=== PATIENT | female | born 1980 | race Caucasian/White ===

== ENCOUNTER 2021-05-12 10:31 | Outpatient (REF) | payer OTHER, SELFPAY ==
[2021-05-12 12:30] LABS: MANUAL DIFF FLAG NO
[2021-05-12 12:36] LABS: Appearance Urine CLOUDY; Color Urine YELLOW; Glucose Urine UA NEG (NEG); Leukocyte Esterase Urine NEG (NEG); Nitrite Urine NEG (NEG); PH 5.5 (5.0-8.0); Specific Gravity - Urine >= 1.030 (1.005-1.025); Urine Blood NEG (NEG); Urine Ketones NEG (NEG); Urine Protein NEG (NEG-TRACE)
[2021-05-12 12:38] LABS: Basophils Absolute Auto 0.1 X10*3/uL (0.0-0.2); Basophils Percent Auto 0.8 % (0-2); Eosinophils Absolute Auto 0.3 X10*3/uL (0.0-0.4); Eosinophils Percent Auto 4.1 % (0-4); Hemoglobin 12.5 g/dl (12.0-16.0); Imm Gran Abs Auto 0.02 X10*3/uL (0.00-0.03); Imm Gran Pct Auto 0.3 % (0.0-0.4); Lymphocytes Absolute Auto 1.5 X10*3/uL (1.2-4.9); Lymphocytes Percent Auto 22.8 % (20-40); Mean Corpuscular HGB Conc 32.9 g/dl (31.0-35.0); Mean Corpuscular Hemoglobin 29.5 pg (27.0-33.0); Mean Corpuscular Volume 89.6 fL (80.0-98.0); Mean Platelet Volume 11.7 fL (9.4-12.3); Monocytes Absolute Auto 0.4 X10*3/uL (0.1-1.2); Monocytes Percent Auto 6.4 % (2-11); Neutrophils Absolute Auto 4.3 x10*3/uL (2.0-8.3); Neutrophils Percent Auto 65.6 % (45-73); Platelet Count 262 X10*3/uL (160-400); Red Blood Count 4.24 X10*6/uL (4.20-5.50); Red Cell Distribution Width 11.9 % (11.0-16.0); White Blood Count 6.5 X10*3/uL (4.8-10.8)
[2021-05-12 13:07] LABS: Alanine Aminotransferase 13 U/L (0-31); Alkaline Phosphatase 92 U/L (39-117); Anion Gap 13 (12-20); Aspartate Amino Transferase 14 U/L (5-31); Bilirubin Total 0.3 mg/dL (0.0-1.0); Blood Urea Nitrogen 11 mg/dL (9-16); Calcium 9.3 mg/dL (8.4-10.2); Carbon Dioxide 24 mmol/L (22-29); Chloride 106 mmol/L (96-108); Cholesterol 207 mg/dL; Estimated Glomerular Filt Rate > 60; Glucose Fasting 90 mg/dL (60-99); HDL Cholesterol 68 mg/dL; LDL Cholesterol Calculated 124 mg/dl; Sodium 139 mmol/L (135-145); Total Protein 6.8 g/dL (6.5-8.0); Triglycerides 79 mg/dL
[2021-05-12 13:28] LABS: TSH reflex Free T4 1.71 uIU/mL (0.32-4.0)
== END 2021-05-12 10:32 | disposition home or self-care (01) ==
LOC: HO.HMGCLDS 10:31
PROVIDERS: PCP Nurse Practitioner Family; Visit Provider Nurse Practitioner Family
DX: Z00.00 Encounter for general adult medical examination without abnormal findings (principal)
CPT/HCPCS: 36415; 80053; 80061; 81003; 84443; 85025

== ENCOUNTER 2021-09-11 09:43 | Outpatient (REF) | payer OTHER, SELFPAY ==
--- NOTE | ~2021-09-11 | XR_ITS ---
EXAMINATION: XR CHEST CLINICAL INFORMATION: R07.9 - Chest pain, unspecified COMPARISON: None TECHNIQUE: 2 views of the chest were obtained. FINDINGS: The lungs are clear. There is no pneumothorax or pleural reaction, airspace opacity, or effusion. The heart is normal in size. The hilar and mediastinal contours are normal. There is gentle dextrocurvature thoracic spine. Bony structures are otherwise unremarkable. XR/XR chest 2V IMPRESSION: Unremarkable examination.
[2021-09-11 11:38] LABS: MANUAL DIFF FLAG NO
[2021-09-11 11:58] LABS: Basophils Percent Auto 0.5 % (0-2); Eosinophils Absolute Auto 0.2 X10*3/uL (0.0-0.4); Eosinophils Percent Auto 3.1 % (0-4); Hematocrit 36.7 % (37.0-47.0); Hemoglobin 12.1 g/dl (12.0-16.0); Imm Gran Abs Auto 0.01 X10*3/uL (0.00-0.03); Imm Gran Pct Auto 0.2 % (0.0-0.4); Lymphocytes Absolute Auto 1.3 X10*3/uL (1.2-4.9); Lymphocytes Percent Auto 19.4 % (20-40); Mean Corpuscular Hemoglobin 28.7 pg (27.0-33.0); Mean Corpuscular Volume 87.2 fL (80.0-98.0); Mean Platelet Volume 11.3 fL (9.4-12.3); Monocytes Absolute Auto 0.4 X10*3/uL (0.1-1.2); Monocytes Percent Auto 6.1 % (2-11); Neutrophils Absolute Auto 4.6 x10*3/uL (2.0-8.3); Neutrophils Percent Auto 70.7 % (45-73); Platelet Count 281 X10*3/uL (160-400); Red Blood Count 4.21 X10*6/uL (4.20-5.50); Red Cell Distribution Width 12.2 % (11.0-16.0); White Blood Count 6.5 X10*3/uL (4.8-10.8)
[2021-09-11 12:03] LABS: Anion Gap 11 (12-20); Blood Urea Nitrogen 14 mg/dL (9-16); Calcium 9.4 mg/dL (8.4-10.2); Carbon Dioxide 25 mmol/L (22-29); Chloride 105 mmol/L (96-108); Estimated Glomerular Filt Rate > 60; Glucose Random 96 mg/dL (60-115); Potassium 4.3 mmol/L (3.3-5.1); Sodium 137 mmol/L (135-145)
[2021-09-11 12:29] LABS: TSH reflex Free T4 0.46 uIU/mL (0.32-4.0)
[2021-09-11 12:38] LABS: Folate > 20.0 ng/mL (> or = 4.0); Vitamin B12 500 pg/mL (200-900)
[2021-09-15 12:47] LABS: Vitamin D 25-OH, D2 <4 ng/mL; Vitamin D 25-OH, D3 25 ng/mL; Vitamin D 25-OH, Total 25 ng/mL (30-100)
== END 2021-09-11 09:44 | disposition home or self-care (01) ==
LOC: HO.HMGCX 09:43
PROVIDERS: PCP Nurse Practitioner Family; Visit Provider Physician Assistant
DX: R07.9 Chest pain, unspecified (principal); R55 Syncope and collapse; R20.2 Paresthesia of skin
CPT/HCPCS: 36415; 71046; 80048; 82306; 82607; 82746; 84443; 85025

== ENCOUNTER 2021-11-11 09:52 | Outpatient (REF) | payer OTHER, SELFPAY ==
[2021-11-11 11:29] LABS: MANUAL DIFF FLAG NO
[2021-11-11 11:31] LABS: Basophils Percent Auto 0.4 % (0-2); Eosinophils Absolute Auto 0.3 X10*3/uL (0.0-0.4); Eosinophils Percent Auto 3.3 % (0-4); Hemoglobin 12.1 g/dl (12.0-16.0); Imm Gran Abs Auto 0.04 X10*3/uL (0.00-0.03); Imm Gran Pct Auto 0.4 % (0.0-0.4); Lymphocytes Absolute Auto 1.1 X10*3/uL (1.2-4.9); Lymphocytes Percent Auto 11.9 % (20-40); Mean Corpuscular HGB Conc 32.7 g/dl (31.0-35.0); Mean Corpuscular Hemoglobin 28.9 pg (27.0-33.0); Mean Corpuscular Volume 88.5 fL (80.0-98.0); Mean Platelet Volume 11.2 fL (9.4-12.3); Monocytes Absolute Auto 0.6 X10*3/uL (0.1-1.2); Monocytes Percent Auto 5.9 % (2-11); Neutrophils Absolute Auto 7.4 x10*3/uL (2.0-8.3); Neutrophils Percent Auto 78.1 % (45-73); Platelet Count 237 X10*3/uL (160-400); Red Blood Count 4.18 X10*6/uL (4.20-5.50); Red Cell Distribution Width 12.6 % (11.0-16.0); White Blood Count 9.5 X10*3/uL (4.8-10.8)
[2021-11-11 11:36] LABS: Appearance Urine CLEAR; Color Urine YELLOW; Glucose Urine UA NEG (NEG); Leukocyte Esterase Urine TRACE (NEG); Nitrite Urine NEG (NEG); Specific Gravity - Urine 1.015 (1.005-1.025); Urine Blood NEG (NEG); Urine Ketones NEG (NEG); Urine Protein NEG (NEG-TRACE)
[2021-11-11 11:51] LABS: Alanine Aminotransferase 10 U/L (0-31); Albumin Level 3.9 g/dL (3.5-5.0); Alkaline Phosphatase 91 U/L (39-117); Anion Gap 13 (12-20); Aspartate Amino Transferase 13 U/L (5-31); Bilirubin Total 0.4 mg/dL (0.0-1.0); Blood Urea Nitrogen 13 mg/dL (9-16); Carbon Dioxide 23 mmol/L (22-29); Chloride 105 mmol/L (96-108); Cholesterol 216 mg/dL; Estimated Glomerular Filt Rate > 60; Glucose Fasting 93 mg/dL (60-99); HDL Cholesterol 74 mg/dL; LDL Cholesterol Calculated 120 mg/dl; Sodium 137 mmol/L (135-145); Total Protein 6.9 g/dL (6.5-8.0); Triglycerides 110 mg/dL
[2021-11-11 11:54] LABS: RBC Urine 0 /HPF (0); Squamous Epithelial Cell Urine 2+ /LPF
[2021-11-11 11:55] LABS: Bacteria Urine TRACE /LPF; Mucus Urine TRACE /LPF
[2021-11-11 12:14] LABS: TSH reflex Free T4 1.85 uIU/mL (0.32-4.0)
== END 2021-11-11 09:53 | disposition home or self-care (01) ==
LOC: HO.HMGCLDS 09:52
PROVIDERS: PCP Nurse Practitioner Family; Visit Provider Nurse Practitioner Family
DX: R07.9 Chest pain, unspecified (principal)
CPT/HCPCS: 36415; 80053; 80061; 81001; 84443; 85025

== ENCOUNTER 2021-11-14 11:25 | Emergency (ER) | payer OTHER, SELFPAY ==
--- NOTE | ~2021-11-14 | CT_ITS ---
EXAMINATION: CT SOFT TISSUE NECK WITH CONTRAST CLINICAL INFORMATION: Right-sided tonsillar swelling. COMPARISON: No relevant prior imaging. TECHNIQUE: Following the intravenous administration of 100 mL of Omnipaque 350 intravenous contrast, helical imaging was performed in the axial plane with generation of coronal and sagittal reformatted images. This CT examination was performed using dose optimization techniques as appropriate, variously including the following: *Automated exposure control *Adjustment of mA and/or kV according to patient size (this includes techniques or standardized protocols for targeted exams where dose is matched to indication/reason for exam; i.e. extremities or head) *Use of iterative reconstruction technique DLP: 612 mGy-cm FINDINGS: There is a peripherally enhancing collection within the right peritonsillar region best depicted on axial image 27 of 89 series 6 measuring 2.2 cm in maximal transaxial dimension. Possible subtle stranding within the parapharyngeal fat. There are a few nearby a right level II cervical lymph nodes that demonstrate subtle enhancement however the size of these lymph nodes remains within limits of normal variation and there are no worrisome enhancement characteristics associated with these lymph nodes to suggest capsular invasion or central necrosis. There is no mediastinal or axillary adenopathy is visualized within the [id number] of this examination. Manager Benefit spaces are symmetric. The parotid and submandibular glands are normal. The tongue base and epiglottis are normal. Preepiglottic fat is preserved. Glottic and subglottic airways are patent. The thyroid gland is normal and the remainder of the visualized visceral soft tissues are normal. Lung apices are clear. The aortic arch apex is normal. Cervical carotid and vertebral arteries are grossly patent. Internal jugular veins fill symmetrically. There is no acute osseous finding. No worrisome lytic or blastic osseous lesion. CT/CT soft tissue neck w con IMPRESSION: There is a nonspecific cystic right peritonsillar lesion that measures up to 2.2 cm in maximal transaxial dimension. Possible diagnostic considerations include a peritonsillar abscess or a centrally necrotic right tonsillar neoplasm. Correlation with clinical examination is therefore recommended with regard to these possibilities. There are a few asymmetrically prominent albeit otherwise nonspecific right sided level II cervical lymph nodes, none of which demonstrate worrisome enhancement characteristics to suggest capsular invasion or central necrosis.
[2021-11-14 13:06] VITALS: BP 156/99; PULSE 76; RESP 19; TEMP 36.6; O2SAT 98; BMI 32.0
--- NOTE | 2021-11-14 13:47 | ED_ITS ---
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 MD elicited complaint: sore throat Pertinent past history: asthma Onset (ago): day(s) (5) Consistency: progressively worsening Severity: moderate Description of mucous: clear Able to tolerate fluids by mouth: Yes Exacerbating factors: swallowing Relieving factors: nothing Associated symptoms: voice changes Treatments prior to arrival: ibuprofen (7am, prednisone today as well) Related Data Home Medications Medication Instructions Recorded Confirmed metformin 500 mg tablet 500 mg PO BID 05/09/21 11/07/21 Previous Rx's Medication Instructions Recorded albuterol sulfate 90 mcg/actuation 2 puff PO Q4H PRN wheezing #6.7 05/09/21 aerosol inhaler (ProAir HFA) grams albuterol sulfate 90 mcg/actuation 2 inh inhalation Q6H PRN shortness 05/29/21 breath activated powder inhaler of breath or wheezing #1 ea (ProAir RespiClick) cetirizine 10 mg tablet (All Day 10 mg PO DAILY PRN allergy 10/02/21 Allergy (cetirizine)) symptoms 90 days #90 tabs levothyroxine 100 mcg tablet 100 mcg PO DAILY #90 tabs 10/06/21 ibuprofen 800 mg tablet 800 mg PO Q8H PRN pain #30 tabs 11/11/21 prednisone 20 mg tablet 40 mg PO DAILY 5 days #10 tabs 11/11/21 amoxicillin 500 mg tablet 500 mg PO BID 10 days #20 tabs 11/14/21 amoxicillin 875 mg-potassium 1 tab PO BID 10 days #20 tabs 11/14/21 clavulanate 125 mg tablet hydrocodone 5 mg-acetaminophen 325 1 tab PO Q6H PRN pain #10 tabs 11/14/21 mg tablet ondansetron 4 mg disintegrating 4 mg PO Q8H PRN nausea and 11/14/21 tablet vomiting #20 tabs Allergies Allergy/AdvReac Type Severity Reaction Status Date / Time aspirin Allergy Mild mild Verified 11/14/21 08:58 Review of Systems Review of Systems: Constitutional : No Fever, pos Chills, No Fatigue, No Malaise ENT/Mouth : pos sore throat, No Rhinorrhea Eyes: No Eye Pain, No Swelling, No Redness Cardiovascular : No Chest Pain, No SOB Respiratory : No Cough, No Sputum, No Wheezing Gastrointestinal : No Nausea, No Vomiting, No Diarrhea Genitourinary : No Dysuria, No Urinary Frequency, No Hematuria, Musculoskeletal : No joint pain, No Myalgias, No Joint Swelling Skin : No Skin Lesions, No rash Neuro : No Weakness, No Numbness, No Dizziness, No Headache Psych : No Anxiety/Panic, No Depression Heme/Lymph: No Bruising, No Bleeding, pos Lymphadenopathy All other systems reviewed and are negative [facility] Past Medical History Attestation statement: The following information was validated with the patient. Medical History Asthma PCOS (polycystic ovarian syndrome) Social History Social History Housing: Apartment Patient Tobacco Use Status: Never used Tobacco e-Cigarette/Vaping Use: Never Used Second Hand Smoke Exposure: No Advance Directives: No Advance Directives Information Provided: Yes service: No Current occupational status: employed Current occupation: [employer] Current occupational exposures/hazards: No Cognitive needs: No Hearing needs: No Vision needs: No Physical Exam Vital Signs: Vital Signs: Last Vital Signs Temp 98 F 11/14/21 13:06 Pulse 76 11/14/21 13:06 Resp 19 11/14/21 13:06 BP 156/99 H 11/14/21 13:06 Pulse Ox 98 11/14/21 13:06 O2 Del Method 11/14/21 13:06 BMI result Body Mass Index 32.0 Appearance: Alert. Oriented X3. No acute distress. Eyes: Pupils equal, round and reactive to light. ENT: Pharynx moderate swelling of R tonsil uvula is midline no exudates noted Neck: Normal inspection. Neck supple. mild anterior cervical lymphadenophathy noted CVS: Normal heart rate and rhythm. Pulses normal. Respiratory: No respiratory distress. Breath sounds normal. Abdomen: Soft and nontender. Skin: Skin warm and dry. Normal skin color. Normal skin turgor. Extremities: No lower extremity edema. No calf ttp Neuro: Oriented X 3. No motor deficit. No sensory deficit. 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 Dispo per r esults and findings. Lab Data Result diagrams: 11/14/21 14:39 11/14/21 14:39 Labs: Lab Results 11/14/21 11/14/21 Range/Units 14:39 14:39 WBC 12.6 H (4.8-10.8) X10*3/uL RBC 4.24 (4.20-5.50) X10*6/uL Hgb 12.5 (12.0-16.0) g/dl Hct 37.3 (37.0-47.0) % MCV 88.0 (80.0-98.0) fL MCH 29.5 (27.0-33.0) pg MCHC 33.5 (31.0-35.0) g/dl RDW 12.7 (11.0-16.0) % Plt Count 263 (160-400) X10*3/uL MPV 11.3 (9.4-12.3) fL Immature Gran % (Auto) 0.4 (0.0-0.4) % Neut % (Auto) 83.2 H (45-73) % Lymph % (Auto) 11.6 L (20-40) % [place] % (Auto) 4.5 (2-11) % Eos % (Auto) 0.1 (0-4) % Baso % (Auto) 0.2 (0-2) % Lymph # (Auto) 1.5 (1.2-4.9) X10*3/uL [place] # (Auto) 0.6 (0.1-1.2) X10*3/uL Eos # (Auto) 0.0 (0.0-0.4) X10*3/uL Baso # (Auto) 0.0 (0.0-0.2) X10*3/uL Abs Immat Gran (auto) 0.05 H (0.00-0.03) X10*3/uL Absolute Neuts (auto) 10.5 H (2.0-8.3) x10*3/uL Absolute Nucleated RBC 0.000 (0.0-0.012) X10*3/uL Nucleated RBC % (auto) 0.0 (0.0-0.2) /100WBC Sodium 137 (135-145) mmol/L Potassium 4.5 (3.3-5.1) mmol/L Chloride 103 (96-108) mmol/L Carbon Dioxide 23 (22-29) mmol/L Anion Gap 16 (12-20) BUN 11 (9-16) mg/dL Creatinine 0.67 (0.5-1.4) mg/dL Estim Creat Clear Calc 107.8 Estimated GFR > 60 Random Glucose 129 H (60-115) mg/dL Calcium 9.2 (8.4-10.2) mg/dL Beta HCG, Quant < 2 mIU/mL Procedures Abscess I/D Site: oral (R CREDIT UNION TELLER) Side (if applicable): right Local Anesthetic: lidocaine 1% Amount of anesthesia used (mL): 1 Technique: needle aspiration Amount of fluid expressed (mL): 0 Sent for culture/gram staining?: No Irrigation: No Packing used?: none Complications: other (unable to aspirate after 3 attempts - last attempt done by Dr. Bailey) Discharge Plan Discharge Clinical Impression: Abscess, peritonsillar Pharyngitis Qualifiers: Pharyngitis/tonsillitis etiology: unspecified etiology Qualified Code(s): J02.9 - Acute pharyngitis, unspecified Patient Disposition: Home, Self-Care Instructions: Pharyngitis (ED), Peritonsillar Abscess (ED) Additional Instructions: return to ED for any worsening symptoms or concerns soft foods for next 3 days very minimal scant streaked blood is okay do not take aspirin large amounts of blood or clots is not normal seek care if this happens you can also try [facility] [address] [id number] [phone] [facility] [address] [facility] [phone] Prescriptions: New amoxicillin-pot clavulanate 875-125 mg tablet 1 tab PO BID 10 Days Qty: 20 0RF hydrocodone-acetaminophen 5-325 mg tablet 1 tab PO Q6H PRN (Reason: pain) Qty: 10 0RF Rx Instructions: partial fill okay; Partial Fill upon patient request. ondansetron 4 mg tablet,disintegrating 4 mg PO Q8H PRN (Reason: nausea and vomiting) Qty: 20 0RF No Action ProAir RespiClick 90 mcg/actuation aerosol powdr breath activated 2 inh inhalation Q6H PRN (Reason: shortness of breath or wheezing) Qty: 1 0RF cetirizine [All Day Allergy (cetirizine)] 10 mg tablet 10 mg PO DAILY PRN (Reason: allergy symptoms) 90 Days Qty: 90 1RF levothyroxine 100 mcg tablet 100 mcg PO DAILY Qty: 90 0RF metformin 500 mg tablet 500 mg PO BID albuterol sulfate [ProAir HFA] 90 mcg/actuation HFA aerosol inhaler 2 puff PO Q4H PRN (Reason: wheezing) Qty: 6.7 4RF prednisone 20 mg tablet 40 mg PO DAILY 5 Days Qty: 10 0RF ibuprofen 800 mg tablet 800 mg PO Q8H PRN (Reason: pain) Qty: 30 0RF amoxicillin 500 mg tablet 500 mg PO BID 10 Days Qty: 20 0RF Referrals: Rafael Han [Physician] - 1 day Stand Alone Forms: Work/School Release
[2021-11-14 14:43] LABS: MANUAL DIFF FLAG NO
[2021-11-14 14:47] LABS: Basophils Percent Auto 0.2 % (0-2); Eosinophils Percent Auto 0.1 % (0-4); Hematocrit 37.3 % (37.0-47.0); Hemoglobin 12.5 g/dl (12.0-16.0); Imm Gran Abs Auto 0.05 X10*3/uL (0.00-0.03); Imm Gran Pct Auto 0.4 % (0.0-0.4); Lymphocytes Absolute Auto 1.5 X10*3/uL (1.2-4.9); Lymphocytes Percent Auto 11.6 % (20-40); Mean Corpuscular HGB Conc 33.5 g/dl (31.0-35.0); Mean Corpuscular Hemoglobin 29.5 pg (27.0-33.0); Mean Platelet Volume 11.3 fL (9.4-12.3); Monocytes Absolute Auto 0.6 X10*3/uL (0.1-1.2); Monocytes Percent Auto 4.5 % (2-11); Neutrophils Absolute Auto 10.5 x10*3/uL (2.0-8.3); Neutrophils Percent Auto 83.2 % (45-73); Platelet Count 263 X10*3/uL (160-400); Red Blood Count 4.24 X10*6/uL (4.20-5.50); Red Cell Distribution Width 12.7 % (11.0-16.0); White Blood Count 12.6 X10*3/uL (4.8-10.8)
[2021-11-14] MEDS: Famotidine/PF 20 MG/2 ML VIAL IVPUSH (14:54)
[2021-11-14] MEDS: Ketorolac Tromethamine 15 MG/ML VIAL 30 MG IVPUSH (14:56)
[2021-11-14] MEDS: 0.9 % Sodium Chloride 1,000 ML 999 ML IV (14:59)
[2021-11-14 15:00] LABS: Anion Gap 16 (12-20); Blood Urea Nitrogen 11 mg/dL (9-16); Calcium 9.2 mg/dL (8.4-10.2); Carbon Dioxide 23 mmol/L (22-29); Chloride 103 mmol/L (96-108); Creatinine Clr Calc Pharmacy 107.8; Estimated Glomerular Filt Rate > 60; Glucose Random 129 mg/dL (60-115); Potassium 4.5 mmol/L (3.3-5.1); Sodium 137 mmol/L (135-145)
[2021-11-14] MEDS: Piperacillin Sodium/Tazobactam 3.375 GM in 0.9 % Sodium Chloride 50 ML IV (15:01)
[2021-11-14 15:09] LABS: HCG Quantitative < 2 mIU/mL
[2021-11-14] MEDS: iohexoL 350 MG/ML 100 ML INFUS..BTL IV (15:25)
== END 2021-11-14 17:31 | disposition home or self-care (01) ==
PROVIDERS: Emergency Provider Emergency Medicine; PCP Nurse Practitioner Family
DX: J36 Peritonsillar abscess (principal); J02.9 Acute pharyngitis, unspecified; J45.909 Unspecified asthma, uncomplicated
CPT/HCPCS: 10160; 36415; 70491; 80048; 84702; 85025; 96365; 96375; 99284; J1885; J2543; Q9967

== ENCOUNTER 2022-05-10 11:16 | Outpatient (REF) | payer OTHER, SELFPAY ==
[2022-05-10 14:51] LABS: TSH reflex Free T4 1.46 uIU/mL (0.32-4.0)
[2022-05-10 15:06] LABS: Influenza A PCR NEGATIVE (Negative); Influenza B PCR NEGATIVE (Negative); Resp Syncy Virus RNA Qual PCR NEGATIVE (Negative); SARS COV2 PCR INHOUSE NEGATIVE (Negative)
== END 2022-05-10 11:17 | disposition home or self-care (01) ==
LOC: HO.HMGCLDS 11:16
PROVIDERS: PCP Nurse Practitioner Family; Visit Provider Physician Assistant
DX: Z20.822 Contact with and (suspected) exposure to COVID-19 (principal); E03.9 Hypothyroidism, unspecified; B34.9 Viral infection, unspecified
CPT/HCPCS: 0241U; 36415; 84443

== ENCOUNTER 2022-09-08 09:25 | Outpatient (REF) | payer OTHER, SELFPAY ==
[2022-09-08 11:06] LABS: MANUAL DIFF FLAG NO
[2022-09-08 11:12] LABS: Appearance Urine Clear; Color Urine Yellow; Glucose Urine UA Negative (Negative); Leukocyte Esterase Urine Negative (Negative); Nitrite Urine Negative (Negative); Specific Gravity - Urine 1.025 (1.005-1.025); Urine Blood Negative (Negative); Urine Ketones Negative (Negative); Urine Protein Negative (Neg-Trace)
[2022-09-08 11:14] LABS: Basophils Percent Auto 0.4 % (0-2); Eosinophils Absolute Auto 0.2 X10*3/uL (0.0-0.4); Eosinophils Percent Auto 2.6 % (0-4); Hematocrit 34.9 % (37.0-47.0); Hemoglobin 11.8 g/dl (12.0-16.0); Imm Gran Abs Auto 0.03 X10*3/uL (0.00-0.03); Imm Gran Pct Auto 0.4 % (0.0-0.4); Lymphocytes Absolute Auto 1.3 X10*3/uL (1.2-4.9); Lymphocytes Percent Auto 17.1 % (20-40); Mean Corpuscular HGB Conc 33.8 g/dl (31.0-35.0); Mean Corpuscular Hemoglobin 29.6 pg (27.0-33.0); Mean Corpuscular Volume 87.7 fL (80.0-98.0); Mean Platelet Volume 11.9 fL (9.4-12.3); Monocytes Absolute Auto 0.4 X10*3/uL (0.1-1.2); Monocytes Percent Auto 5.3 % (2-11); Neutrophils Absolute Auto 5.8 x10*3/uL (2.0-8.3); Neutrophils Percent Auto 74.2 % (45-73); Platelet Count 198 X10*3/uL (160-400); Red Blood Count 3.98 X10*6/uL (4.20-5.50); White Blood Count 7.8 X10*3/uL (4.8-10.8)
[2022-09-08 11:33] LABS: Alanine Aminotransferase 10 U/L (0-31); Albumin Level 3.4 g/dL (3.5-5.0); Alkaline Phosphatase 72 U/L (39-117); Anion Gap 12 (12-20); Aspartate Amino Transferase 11 U/L (5-31); Bilirubin Total 0.3 mg/dL (0.0-1.0); Blood Urea Nitrogen 7 mg/dL (9-16); Calcium 8.6 mg/dL (8.4-10.2); Carbon Dioxide 23 mmol/L (22-29); Chloride 106 mmol/L (96-108); Cholesterol 257 mg/dL; Estimated Glomerular Filt Rate > 60; Glucose Fasting 77 mg/dL (60-99); HDL Cholesterol 84 mg/dL; LDL Cholesterol Calculated 151 mg/dl; Potassium 3.7 mmol/L (3.3-5.1); Sodium 137 mmol/L (135-145); Total Protein 6.1 g/dL (6.5-8.0); Triglycerides 112 mg/dL
[2022-09-08 11:51] LABS: TSH reflex Free T4 0.58 uIU/mL (0.32-4.0)
== END 2022-09-08 09:26 | disposition home or self-care (01) ==
LOC: HO.HMGCLDS 09:25
PROVIDERS: PCP Nurse Practitioner Family; Visit Provider Nurse Practitioner Family
DX: Z00.00 Encounter for general adult medical examination without abnormal findings (principal)
CPT/HCPCS: 36415; 80053; 80061; 81003; 84443; 85025

== ENCOUNTER 2022-10-29 08:22 | Outpatient (REF) | payer OTHER, SELFPAY ==
[2022-10-29 11:12] LABS: MANUAL DIFF FLAG NO
[2022-10-29 11:31] LABS: Basophils Percent Auto 0.4 % (0-2); Eosinophils Absolute Auto 0.3 X10*3/uL (0.0-0.4); Eosinophils Percent Auto 2.6 % (0-4); Hematocrit 33.8 % (37.0-47.0); Imm Gran Abs Auto 0.05 X10*3/uL (0.00-0.03); Imm Gran Pct Auto 0.5 % (0.0-0.4); Immature Retic Fraction 25.5 % (3.0-15.9); Lymphocytes Absolute Auto 1.5 X10*3/uL (1.2-4.9); Lymphocytes Percent Auto 13.7 % (20-40); Mean Corpuscular HGB Conc 32.5 g/dl (31.0-35.0); Mean Corpuscular Hemoglobin 29.8 pg (27.0-33.0); Mean Corpuscular Volume 91.6 fL (80.0-98.0); Mean Platelet Volume 12.3 fL (9.4-12.3); Monocytes Absolute Auto 0.5 X10*3/uL (0.1-1.2); Monocytes Percent Auto 4.7 % (2-11); Neutrophils Absolute Auto 8.3 x10*3/uL (2.0-8.3); Neutrophils Percent Auto 78.1 % (45-73); Platelet Count 185 X10*3/uL (160-400); Red Blood Count 3.69 X10*6/uL (4.20-5.50); Red Cell Distribution Width 12.8 % (11.0-16.0); Retic HGB Equivalent 34.8 pg (30.0-35.0); Reticulocyte Percent 2.3 % (0.5-1.8); Reticulocytes Absolute 0.083 X10*6/uL (0.026-0.095); White Blood Count 10.6 X10*3/uL (4.8-10.8)
[2022-10-29 11:51] LABS: Cholesterol 273 mg/dL; HDL Cholesterol 94 mg/dL; Iron 38 mcg/dL (30-160); LDL Cholesterol Calculated 155 mg/dl; Percent Iron Saturation 9 % (15-50); Total Iron Binding Capacity 419 mcg/dL (228-428); Triglycerides 122 mg/dL; Unsaturated Iron Binding 381 ug/dL
[2022-10-29 12:27] LABS: Ferritin 12 ng/mL (10-250); Folate 14.1 ng/mL (> or = 4.0); Vitamin B12 529 pg/mL (200-900)
== END 2022-10-29 08:23 | disposition home or self-care (01) ==
LOC: HO.HMGCLDS 08:22
PROVIDERS: PCP Nurse Practitioner Family; Visit Provider Nurse Practitioner Family
DX: D64.9 Anemia, unspecified (principal); E78.5 Hyperlipidemia, unspecified
CPT/HCPCS: 36415; 80061; 82607; 82728; 82746; 83540; 85025; 85045

== ENCOUNTER 2023-01-28 09:34 | Outpatient (AMB) | payer OTHER, SELFPAY ==
[2023-01-28 09:37] VITALS: BP 124/82; PULSE 74; O2SAT 98; BMI 36.3
--- NOTE | 2023-01-28 09:37 | A.OFFPC_ITS ---
Vital Signs 01/28/23 09:37 Height 5 ft 2 in Weight 198 lb 6 oz BMI 36.3 BP 124/82 Blood Pressure Location Rt brachial Position Sitting Pulse 74 Pulse Source Pulse Oximeter Pulse Oximetry (%) 98 Oxygen Delivery Method Room Air Intake Visit Reasons: 6 month follow up High BP Allergies aspirin Allergy (Mild, Verified 01/28/23 09:39) mild Tobacco use date assessed: 01/28/23 Dental Screening Dental Screen Date: 01/28/23 Did you have a dental visit in the last 12 months?: Yes Did you have a dental problem in the last 6 months where you did not have access to dental care?: No Was dental information given to patient?: Patient has dentist HPI 6 month follow up High BP HPI Details Hypothyroid: On levothyroxine 100mcg, 2 days a week she takes 200mcg due to . Will order labs. Denies cold intolerance, fatigue, hair loss, and constipation. Dyslipidemia: Will order labs. [facility] Medical History Asthma PCOS (polycystic ovarian syndrome) Social History (Reviewed 07/31/22 @ 14:12 by Juan Barfield [facility] Housing: Apartment Patient Tobacco Use Status: Never used Tobacco e-Cigarette/Vaping Use: Never Used Second Hand Smoke Exposure: No service: No Current occupational status: employed Current occupation: [employer] Current occupational exposures/hazards: No Cognitive needs: No Hearing needs: No Vision needs: No Questionnaire Thrive Questionnaire Date Thrive assessed: 05/09/21 MARSHALL-7 AMB Questionnaire MARSHALL-7 Date MARSHALL - 7 assessed: 05/09/21 Source: Developed by Drs. Pedro Carmona, Alla Harvey, Adonis Ansari and colleagues, with an educational abraham from [employer]. Review of Systems Const Reports as per HPI Physical exam (Primary Care) Vital Signs: Last Vital Signs Pulse 74 01/28/23 09:37 BP 124/82 01/28/23 09:37 Pulse Ox 98 01/28/23 09:37 Oxygen Delivery Method Room Air 01/28/23 09:37 BMI result Body Mass Index 36.3 Tobacco/Smoking Status: Tobacco use Status Tobacco use date assessed 01/28/23 01/28/23 09:43 Patient Tobacco Use Status Never used Tobacco 01/28/23 09:43 e-Cigarette/Vaping Use Never Used 01/28/23 09:43 Thrive Assessment: Date of Thrive Assessment Date Thrive assessed 05/09/21 01/28/23 09:43 Const General: cooperative Orientation/consciousness: patient oriented x3 Resp Effort & Inspection: normal respiratory effort Auscultation: clear to auscultation bilaterally Cardio Rate: regular rate Rhythm: regular rhythm Heart sounds: S1 normal heart sound present and S2 normal heart sound present Neuro General: patient oriented x3 Psych Appearance: grossly normal Mental Status: mental status grossly normal Speech and movement: Normal speech and movement present Affect: normal affect Attitude: cooperative Thought process: Normal thought process present Thought content: Normal thought content present Insight: Good insight present (Psych) Judgement: Good judgement present (Psych) Assessment and Plan Assessment & Plan (1) Hypothyroidism: Code(s): E03.9 - Hypothyroidism, unspecified Plan: Labs ordered (2) Dyslipidemia: Code(s): E78.5 - Hyperlipidemia, unspecified Plan: Labs ordered Plan The patient agreed to the use of a medical scientific liaison for this encounter. Scribed for [facility] by Denisa Caballero medical scientific liaison, on 01/28/2023 at 09:55 EST. Orders: Orders Complete Blood Count Auto Diff Today E03.9 - Hypothyroidism, unspecified Comprehensive Met. Panel Today E03.9 - Hypothyroidism, unspecified TSH reflex Free T4 Today E03.9 - Hypothyroidism, unspecified UA CC w/rflx Micro + Cult Today E03.9 - Hypothyroidism, unspecified Lipid Panel Today E03.9 - Hypothyroidism, unspecified, E78.5 - Hyperlipidemia, unspecified Coding Level of Care Code Est Pt Level 3 (12839) Diagnoses Hypothyroidism E03.9 Dyslipidemia E78.5
== END 2023-01-28 10:22 | disposition home or self-care (01) ==
PROVIDERS: Visit Provider Nurse Practitioner Family
DX: E03.9 Hypothyroidism, unspecified (principal); E78.5 Hyperlipidemia, unspecified
CPT/HCPCS: 99213

== ENCOUNTER 2023-03-08 12:36 | Outpatient (REF) | payer OTHER, SELFPAY ==
[2023-03-08 16:10] LABS: MANUAL DIFF FLAG NO
[2023-03-08 16:13] LABS: Appearance Urine Clear; Color Urine Yellow; Glucose Urine UA Negative (Negative); Leukocyte Esterase Urine Moderate (2+) (Negative); Nitrite Urine Negative (Negative); PH 6.5 (5.0-9.0); Specific Gravity - Urine 1.015 (1.005-1.025); UMIC TRIGGER UACC YES; Urine Blood Negative (Negative); Urine Ketones Negative (Negative); Urine Protein Negative (Neg-Trace)
[2023-03-08 16:26] LABS: Bacteria Urine None Seen (None Seen); Hyaline Casts Urine 0-2 /LPF (0-2); RBC Urine 0-2 /HPF (0-2); Squamous Epithelial Cell Urine 0-2 /HPF (0-2); WBC Urine 0-5 /HPF (0-5)
[2023-03-08 16:34] LABS: Basophils Percent Auto 0.7 % (0-2); Eosinophils Absolute Auto 0.4 X10*3/uL (0.0-0.4); Eosinophils Percent Auto 6.5 % (0-4); Hemoglobin 13.1 g/dl (12.0-16.0); Imm Gran Abs Auto 0.02 X10*3/uL (0.00-0.03); Imm Gran Pct Auto 0.3 % (0.0-0.4); Lymphocytes Absolute Auto 1.4 X10*3/uL (1.2-4.9); Lymphocytes Percent Auto 24.6 % (20-40); Mean Corpuscular HGB Conc 32.8 g/dl (31.0-35.0); Mean Corpuscular Hemoglobin 29.7 pg (27.0-33.0); Mean Corpuscular Volume 90.7 fL (80.0-98.0); Mean Platelet Volume 11.6 fL (9.4-12.3); Monocytes Absolute Auto 0.4 X10*3/uL (0.1-1.2); Neutrophils Absolute Auto 3.5 x10*3/uL (2.0-8.3); Neutrophils Percent Auto 60.9 % (45-73); Platelet Count 262 X10*3/uL (160-400); Red Blood Count 4.41 X10*6/uL (4.20-5.50); Red Cell Distribution Width 11.6 % (11.0-16.0); White Blood Count 5.7 X10*3/uL (4.8-10.8)
[2023-03-08 16:54] LABS: Alanine Aminotransferase 13 U/L (0-31); Alkaline Phosphatase 120 U/L (39-117); Anion Gap 14 (12-20); Aspartate Amino Transferase 14 U/L (5-31); Bilirubin Total 0.3 mg/dL (0.0-1.0); Blood Urea Nitrogen 12 mg/dL (9-16); Calcium 9.6 mg/dL (8.4-10.2); Carbon Dioxide 24 mmol/L (22-29); Chloride 103 mmol/L (96-108); Cholesterol 238 mg/dL (<200); Estimated Glomerular Filt Rate > 60; Glucose Random 86 mg/dL (60-115); HDL Cholesterol 82 mg/dL (>40); LDL Cholesterol Calculated 144 mg/dL (<100); Sodium 137 mmol/L (135-145); Total Protein 7.3 g/dL (6.5-8.0); Triglycerides 63 mg/dL (<150)
[2023-03-08 17:11] LABS: TSH reflex Free T4 0.15 uIU/mL (0.32-4.0)
[2023-03-08 17:51] LABS: Free T4 (Free Thyroxine) 1.21 ng/dL (0.71-1.85)
== END 2023-03-08 12:37 | disposition home or self-care (01) ==
LOC: HO.HMGCLDS 12:36
PROVIDERS: PCP Nurse Practitioner Family; Visit Provider Nurse Practitioner Family
DX: E03.9 Hypothyroidism, unspecified (principal); E78.5 Hyperlipidemia, unspecified
CPT/HCPCS: 36415; 80053; 80061; 81001; 84439; 84443; 85025

== ENCOUNTER 2023-03-26 08:04 | Outpatient (AMB) | payer OTHER, SELFPAY ==
[2023-03-26 08:24] VITALS: BP 128/78; PULSE 86; TEMP 36.6; O2SAT 97; BMI 34.4
--- NOTE | 2023-03-26 08:24 | AM.OFFWIN_ITS ---
Intake Vital Signs 03/26/23 08:24 Height 5 ft 2 in Weight 188 lb BMI 34.4 BP 128/78 Blood Pressure Location Rt brachial Position Sitting Pulse 86 Pulse Source Pulse Oximeter Temp 97.8 F Temp Source Temporal Artery Scan Pulse Oximetry (%) 97 Intake Visit Reasons: EST/yeast infection(lobby) Intake Note: pt is here for c/o constipation, pt had a c section in jan and ever since its been hard to have a bowel movement. Patient Tobacco Use Status: Never used Tobacco Allergies aspirin Allergy (Mild, Verified 03/26/23 08:47) mild Medication List - Last Reconciled 03/26/23 by Anton Finley MD albuterol sulfate 90 mcg/actuation 2 puffs inhalation Q6H PRN cetirizine (All Day Allergy (cetirizine)) 10 mg PO DAILY PRN 90 days ferrous sulfate 325 mg PO DAILY levothyroxine 88 mcg PO DAILY metformin 500 mg PO BID Do you need a note to return to daycare/school/sports/work: Yes HPI EST/yeast infection(lobby) HPI Details 42-year-old female presents to the [facility] for a sick visit. Patient had a in January. Subsequently she is reporting symptoms of constipation. During her she had bowel movements 1 to 2 times a week. Now she is having bowel movements once a week. Passing gas from behind. Occasional burping and stomach discomfort. No fevers or chills. Appetite is normal. Urination is normal. [facility] Medical History Asthma PCOS (polycystic ovarian syndrome) Social History Housing: Apartment Patient Tobacco Use Status: Never used Tobacco e-Cigarette/Vaping Use: Never Used Second Hand Smoke Exposure: No service: No Current occupational status: employed Current occupation: [employer] Current occupational exposures/hazards: No Cognitive needs: No Hearing needs: No Vision needs: No Physical Exam Vital Signs: Last Vital Signs Temp 97.8 F 03/26/23 08:24 Pulse 86 03/26/23 08:24 BP 128/78 03/26/23 08:24 Pulse Ox 97 03/26/23 08:24 BMI result Body Mass Index 34.4 Const General: cooperative and healthy appearing Nutritional Appearance: well nourished Orientation/consciousness: patient oriented x3 Limitations: no limitations HEENT Head: Yes normal to inspection Eyes General: appearance normal, both eyes and all related structures Neck Neck: Yes normal visual inspection Chest Chest palpation & inspection: normal palpation of entire chest wall Resp Effort & Inspection: normal respiratory effort Neuro General: patient oriented x3 Assessment & Plan Assessment & Plan (1) Constipation: Code(s): K59.00 - Constipation, unspecified Plan X-ray images personally reviewed by me. X-rays confirm moderate quantities of stool. Patient was advised to try [id number] milk of magnesia or Fleet enema. If symptoms do not improve to follow-up here. Orders: Orders XR abdomen 1V Today K59.00 - Constipation, unspecified Coding Level of Care Code Est Pt Level 4 (20011) Diagnoses Constipation K59.00
== END 2023-03-26 09:14 | disposition home or self-care (01) ==
PROVIDERS: PCP Nurse Practitioner Family; Visit Provider Internal Medicine
DX: K59.00 Constipation, unspecified (principal)
CPT/HCPCS: 99214

== ENCOUNTER 2023-03-26 08:50 | Outpatient (REF) | payer OTHER, SELFPAY ==
--- NOTE | ~2023-03-26 | XR_ITS ---
EXAMINATION: XR ABDOMEN KUB CLINICAL INDICATION: Constipation COMPARISON: None available. TECHNIQUE: AP view of the abdomen. FINDINGS: No dilated loops of bowel to suggest obstruction. Moderate fecal loading of the colon greatest in its ascending segment. Osseous structures are intact. Visualized portions of the lower chest are unremarkable. Soft tissues are unremarkable. XR/XR abdomen 1V IMPRESSION: 1. No dilated loops of bowel to suggest obstruction. 2. Moderate fecal loading of the colon greatest in its ascending segment.
== END 2023-03-26 08:51 | disposition home or self-care (01) ==
LOC: HO.HMGCX 08:50
PROVIDERS: PCP Nurse Practitioner Family; Visit Provider Internal Medicine
DX: K59.00 Constipation, unspecified (principal)
CPT/HCPCS: 74018

== ENCOUNTER 2023-06-15 10:21 | Outpatient (REF) | payer OTHER, SELFPAY ==
[2023-06-15 12:22] LABS: Cholesterol 249 mg/dL (<200); HDL Cholesterol 71 mg/dL (>40); LDL Cholesterol Calculated 161 mg/dL (<100); Triglycerides 88 mg/dL (<150)
[2023-06-15 12:28] LABS: TSH reflex Free T4 2.78 uIU/mL (0.32-4.0)
== END 2023-06-15 10:22 | disposition home or self-care (01) ==
LOC: HO.HMGCLDS 10:21
PROVIDERS: PCP Nurse Practitioner Family; Visit Provider Nurse Practitioner Family
DX: E78.5 Hyperlipidemia, unspecified (principal); E03.9 Hypothyroidism, unspecified
CPT/HCPCS: 36415; 80061; 84443

== ENCOUNTER 2023-07-01 08:01 | Outpatient (AMB) | payer OTHER, SELFPAY ==
[2023-07-01 08:15] VITALS: BP 122/76; PULSE 83; TEMP 36.6; O2SAT 96; BMI 34.4
--- NOTE | 2023-07-01 08:15 | AM.OFFWIN_ITS ---
Intake Vital Signs 07/01/23 08:15 Height 5 ft 2 in Weight 188 lb BMI 34.4 BP 122/76 Blood Pressure Location Lt brachial Position Sitting Pulse 83 Pulse Source Pulse Oximeter Temp 97.9 F Temp Source Oral Pulse Oximetry (%) 96 Oxygen Delivery Method Room Air Intake Visit Reasons: EP LFT hand numb Intake Note: pt is here for c.o bilateral wrist numbness, for roughly 5 months Patient Tobacco Use Status: Never used Tobacco Allergies aspirin Allergy (Mild, Verified 07/01/23 08:15) mild Do you need a note to return to daycare/school/sports/work: No HPI HPI Comments History of Present Illness Details Patient presents to the [facility] for sick visit reports intermittent bilateral hand numbness for the last 5 months denies injury to either hand starts at wrist, worse at night time denies current symptoms to the right hand at this time left hand numbness to the 4th 5th digits [facility] Medical History Asthma PCOS (polycystic ovarian syndrome) Social History Housing: Apartment Patient Tobacco Use Status: Never used Tobacco e-Cigarette/Vaping Use: Never Used Second Hand Smoke Exposure: No service: No Current occupational status: employed Current occupation: [employer] Current occupational exposures/hazards: No Cognitive needs: No Hearing needs: No Vision needs: No Review of Systems Const All systems reviewed & are unremarkable except as noted in HPI and below Physical Exam Vital Signs: BMI result Body Mass Index 34.4 General: awake, alert, oriented. Answers questions appropriately. Fully engaged in examination. Skin: warm, dry, intact HEENT: Normocephalic. Hearing intact. Cardiac: External chest normal in appearance. Respiratory: No cough, audible wheezing or stridor. Abdomen: without gross distension. MS: No obvious swelling or deformities. bilateral hands warm to touch, light and sharp touch sensation intact. cap refill brisk. DTR intact Neurological: Oriented to person, place, time and situation. Thought process intact. Psychiatric: Appropriate mood and affect. Good judgment and insight. Assessment & Plan Assessment & Plan (1) Hand paresthesia: Code(s): R20.2 - Paresthesia of skin Plan presented to the walkin with complaints of intermittent bilateral hand numbness for last 5 months Circulation intact, light touch and sharp sensations intact, cap refill brisk. referral placed to ortho, symptoms consistent with carpal tunnel. Follow up with ortho as planned, return to walk in or pcp office for any new or worsening symptoms. Orders: Referrals Orthopedics Referral G56.00 - Carpal tunnel syndrome, unspecified upper limb Coding Level of Care Code Est Pt Level 3 (50319) Diagnoses Hand paresthesia R20.2
== END 2023-07-01 09:02 | disposition home or self-care (01) ==
PROVIDERS: PCP Nurse Practitioner Family; Visit Provider Registered Nurse Emergency
DX: R20.2 Paresthesia of skin (principal)
CPT/HCPCS: 99213

== ENCOUNTER 2023-08-05 10:48 | Outpatient (AMB) | payer OTHER, SELFPAY ==
[2023-08-05 11:03] VITALS: BP 122/74; PULSE 88; O2SAT 98; BMI 36.4
--- NOTE | 2023-08-05 11:03 | MHC.PC.OV ---
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 Accompanied by: Self / Same As Patient Allergies aspirin Allergy (Mild, Verified 08/05/23 11:16) mild Medication List - Last Reconciled 08/05/23 by HAYDEN Yeboah albuterol sulfate 90 mcg/actuation 2 puffs inhalation Q6H PRN cetirizine (All Day Allergy (cetirizine)) 10 mg PO DAILY PRN 90 days levothyroxine 88 mcg PO DAILY Tobacco use date assessed: 08/05/23 Dental Screening Dental Screen Date: 08/05/23 Did you have a dental visit in the last 12 months?: Yes Did you have a dental problem in the last 6 months where you did not have access to dental care?: No Was dental information given to patient?: Patient has dentist HPI annual PE HPI Details Pt is here for a PE. Will order labs. Pt is currently unable to have a mammo as she is . Pt c/o increased fatigue. She reports that she is sleeping at night. Will check labs including iron studies. Pt is reporting increased wheezing and shortness of breath. She is using her inhaler frequently. Will send low-dose advair. Will follow up with pt, though she knows to contact me with further questions and concerns. PENDING SALE TO [facility] Medical History Asthma PCOS (polycystic ovarian syndrome) Surgical History No pertinent past surgical history Social History Housing: Apartment Patient Tobacco Use Status: Never used Tobacco e-Cigarette/Vaping Use: Never Used Second Hand Smoke Exposure: No service: No Current occupational status: employed Current occupation: [employer] Current occupational exposures/hazards: No Cognitive needs: No Hearing needs: No Vision needs: No Questionnaire PHQ-9 Over the last 2 weeks, how often have you been bothered by any of the following problems? 1. Little interest or pleasure in doing things: not at all 2. Feeling down, depressed, or hopeless: not at all 3. Trouble falling or staying asleep, or sleeping too much: not at all 4. Feeling tired or having little energy: not at all 5. Poor appetite or overeating: not at all 6. Feeling bad about yourself - or that you are a failure or have let yourself or your family down: not at all 7. Trouble concentrating on things, such as reading the newspaper or watching television: not at all 8. Moving or speaking so slowly that other people could have noticed. Or the opposite - being so fidgety or restless that you have been moving around a lot more than usual: not at all 9. Thoughts that you would be better off or of hurting yourself in some way: not at all Total score: 0 Depression Screening Interpretation: Negative Depression Screening Done: Yes 73705 - PHQ-9 Billing: Yes Source: Developed by Drs. Pedro Carmona, Alla Harvey, Adonis Ansari and colleagues, with an educational abraham from [employer]. Thrive Questionnaire Date Thrive assessed: 08/05/23 I am a: Patient What is your living situation today?: I have a steady place to live Within the past 12 months, did the food you bought not last and you didn't have the money to get more?: Never true Within the past 12 months, did you worry whether your food would run out before you got money to buy more?: Never true Do you have trouble paying for medicines?: No Do you have trouble getting transportation to medical appointments?: No Do you have trouble paying your heating and electricity bill?: No Do you have trouble taking care of your child, family member or friend?: No Do you have trouble with day-to-day activities such as bathing, preparing meals, shopping, managing finances, etc.?: No Are you currently unemployed and looking for a job?: No Are you interested in more education?: No Please select the resources that you would like help with: None Currently or been in a relationship where the following occur: no concerns reported THRIVE Score: 0 AUDIT C Alcohol Use Questionnaire (AUDIT-C) 1. How often do you have a drink containing alcohol?: Never 3. How often do you have six or more drinks on one occasion?: Never Total Score: 0 Score Reviewed/Action Taken: No MARSHALL-7 AMB Questionnaire MARSHALL-7 Date MARSHALL - 7 assessed: 08/05/23 Feeling nervous, anxious, or on edge: 0 = Not at all Not being able to stop or control worryin = Not at all Worrying too much about different things: 0 = Not at all Trouble relaxin = Not at all Being so restless that it is hard to sit still: 0 = Not at all Becoming easily annoyed or irritable: 0 = Not at all Feeling afraid as if something awful might happen: 0 = Not at all Total MARSHALL-7 score (0-4 normal; 5-9 mild; 10-14 moderate; 15-21 severe): 0 Source: Developed by Drs. Pedro Carmona, Alla Harvey, Adonis Ansari and colleagues, with an educational abraham from [employer]. MARSHALL-7 Assessment Billing MARSHALL-7 Assessment Tool: MARSHALL-7 Assessment 51803 Review of Systems Const Denies chills, Reports fatigue and Denies fever(s) Eyes Denies blurry vision ENT Denies vertigo, Denies dizziness and Denies sore throat Card Denies chest pain at rest, Denies chest pain with activity, Denies diaphoresis, Reports dyspnea and Reports dyspnea on exertion Resp Denies cough, Reports dyspnea, Reports dyspnea on exertion and Denies wheezing GI Denies abdominal pain, Denies melena, Denies hematochezia, Denies constipation, Denies diarrhea and Denies loose stools Denies hematuria Musc Denies numbness and Denies tingling Skin/Breast Denies lesions Neuro Denies vertigo, Denies dizziness, Denies numbness and Denies tingling Psych Denies anxiety, Denies depression, Denies homicidal ideation, Denies suicidal ideation and Denies other (substance abuse) Endo Reports fatigue Aller/Immun Denies wheezing Physical exam (Primary Care) Vital Signs: Last Vital Signs Pulse 88 08/05/23 11:03 BP 122/74 08/05/23 11:03 Pulse Ox 98 08/05/23 11:03 Oxygen Delivery Method Room Air 08/05/23 11:03 BMI result Body Mass Index 36.4 Tobacco/Smoking Status: Tobacco use Status Tobacco use date assessed 08/05/23 08/05/23 11:04 Patient Tobacco Use Status Never used Tobacco 08/05/23 11:04 e-Cigarette/Vaping Use Never Used 08/05/23 11:04 PHQ-9: PHQ-9 Score PHQ-9: Total score 0 08/05/23 11:13 Depression Screening Interpretation: Negative Thrive Assessment: Date of Thrive Assessment Date Thrive assessed 08/05/23 08/05/23 11:13 Currently or been in a relationship where the following occur: no concerns reported Const General: cooperative Nutritional Appearance: obese Orientation/consciousness: patient oriented x3 HENMT Head: Yes normal to inspection, Yes normocephalic and Yes atraumatic Ears: TM's normal bilaterally Eyes General: appearance normal, both eyes and all related structures Alignment and Position: alignment normal and position normal Neck Neck: Yes normal visual inspection and Yes no lymphadenopathy Thyroid: Thyroid normal Resp Effort & Inspection: normal respiratory effort Auscultation: clear to auscultation bilaterally Cardio Rate: regular rate Rhythm: regular rhythm Heart sounds: S1 normal heart sound present, S2 normal heart sound present and no murmurs GI Palpation (GI): Soft to palpation and nontender Auscultation: normal bowel sounds Skin Rashes: no rashes Neuro General: patient oriented x3, moves all extremities, no focal motor deficits and deep tendon reflexes 2+ bilaterally Romberg Test: Negative Psych Appearance: grossly normal Mental Status: mental status grossly normal Speech and movement: Normal speech and movement present Affect: normal affect Attitude: cooperative Thought process: Normal thought process present Thought content: Normal thought content present Insight: Good insight present (Psych) Judgement: Good judgement present (Psych) Assessment and Plan Assessment & Plan (1) Physical exam: Code(s): Z00.00 - Encounter for general adult medical examination without abnormal findings Plan: Labs ordered (2) Fatigue: Code(s): R53.83 - Other fatigue Plan: Labs ordered Plan The patient agreed to the use of a director medical writing for this encounter. Scribed for HAYDEN Centeno by Denisa Caballero director medical writing, on 08/05/2023 at 11:15 EST. Orders: Orders Comprehensive [place]. Panel Fast Today Z00.00 - Encounter for general adult medical examination without abnormal findings TSH reflex Free T4 Today Z00.00 - Encounter for general adult medical examination without abnormal findings Lipid Panel Today Z00.00 - Encounter for general adult medical examination without abnormal findings Complete Blood Count Auto Diff Today Z00.00 - Encounter for general adult medical examination without abnormal findings UA CC w/rflx Micro + Cult Today Z00.00 - Encounter for general adult medical examination without abnormal findings IRON PROFILE Today R53.83 - Other fatigue Ferritin Today R53.83 - Other fatigue Hemoglobin Electrophoresis Today R53.83 - Other fatigue Vitamin B12 and Folate Today R53.83 - Other fatigue Reticulocyte Count Today R53.83 - Other fatigue Medications: New fluticasone propion-salmeterol 100-50 mcg/dose (Advair Diskus) 1 inh inhalation BID 60 ea 2RF Coding Level of Care Code Est Pt Prev Care 40-64y(87913) Diagnoses Physical exam Z00.00 Fatigue R53.83 Additional Codes MARSHALL-7 Assessment Billing - MARSHALL-7 Assessment Tool: MARSHALL-7 Assessment 87007 ([id number])
== END 2023-08-05 11:32 | disposition home or self-care (01) ==
PROVIDERS: PCP Nurse Practitioner Family; Visit Provider Nurse Practitioner Family
DX: Z00.00 Encounter for general adult medical examination without abnormal findings (principal); R53.83 Other fatigue
CPT/HCPCS: 99396

== ENCOUNTER 2023-08-13 10:49 | Outpatient (AMB) | payer OTHER, SELFPAY ==
[2023-08-13 10:59] VITALS: BMI 36.4
--- NOTE | 2023-08-13 10:59 | A.OFFVIS_ITS ---
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 She says that her symptoms started while she was . They seemed to improve but then have gotten worse again.. Her symptoms are worse at night time and can occur with activities.. Denies recent injury. No EMG done. 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 She has numbness in the thumb, index, and middle fingers bilaterally. She says her numbness began initially when she was , and worsened after giving . However she says a few weeks ago her sensation began to improve and is now felt intermittent, but daily. She also complains of some hand pain accompanied by numbness. 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 Current occupational exposures/hazards: No Cognitive needs: No Hearing needs: No Vision needs: No Review of Systems Const All systems reviewed & are unremarkable except as noted in HPI and below Physical Exam Vital Signs: BMI result Body Mass Index 36.4 Const General: cooperative, healthy appearing and no acute distress Orientation/consciousness: patient oriented x3 HEENT Head: Yes normocephalic and Yes atraumatic Eyes EOM: EOMs intact bilaterally Resp Effort & Inspection: normal respiratory effort and able to speak in complete sentences Cardio Jugular venous distension: no JVD Skin General skin exam: turgor normal Rashes: no rashes Neuro General: patient oriented x3 Extrem Other: Evaluation of Bilateral Upper Extremity: The patient is alert, oriented, and in no acute distress Neuro: Median, Ulnar, Radial nerves motor and sensory intact and sensation is normal to the tips of all digits No thenar or intrinsic wasting Good APB muscle belly firing and good finger cross Vascular: Cap refill brisk ROM: She can make a fist and extend all her digits No locking or catching Skin: No lacerations or abrasions. General: No Ecchymosis. No Erythema or evidence of infection. Psych Appearance: grossly normal Affect: normal affect Attitude: cooperative Assessment & Plan Assessment & Plan (1) Numbness and tingling in both hands: Code(s): R20.0 - Anesthesia of skin; R20.2 - Paresthesia of skin Plan Assessment & Plan: 1. Bilateral hand numbness In the median nerve distribution Symptoms began while she was , and are now intermittent, but daily, worse at night I ordered a NCS to assess for peripheral nerve compression She will follow up when completed for review Scribed for Marilee Lehman MD by Aroldo Galicia, medical practice assistant, on 08/13/23 at 11:15 AM, EST. Orders: Orders NE nerve conduction velocity Today R20.0 - Anesthesia of skin, R20.2 - Paresthesia of skin Coding Level of Care Code New Pt Level 3 (06908) Diagnoses Numbness and tingling in both hands R20.0; R20.2
== END 2023-08-13 11:22 | disposition home or self-care (01) ==
PROVIDERS: PCP Nurse Practitioner Family; Visit Provider Orthopaedic Surgery
DX: R20.0 Anesthesia of skin (principal); R20.2 Paresthesia of skin
CPT/HCPCS: 99203

== ENCOUNTER → 2023-08-13 10:49 | Outpatient (BNVA) | payer OTHER, SELFPAY | PROVIDERS: PCP Nurse Practitioner Family; Visit Provider Orthopaedic Surgery | DX: G56.03 Carpal tunnel syndrome, bilateral upper limbs (principal) | CPT/HCPCS: 99202 ==

== ENCOUNTER 2023-08-23 10:47 | Outpatient (REF) | payer OTHER, SELFPAY ==
--- NOTE | 2023-08-23 10:52 | EMG_ITS ---
Chief complaint: 7-8 months of hand numbness and pain, started during but has continued after, left worse than right, admits that symptoms can be positional Reason for referral: Evaluate for Carpal Tunnel Syndrome Referred by: Dr. Lehman Procedure done: Bilateral upper extremities NCS/EMG Precautions and/or limitations: None The limb temperature was monitored continuously and remained between 32-36 degrees C during the performance of the NCS. Nerve Conduction Studies Anti Sensory Summary Table ?Stim Site NR Onset (ms) Norm Onset (ms) Peak (ms) Norm Peak (ms) O-P Amp (?V) Norm O-P Amp Site1 Site2 Delta-0 (ms) Dist (cm) Harman (m/s) Norm Harman (m/s) Left Median Anti Sensory (2nd Digit) Wrist ? 2.8 3.7 <3.6 44.2 >10 Wrist 2nd Digit 2.8 14.0 50 Right Median Anti Sensory (2nd Digit) Wrist ? 2.6 3.3 <3.6 60.9 >10 Wrist 2nd Digit 2.6 14.0 54 Left Radial Anti Sensory (Thumb) Forearm ? 1.7 2.1 <3.1 14.1 Forearm Thumb 1.7 0.0 Left Ulnar Anti Sensory (5th Digit) Wrist ? 2.3 2.8 <3.7 71.5 >15.0 Wrist 5th Digit 2.3 14.0 61 Right Ulnar Anti Sensory (5th Digit) Wrist ? 2.0 2.6 <3.7 30.2 >15.0 Wrist 5th Digit 2.0 14.0 70 Motor Summary Table ?Stim Site NR Onset (ms) Norm Onset (ms) O-P Amp (mV) Norm O-P Amp iAmp (mV) Amp (1st) (%) Site1 Site2 Delta-0 (ms) Dist (cm) Harman (m/s) Norm Harman (m/s) Left Median Motor (Abd Poll Brev) Wrist ? 4.1 <3.9 13.7 >4.5 17.4 100.0 Elbow Wrist 3.4 20.5 60 >45 Elbow ? 7.5 11.2 13.8 81.8 Right Median Motor (Abd Poll Brev) Wrist ? 3.4 <3.9 15.0 >4.5 18.3 100.0 Elbow Wrist 3.2 19.5 61 >45 Elbow ? 6.6 14.6 17.9 97.3 Left Ulnar Motor (Abd Dig Minimi) Wrist ? 2.6 <3.0 9.8 >5 13.8 100.0 B Elbow Wrist 2.6 16.5 63 >45 B Elbow ? 5.2 9.4 13.0 95.9 A Elbow B Elbow 1.1 10.0 91 >45 A Elbow ? 6.3 7.3 9.6 74.5 Right Ulnar Motor (Abd Dig Minimi) Wrist ? 2.6 <3.0 8.7 >5 11.0 100.0 B Elbow Wrist 2.7 17.0 63 >45 B Elbow ? 5.3 8.7 11.2 100.0 A Elbow B Elbow 1.2 10.0 83 >45 A Elbow ? 6.5 8.6 11.0 98.9 Comparison Summary Table ?Stim Site NR Peak (ms) Norm Peak (ms) P-T Amp (?V) Site1 Site2 Delta-P (ms) Norm Delta (ms) Right Median/Radial Dig I Comparison (Digit 1 - 10cm) Median ? 2.6 <2.9 188.3 Median Radial 0.3 Radial ? 2.3 <2.8 22.6 EMG ?Side Muscle Nerve Root Ins Act Fibs Psw Amp Dur Poly Recrt Int Pat Comment Right 1stDorInt Ulnar C8-T1 Nml Nml Nml Nml Nml 0 Nml Complete Right FlexCarRad Median C6-7 Nml Nml Nml Nml Nml 0 Nml Complete Right Biceps Musculocut C5-6 Nml Nml Nml Nml Nml 0 Nml Complete Right Triceps Radial C6-7-8 Nml Nml Nml Nml Nml 0 Nml Complete Right Deltoid Axillary C5-6 Nml Nml Nml Nml Nml 0 Nml Complete Left 1stDorInt Ulnar C8-T1 Nml Nml Nml Nml Nml 0 Nml Complete Left FlexCarRad Median C6-7 Nml Nml Nml Nml Nml 0 Nml Complete Left Biceps Musculocut C5-6 Nml Nml Nml Nml Nml 0 Nml Complete Left Triceps Radial C6-7-8 Nml Nml Nml Nml Nml 0 Nml Complete Left Deltoid Axillary C5-6 Nml Nml Nml Nml Nml 0 Nml Complete FINDINGS: Left median motor nerve showed prolonged distal latency, normal amplitude and normal conduction velocity. Left median sensory nerve showed prolonged peak latency. All other nerves tested were within normal. Concentric needle EMG was performed in selected muscles of the bilateral upper extremities. Study did not reveal signs of electric abnormalities as shown in the table below. IMPRESSION: 1. This is an abnormal study. 2. There is electrodiagnostic evidence for left moderate-severe median neuropathy at the wrist, consistent with carpal tunnel syndrome. 3. There is no electrodiagnostic evidence for ulnar neuropathy, brachial plexopathy, or cervical radiculopathy. 4. There is no sign of median neuropathy on right. Thank you for your kind referral. Neha Gonzalez MD, JUANCARLOS Board Certified, [place] Board [employer] and Rehabilitation (ABPMR) Board Certified, [place] Board of Electrodiagnostic Medicine (ABEM) CODIN 81219 x 2 MTDD
== END 2023-08-23 10:48 | disposition home or self-care (01) ==
LOC: HO.NEURO 10:47
PROVIDERS: PCP Nurse Practitioner Family; Visit Provider Orthopaedic Surgery
DX: R20.0 Anesthesia of skin (principal); R20.2 Paresthesia of skin
CPT/HCPCS: 95886; 95911

== ENCOUNTER → 2023-08-23 10:52 | Outpatient (BNV) | payer OTHER, SELFPAY | PROVIDERS: PCP Nurse Practitioner Family; Visit Provider Physical Medicine & Rehabilitation | DX: G56.03 Carpal tunnel syndrome, bilateral upper limbs (principal); G56.13 Other lesions of median nerve, bilateral upper limbs | CPT/HCPCS: 95886; 95911 ==

== ENCOUNTER 2023-10-21 14:21 | Outpatient (AMB) | payer OTHER, SELFPAY ==
--- NOTE | 2023-10-21 14:25 | MHC.PC.OV ---
Vital Signs 10/21/23 14:29 Height 5 ft 2 in Weight 187 lb BMI 34.2 BP 120/84 Blood Pressure Location Lt brachial Position Sitting Pulse 87 Pulse Source Pulse Oximeter Pulse Oximetry (%) 98 Oxygen Delivery Method Room Air Intake Visit Reasons: Podiatry referral Intake Note: Patient here for podiatry referral . Allergies aspirin Allergy (Mild, Verified 10/21/23 14:29) mild Medication List - Last Reconciled 10/21/23 by HAYDEN Yeboah Advair Diskus 100-50 mcg/dose (fluticasone propion-salmeterol) 1 inh inhalation BID NS cetirizine (All Day Allergy (cetirizine)) 10 mg PO DAILY PRN 90 days levothyroxine 88 mcg PO DAILY Ventolin HFA 90 mcg/actuation (albuterol sulfate) 2 puffs inhalation Q6H PRN NS Tobacco use date assessed: 08/05/23 Dental Screening Dental Screen Date: 08/05/23 HPI Podiatry referral HPI Details Pt c/o right foot pain (mostly to her heel). She reports that this is worse in the morning or after resting. ? plantar fasciitis. Will refer to PT and podiatry. Denies fever, chills, and dizziness. 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 82777 - PHQ-9 Billing: Patient declined-do not bill Source: Developed by Drs. Pedro Carmona, Alla Harvey, Adonis Ansari and colleagues, with an educational abraham from [employer]. Thrive Questionnaire Date Thrive assessed: 08/05/23 MARSHALL-7 AMB Questionnaire MARSHALL-7 Date MARSHALL - 7 assessed: 08/05/23 Source: Developed by Drs. Pedro Carmona, Alla Harvey, Adonis Ansari and colleagues, with an educational abraham from [employer]. MARSHALL-7 Assessment Billing MARSHALL-7 Assessment Tool: pt declined-do not bill Review of Systems Const Reports as per HPI Physical exam (Primary Care) Vital Signs: Last Vital Signs Pulse 87 10/21/23 14:29 BP 120/84 10/21/23 14:29 Pulse Ox 98 10/21/23 14:29 Oxygen Delivery Method Room Air 10/21/23 14:29 BMI result Body Mass Index 34.2 Tobacco/Smoking Status: Tobacco use Status Tobacco use date assessed 08/05/23 10/21/23 14:28 Patient Tobacco Use Status Never used Tobacco 10/21/23 14:28 e-Cigarette/Vaping Use Never Used 10/21/23 14:28 Thrive Assessment: Date of Thrive Assessment Date Thrive assessed 08/05/23 10/21/23 14:28 Const General: cooperative Nutritional Appearance: obese Orientation/consciousness: patient oriented x3 Resp Effort & Inspection: normal respiratory effort Auscultation: clear to auscultation bilaterally Cardio Rate: regular rate Rhythm: regular rhythm Heart sounds: S1 normal heart sound present and S2 normal heart sound present Neuro General: patient oriented x3 Extrem Other: some tenderness noted with dorsi flexion of toes and palpation of heel, + dorsalis pedis pulse Psych Appearance: grossly normal Mental Status: mental status grossly normal Speech and movement: Normal speech and movement present Affect: normal affect Attitude: cooperative Thought process: Normal thought process present Thought content: Normal thought content present Insight: Good insight present (Psych) Judgement: Good judgement present (Psych) Assessment and Plan Assessment & Plan (1) Plantar fasciitis: Code(s): M72.2 - Plantar fascial fibromatosis Plan: referred to PT and podiatry Plan The patient agreed to the use of a registered medical transcriptionist for this encounter. Scribed for HAYDEN Centeno by Denisa Caballero registered medical transcriptionist, on 10/21/2023 at 14:40 EST. Orders: Orders PT Evaluation and Treatment Today M72.2 - Plantar fascial fibromatosis Referrals Podiatry Referral M72.2 - Plantar fascial fibromatosis Coding Level of Care Code Est Pt Level 3 (09766) Diagnoses Plantar fasciitis M72.2
[2023-10-21 14:29] VITALS: BP 120/84; PULSE 87; O2SAT 98; BMI 34.2
== END 2023-10-21 16:05 | disposition home or self-care (01) ==
PROVIDERS: PCP Nurse Practitioner Family; Visit Provider Nurse Practitioner Family
DX: M72.2 Plantar fascial fibromatosis (principal)
CPT/HCPCS: 99213

== ENCOUNTER 2023-11-13 12:45 | Outpatient (AMB) | payer OTHER, SELFPAY ==
--- NOTE | 2023-11-13 12:49 | MHC.OFFVIS ---
Vital Signs 11/13/23 12:54 Height 5 ft 2 in Weight 187 lb BMI 34.2 Intake Visit Reasons: OV - B/L CTS - Discuss sx - EMG Done Intake Note: Christal is a 43 year old right hand dominant female who presents today for a follow up visit for her bilateral carpal tunnel syndrome. Patient reports her left hand is worse than her right. States a little improvement in her pain however she continues to have numbness on her left hand. Concerned of pain located in bilateral elbows. EMG done on 08/23/23. Allergies aspirin Allergy (Mild, Verified 11/13/23 13:09) mild HPI HPI OV - B/L CTS - Discuss sx - EMG Done: Details: Christal is a 43 year old right hand dominant woman who returns for a NCS review of her bilateral hand numbness. She has numbness in the thumb, index, and middle fingers bilaterally. L>R. She says her numbness began initially when she was , and worsened after giving . Her symptoms are now intermittent, but daily, worse at night. She denies any small finger numbness. Only occasionally on the right side. She also complains of bilateral forearm pain which she says has been present for a few months. She has a 9 month old daughter and is currently not working. 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 Current occupational exposures/hazards: No Cognitive needs: No Hearing needs: No Vision needs: No Review of Systems Const All systems reviewed & are unremarkable except as noted in HPI and below Physical Exam Vital Signs: BMI result Body Mass Index 34.2 Const General: no acute distress and alert Orientation/consciousness: patient oriented x3 Neuro General: patient oriented x3 Extrem Other: Evaluation of Bilateral Upper Extremity: The patient is alert, oriented, and in no acute distress Neuro: Median, Ulnar, Radial nerves motor and sensory intact and sensation is normal to the tips of all digits No thenar or intrinsic wasting Good APB muscle belly firing and good finger cross Vascular: Cap refill brisk ROM: She can make a fist and extend all her digits No locking or catching Mild tenderness over the extensor origin just distal to the lateral epicondyle bilaterally Nerve Conduction Study: IMPRESSION: 1. This is an abnormal study. 2. There is electrodiagnostic evidence for left moderate-severe median neuropathy at the wrist, consistent with carpal tunnel syndrome. 3. There is no electrodiagnostic evidence for ulnar neuropathy, brachial plexopathy, or cervical radiculopathy. 4. There is no sign of median neuropathy on right. Neha Gonzalez MD, JUANCARLOS 08/23/23 Psych Appearance: grossly normal Affect: normal affect Attitude: cooperative Assessment & Plan Assessment & Plan (1) Lateral epicondylitis of both elbows: Code(s): M77.11 - Lateral epicondylitis, right elbow; M77.12 - Lateral epicondylitis, left elbow Category: Medical (2) Carpal tunnel syndrome of left wrist: Code(s): G56.02 - Carpal tunnel syndrome, left upper limb Category: Medical Plan Assessment & Plan: 1. Left carpal tunnel syndrome, moderate-severe Symptoms intermittent, but daily, worse at night I educated her about this condition I discussed operative and non-operative treatment options The patient would like to proceed with surgery The risks and benefits of operative treatment were discussed with the patient and the patient wishes to proceed with surgery. These risks include, but are not limited to risk of damage to blood vessels, nerves, tendons, infection, recurrence, incomplete relief of preoperative symptoms, persistent pain, possible need for further surgery and the risks associated with regional blocks and anesthesia. The plan is to take the patient to the operating room sometime in the next few weeks for the following procedures: 1. Left carpal tunnel release, under local All of the preoperative paperwork including the consent was reviewed today. All the patient's questions were answered. The patient understands that they will be contacted by our oral surgery physician soon to schedule this procedure She denies Diabetes, blood thinners, heart, lung, kidney issues She has asthma 2. Bilateral lateral epicondylitis, mild I educated her about this condition I discussed non-operative treatment options I ordered OT hand therapy to work on stretching & normalizing function I explained that this is likely related to caring for her 9 month old daughter and we discussed trying to identify activities that may be causing this discomfort an aggravating the condition. One possibility is getting the car seats in and out of the cars, etc. Scribed for Marilee Lehman MD by Aroldo Galicia, medical office specialist, on 11/13/23 at 1:55 PM, EST. Orders: Orders OT Evaluation and Treatment Today G56.02 - Carpal tunnel syndrome, left upper limb, M77.11 - Lateral epicondylitis, right elbow, M77.12 - Lateral epicondylitis, left elbow Coding Level of Care Code Est Pt Level 4 (07983) Diagnoses Lateral epicondylitis of both elbows M77.11; M77.12 Carpal tunnel syndrome of left wrist G56.02
[2023-11-13 12:54] VITALS: BMI 34.2
== END 2023-11-13 14:22 | disposition home or self-care (01) ==
PROVIDERS: PCP Nurse Practitioner Family; Visit Provider Orthopaedic Surgery
DX: M77.11 Lateral epicondylitis, right elbow (principal); M77.12 Lateral epicondylitis, left elbow; G56.02 Carpal tunnel syndrome, left upper limb
CPT/HCPCS: 99214

== ENCOUNTER → 2023-11-13 12:45 | Outpatient (BNVA) | payer OTHER, SELFPAY | PROVIDERS: PCP Nurse Practitioner Family; Visit Provider Orthopaedic Surgery | DX: M77.11 Lateral epicondylitis, right elbow (principal); M77.12 Lateral epicondylitis, left elbow; G56.02 Carpal tunnel syndrome, left upper limb | CPT/HCPCS: 99212 ==

== ENCOUNTER 2023-12-10 09:12 | Outpatient (REF) | payer OTHER, SELFPAY ==
[2023-12-10 10:09] LABS: MANUAL DIFF FLAG NO
[2023-12-10 10:17] LABS: Basophils Percent Auto 0.6 % (0-2); Eosinophils Absolute Auto 0.2 X10*3/uL (0.0-0.4); Eosinophils Percent Auto 2.1 % (0-4); Hematocrit 38.4 % (37.0-47.0); Imm Gran Abs Auto 0.01 X10*3/uL (0.00-0.03); Imm Gran Pct Auto 0.1 % (0.0-0.4); Immature Retic Fraction 17.3 % (3.0-15.9); Lymphocytes Absolute Auto 1.4 X10*3/uL (1.2-4.9); Lymphocytes Percent Auto 20.1 % (20-40); Mean Corpuscular HGB Conc 33.9 g/dl (31.0-35.0); Mean Corpuscular Hemoglobin 30.2 pg (27.0-33.0); Mean Corpuscular Volume 89.1 fL (80.0-98.0); Mean Platelet Volume 10.8 fL (9.4-12.3); Monocytes Absolute Auto 0.5 X10*3/uL (0.1-1.2); Monocytes Percent Auto 6.3 % (2-11); Neutrophils Percent Auto 70.8 % (45-73); Platelet Count 286 X10*3/uL (160-400); Red Blood Count 4.31 X10*6/uL (4.20-5.50); Red Cell Distribution Width 12.2 % (11.0-16.0); Retic HGB Equivalent 34.9 pg (30.0-35.0); Reticulocyte Percent 1.9 % (0.5-1.8); Reticulocytes Absolute 0.083 X10*6/uL (0.026-0.095); White Blood Count 7.1 X10*3/uL (4.8-10.8)
[2023-12-10 10:18] LABS: Appearance Urine Clear; Color Urine Yellow; Glucose Urine UA Negative (Negative); Leukocyte Esterase Urine Trace (Negative); Nitrite Urine Negative (Negative); UMIC TRIGGER UACC YES; Urine Blood Negative (Negative); Urine Ketones Negative (Negative); Urine Protein Negative (Neg-Trace)
[2023-12-10 10:21] LABS: Bacteria Urine Trace (None Seen); Hyaline Casts Urine 0-2 /LPF (0-2); RBC Urine 0-2 /HPF (0-2); WBC Urine 0-5 /HPF (0-5)
[2023-12-10 10:58] LABS: Alanine Aminotransferase 12 U/L (0-31); Alkaline Phosphatase 113 U/L (39-117); Anion Gap 15 (12-20); Aspartate Amino Transferase 13 U/L (5-31); Bilirubin Total 0.3 mg/dL (0.0-1.0); Blood Urea Nitrogen 10 mg/dL (9-16); Calcium 9.6 mg/dL (8.4-10.2); Carbon Dioxide 23 mmol/L (22-29); Chloride 104 mmol/L (96-108); Cholesterol 220 mg/dL (<200); Estimated Glomerular Filt Rate > 60; Glucose Fasting 92 mg/dL (60-99); HDL Cholesterol 70 mg/dL (>40); Iron 64 mcg/dL (30-160); LDL Cholesterol Calculated 131 mg/dL (<100); Percent Iron Saturation 20 % (15-50); Sodium 138 mmol/L (135-145); Total Iron Binding Capacity 321 mcg/dL (228-428); Triglycerides 95 mg/dL (<150); Unsaturated Iron Binding 257 ug/dL
[2023-12-10 11:26] LABS: Ferritin 55 ng/mL (10-250); TSH reflex Free T4 2.47 uIU/mL (0.32-4.0)
[2023-12-10 11:28] LABS: Folate 14.6 ng/mL (> or = 4.0); Vitamin B12 843 pg/mL (200-900)
[2023-12-12 13:53] LABS: Hematocrit 40.2 % (35.0-45.0); Hemoglobin 13.4 g/dL (11.7-15.5); MCH 30.1 pg (27.0-33.0); MCV 90.3 fL (80.0-100.0); RBC 4.45 Million/uL (3.80-5.10); RDW 12.6 % (11.0-15.0)
== END 2023-12-10 09:13 | disposition home or self-care (01) ==
LOC: HO.HMGCLDS 09:12
PROVIDERS: PCP Nurse Practitioner Family; Visit Provider Nurse Practitioner Family
DX: Z00.00 Encounter for general adult medical examination without abnormal findings (principal); R53.83 Other fatigue
CPT/HCPCS: 36415; 80053; 80061; 81001; 82607; 82728; 82746; 83020; 83540; 84443; 85014; 85018; 85025; 85041; 85045

== ENCOUNTER 2023-12-18 08:32 | Outpatient (AMB) | payer OTHER, SELFPAY ==
--- NOTE | 2023-12-18 08:34 | A.OFFPC_ITS ---
Vital Signs 12/18/23 08:39 Weight 197 lb BP 114/72 Blood Pressure Location Rt brachial Position Sitting Pulse 82 Pulse Source Pulse Oximeter Pulse Oximetry (%) 98 Oxygen Delivery Method Room Air Intake Visit Reasons: 4 month follow up Intake Note: Patient here to follow up after podiatry visit, she states she has been trying acupuncture which has been helping Allergies aspirin Allergy (Mild, Verified 12/18/23 08:40) mild Medication List - Last Reconciled 12/18/23 by HAYDEN Yeboah Advair Diskus 100-50 mcg/dose (fluticasone propion-salmeterol) 1 inh inhalation BID NS cetirizine (All Day Allergy (cetirizine)) 10 mg PO DAILY PRN 90 days levothyroxine 88 mcg PO DAILY Ventolin HFA 90 mcg/actuation (albuterol sulfate) 2 puffs inhalation Q6H PRN NS Tobacco use date assessed: 08/05/23 Dental Screening Dental Screen Date: 08/05/23 HPI 4 month follow up HPI Details Pt has a hx of plantar fasciitis. She has had cortisone injections which did not help. Pt is going to acupuncture which she reports is helpful. Pt has a family hx of colon cancer (1 aunt, 2 uncles, and a cousin in her 20s). Denies blood in stool and change in bowel habits. Will refer to GI. Pt has a hx of hypothyroid. Last TSH wasn WNL. Will continue current dose of levothyroxine. Denies constipation, hair loss, and excessive fatigue. Dyslipidemia: Will continue to monitor. Recommended dietary changes. 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 1. Little interest or pleasure in doing things: not at all 2. Feeling down, depressed, or hopeless: not at all 3. Trouble falling or staying asleep, or sleeping too much: not at all 4. Feeling tired or having little energy: not at all 5. Poor appetite or overeating: not at all 6. Feeling bad about yourself - or that you are a failure or have let yourself or your family down: not at all 7. Trouble concentrating on things, such as reading the newspaper or watching television: not at all 8. Moving or speaking so slowly that other people could have noticed. Or the opposite - being so fidgety or restless that you have been moving around a lot more than usual: not at all 9. Thoughts that you would be better off or of hurting yourself in some way: not at all Total score: 0 Depression Screening Interpretation: Negative Depression Screening Done: Yes 40789 - PHQ-9 Billing: Yes Source: Developed by Drs. Pedro Carmona, Alla Harvey, Adonis Ansari and colleagues, with an educational abraham from [employer]. Thrive Questionnaire Date Thrive assessed: 12/11/23 I am a: Patient What is your living situation today?: I have a steady place to live Within the past 12 months, did the food you bought not last and you didn't have the money to get more?: Never true Within the past 12 months, did you worry whether your food would run out before you got money to buy more?: Never true Do you have trouble paying for medicines?: No Do you have trouble getting transportation to medical appointments?: No Do you have trouble paying your heating and electricity bill?: No Do you have trouble taking care of your child, family member or friend?: No Do you have trouble with day-to-day activities such as bathing, preparing meals, shopping, managing finances, etc.?: No Are you currently unemployed and looking for a job?: No Are you interested in more education?: No Please select the resources that you would like help with: Housing/Jail Currently or been in a relationship where the following occur: No concerns reported THRIVE Score: 0 AUDIT C Alcohol Use Questionnaire (AUDIT-C) 1. How often do you have a drink containing alcohol?: Never 2. How many drinks containing alcohol do you have on a typical day when you are drinking?: 1 or 2 3. How often do you have six or more drinks on one occasion?: Never Total Score: 0 MARSHALL-7 AMB Questionnaire MARSHALL-7 Date MARSHALL - 7 assessed: 08/05/23 Feeling nervous, anxious, or on edge: 0 = Not at all Not being able to stop or control worryin = Not at all Worrying too much about different things: 0 = Not at all Trouble relaxin = Not at all Being so restless that it is hard to sit still: 0 = Not at all Becoming easily annoyed or irritable: 0 = Not at all Feeling afraid as if something awful might happen: 0 = Not at all Total MARSHALL-7 score (0-4 normal; 5-9 mild; 10-14 moderate; 15-21 severe): 0 Source: Developed by Drs. Pedro Carmona, Alla Harvey, Adonis Ansari and colleagues, with an educational abraham from [employer]. MARSHALL-7 Assessment Billing MARSHALL-7 Assessment Tool: MARSHALL-7 Assessment 12523 Review of Systems Const Reports as per HPI Physical exam (Primary Care) Vital Signs: Last Vital Signs Pulse 82 12/18/23 08:39 BP 114/72 12/18/23 08:39 Pulse Ox 98 12/18/23 08:39 Oxygen Delivery Method Room Air 12/18/23 08:39 Tobacco/Smoking Status: Tobacco use Status Tobacco use date assessed 08/05/23 12/18/23 08:36 Patient Tobacco Use Status Never used Tobacco 12/18/23 08:36 e-Cigarette/Vaping Use Never Used 12/18/23 08:36 PHQ-9: PHQ-9 Score PHQ-9: Total score 0 12/18/23 08:52 Depression Screening Interpretation: Negative Thrive Assessment: Date of Thrive Assessment Date Thrive assessed 12/11/23 12/18/23 08:36 Currently or been in a relationship where the following occur: No concerns reported Const General: cooperative Orientation/consciousness: patient oriented x3 Neuro General: patient oriented x3 Psych Appearance: grossly normal Mental Status: mental status grossly normal Speech and movement: Normal speech and movement present Affect: normal affect Attitude: cooperative Thought process: Normal thought process present Thought content: Normal thought content present Insight: Good insight present (Psych) Judgement: Good judgement present (Psych) Assessment and Plan Assessment & Plan (1) Family hx of colon cancer: Code(s): Z80.0 - Family history of malignant neoplasm of digestive organs Plan: Referred to GI (2) Dyslipidemia: Code(s): E78.5 - Hyperlipidemia, unspecified Plan: Recommended dietary changes (3) Hypothyroidism: Code(s): E03.9 - Hypothyroidism, unspecified Plan: Will continue current dose of levothyroxine Plan The patient agreed to the use of a medical donation professional for this encounter. Scribed for HAYDEN Centeno by Denisa Caballero medical donation professional, on 12/18/2023 at 08:55 EST. Orders: Orders Complete Blood Count Auto Diff 5 Months E03.9 - Hypothyroidism, unspecified, E78.5 - Hyperlipidemia, unspecified TSH reflex Free T4 5 Months E03.9 - Hypothyroidism, unspecified, E78.5 - Hyperlipidemia, unspecified Comprehensive Hurt. Panel Fast 5 Months E03.9 - Hypothyroidism, unspecified, E78.5 - Hyperlipidemia, unspecified Lipid Panel 5 Months E03.9 - Hypothyroidism, unspecified, E78.5 - Hyperlipidemia, unspecified Referrals Gastroenterology Referral Z80.0 - Family history of malignant neoplasm of digestive organs Coding Level of Care Code Est Pt Level 3 (28475) Diagnoses Family hx of colon cancer Z80.0 Dyslipidemia E78.5 Hypothyroidism E03.9 Additional Codes MARSHALL-7 Assessment Billing - MARSHALL-7 Assessment Tool: MARSHALL-7 Assessment 54682 ([id number])
[2023-12-18 08:39] VITALS: BP 114/72; PULSE 82; O2SAT 98
== END 2023-12-18 10:08 | disposition home or self-care (01) ==
PROVIDERS: PCP Nurse Practitioner Family; Visit Provider Nurse Practitioner Family
DX: E78.5 Hyperlipidemia, unspecified (principal); Z80.0 Family history of malignant neoplasm of digestive organs; E03.9 Hypothyroidism, unspecified
CPT/HCPCS: 99213

== ENCOUNTER → 2024-01-21 11:32 | Outpatient (BNVA) | payer OTHER, SELFPAY | PROVIDERS: PCP Nurse Practitioner Family; Visit Provider Physician Assistant Surgical ==

== ENCOUNTER 2024-02-14 07:56 | Outpatient (AMB) | payer OTHER, SELFPAY ==
--- NOTE | 2024-02-14 13:14 | A.OFFVIS_ITS ---
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 Allergies aspirin Allergy (Mild, Verified 02/14/24 13:14) mild Medication List - Last Reconciled 02/14/24 by Shade Arauz MD Advair Diskus 100-50 mcg/dose (fluticasone propion-salmeterol) 1 inh inhalation BID NS [biotin PO] cetirizine (All Day Allergy (cetirizine)) 10 mg PO DAILY PRN 90 days levothyroxine 88 mcg PO DAILY [prenatals PO] Ventolin HFA 90 mcg/actuation (albuterol sulfate) 2 puffs inhalation Q6H PRN NS HPI 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: Details: Start time: 1pm, End time: 1.45pm ?I spent 40 minutes speaking with the patient on the phone plus an additional 5 minutes reviewing and updating records for a total of 45 minutes HPI Comments Details: Previous weight loss efforts: none Wakes up: 9am, Sleeps: 9pm Breakfast: 9.30am (eggs) Lunch: skips Dinner: 4pm (rice, meat) Snacks: 3-4pm (fruit) Exercise: none Fluids: Coffee: 1 cup/d (milk and sugar), tea: none, soda: rarely, juice: orange juice daily, ETOH: none PFSH Medical History (Updated 02/14/24 @ 13:30 by Shade Arauz MD) Obesity Asthma PCOS (polycystic ovarian syndrome) Surgical History (Updated 01/21/24 @ 12:29 by Mary Malagon CMA) Hx of laparoscopy Hx of section Social History Housing: Apartment Patient Tobacco Use Status: Never used Tobacco e-Cigarette/Vaping Use: Never Used Second Hand Smoke Exposure: No service: No Current occupational status: unemployed 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 Current occupational exposures/hazards: No Cognitive needs: No Hearing needs: No Vision needs: No Telehealth Telehealth Telehealth Platform: Telephone Location of provider rendering services: practice address Location of patient: address on file Patient Identification confirmed using: Name, : Yes Telehealth method: voice only Patient verbally consented to treatment: Yes Patient verbally consented to billing insurance company: Yes Patient informed of any privacy concerns related to visit: Yes Minutes spent on Phone/Video with Pt.: 45 Assessment & Plan Assessment & Plan (1) Obesity: Code(s): E66.9 - Obesity, unspecified Category: Medical Qualifiers: Obesity type: due to excess calories Obesity classification: adult class 2 (BMI 35 - 39.9) Serious obesity comorbidity presence: with serious comorbidity Body mass index: BMI 35.0-35.9 Qualified Code(s): E66.01 - Morbid (severe) obesity due to excess calories; Z68.35 - Body mass index [BMI] 35.0- 35.9, adult Plan: 1.? Plan for lap sleeve gastrectomy. If diaphragmatic or ventral hernias are present at time of surgery, these will be repaired laparoscopically as well. Risks and complications include possible conversion to an open procedure, anastomotic leak, bleeding requiring transfusion, small bowel obstruction, , DVT and pulmonary embolism, cardiac, or pulmonary complications, as termite control technician complications such as anastomotic ulcer, insufficient weight loss and vitamin deficiencies. I emphasized the importance of close follow-up, adherence to instructions and good communication. 2. You will receive a link of our software kraen to generate an individualized nutritional and exercise plan specific for you. Please send me a screenshot of the plans you will generate Meal to include lean meat (beef, fish, pork, turkey, chicken), or norwegian yogurt, or egg whites, or beans with a salad with olive oil and fruits (berries, pears, apples, kiwi). Avoid salt, breads, potatoes, rice, pasta, desserts. ?3. If you choose shakes, each shake would be drunk slowly, like coffee in a period of 2 hours. ?4. If you choose bars, cut each bar in 4 pieces and eat each piece in 30min ?to make each bar last 2 hours. ?5. I emphasized the importance of measuring accurately the food portion and measure it when serving the food in plate ?6. The meal portions include a specific number of forks of meat and salad. You always eat the meat portion but you can replace up to half of salad/vegetables portion with rice, potatoes or pasta, or a fruit ?if you like. The less you do it the better weight loss will be. ?7. One full-size fork is what it can be scooped on the fork without falling aside and not what can be bit with the fork. Use regular forks like those you find in a typical restaurant. ?8.? Please send me weight measurements as soon as possible and then once a week. Always include your diet and exercise plan. 9. The best choice would be to purchase a stationary bike, elliptical or treadmill at home that can track calories. Let me know if you do so I can give you an exercise plan. ?10.?It is important of avoiding and for at least 18 months postoperatively and has been discussed at the infosession. ?11. Goal is to lose at least 1.5-2lbs per week ?12. Goal to lose 10% of your weight before surgery, which is about 19lbs. Ultimate weight goal: 174lbs before surgery 13. Please follow the diet plan exactly without any change. If you don't like something about the plan or you feel hungry you need to communicate with me so I can help you revise the plan. You should not change the plan yourself. 14. To be scheduled for EGD due to history of GERD. The possibility of biopsies was discussed. Patient needs to avoid use of NSAIDs and aspirin for 1 week prior to EGD. Risks of perforation and bleeding was discussed with the patient. This will be an outpatient procedure with IV sedation. Orders: Orders Insulin Today E03.9 - Hypothyroidism, unspecified, E66.9 - Obesity, unspecified, E78.5 - Hyperlipidemia, unspecified, J45.909 - Unspecified asthma, uncomplicated, Z68.35 - Body mass index [BMI] 35.0-35.9, adult Hemoglobin A1c Today E03.9 - Hypothyroidism, unspecified, E66.9 - Obesity, unspecified, E78.5 - Hyperlipidemia, unspecified, J45.909 - Unspecified asthma, uncomplicated, Z68.35 - Body mass index [BMI] 35.0-35.9, adult H Pylori Breath Test Today E03.9 - Hypothyroidism, unspecified, E66.9 - Obesity, unspecified, E78.5 - Hyperlipidemia, unspecified, J45.909 - Unspecified asthma, uncomplicated, Z68.35 - Body mass index [BMI] 35.0-35.9, adult Complete Blood Count Auto Diff Today E03.9 - Hypothyroidism, unspecified, E66.9 - Obesity, unspecified, E78.5 - Hyperlipidemia, unspecified, J45.909 - Unspecified asthma, uncomplicated, Z68.35 - Body mass index [BMI] 35.0-35.9, adult Lipid Panel Today E03.9 - Hypothyroidism, unspecified, E66.9 - Obesity, unspecified, E78.5 - Hyperlipidemia, unspecified, J45.909 - Unspecified asthma, uncomplicated, Z68.35 - Body mass index [BMI] 35.0-35.9, adult Comprehensive Met. Panel Today E03.9 - Hypothyroidism, unspecified, E66.9 - Obesity, unspecified, E78.5 - Hyperlipidemia, unspecified, J45.909 - Unspecified asthma, uncomplicated, Z68.35 - Body mass index [BMI] 35.0-35.9, adult C Reactive Protein Today E03.9 - Hypothyroidism, unspecified, E66.9 - Obesity, unspecified, E78.5 - Hyperlipidemia, unspecified, J45.909 - Unspecified asthma, uncomplicated, Z68.35 - Body mass index [BMI] 35.0-35.9, adult Vitamin B1 Today E03.9 - Hypothyroidism, unspecified, E66.9 - Obesity, unspecified, E78.5 - Hyperlipidemia, unspecified, J45.909 - Unspecified asthma, uncomplicated, Z68.35 - Body mass index [BMI] 35.0-35.9, adult Vitamin A Today E03.9 - Hypothyroidism, unspecified, E66.9 - Obesity, unspecified, E78.5 - Hyperlipidemia, unspecified, J45.909 - Unspecified asthma, uncomplicated, Z68.35 - Body mass index [BMI] 35.0-35.9, adult TSH reflex Free T4 Today E03.9 - Hypothyroidism, unspecified, E66.9 - Obesity, unspecified, E78.5 - Hyperlipidemia, unspecified, J45.909 - Unspecified asthma, uncomplicated, Z68.35 - Body mass index [BMI] 35.0-35.9, adult Vitamin D 25-OH Total Today E03.9 - Hypothyroidism, unspecified, E66.9 - Obesity, unspecified, E78.5 - Hyperlipidemia, unspecified, J45.909 - Unspecified asthma, uncomplicated, Z68.35 - Body mass index [BMI] 35.0-35.9, adult XR chest 2V Today E03.9 - Hypothyroidism, unspecified, E66.9 - Obesity, unspecified, E78.5 - Hyperlipidemia, unspecified, J45.909 - Unspecified asthma, uncomplicated, Z68.35 - Body mass index [BMI] 35.0-35.9, adult FL upper GI w air Today E03.9 - Hypothyroidism, unspecified, E66.9 - Obesity, unspecified, E78.5 - Hyperlipidemia, unspecified, J45.909 - Unspecified asthma, uncomplicated, Z68.35 - Body mass index [BMI] 35.0-35.9, adult IRON PROFILE Today E03.9 - Hypothyroidism, unspecified, E66.9 - Obesity, unspecified, E78.5 - Hyperlipidemia, unspecified, J45.909 - Unspecified asthma, uncomplicated, Z68.35 - Body mass index [BMI] 35.0-35.9, adult Vitamin B12 and Folate Today E03.9 - Hypothyroidism, unspecified, E66.9 - Obesity, unspecified, E78.5 - Hyperlipidemia, unspecified, J45.909 - Unspecified asthma, uncomplicated, Z68.35 - Body mass index [BMI] 35.0-35.9, adult Zinc Today E03.9 - Hypothyroidism, unspecified, E66.9 - Obesity, unspecified, E78.5 - Hyperlipidemia, unspecified, J45.909 - Unspecified asthma, uncomplicated, Z68.35 - Body mass index [BMI] 35.0-35.9, adult Ferritin Today E03.9 - Hypothyroidism, unspecified, E66.9 - Obesity, unspecified, E78.5 - Hyperlipidemia, unspecified, J45.909 - Unspecified asthma, uncomplicated, Z68.35 - Body mass index [BMI] 35.0-35.9, adult US abdomen comp w elastography Today E03.9 - Hypothyroidism, unspecified, E66.9 - Obesity, unspecified, E78.5 - Hyperlipidemia, unspecified, J45.909 - Unspecified asthma, uncomplicated, Z68.35 - Body mass index [BMI] 35.0-35.9, adult ECG 12 lead EKG Today E03.9 - Hypothyroidism, unspecified, E66.9 - Obesity, unspecified, E78.5 - Hyperlipidemia, unspecified, J45.909 - Unspecified asthma, uncomplicated, Z68.35 - Body mass index [BMI] 35.0-35.9, adult Referrals Behavioral Health Referral E03.9 - Hypothyroidism, unspecified, E66.9 - Obesity, unspecified, E78.5 - Hyperlipidemia, unspecified, J45.909 - Unspecified asthma, uncomplicated, Z68.35 - Body mass index [BMI] 35.0-35.9, adult Nutrition/Dietitian Referral E03.9 - Hypothyroidism, unspecified, E66.9 - Obesity, unspecified, E78.5 - Hyperlipidemia, unspecified, J45.909 - Unspecified asthma, uncomplicated, Z68.35 - Body mass index [BMI] 35.0-35.9, adult
[2024-02-14 13:22] VITALS: BMI 35.2
== END 2024-02-14 13:46 | disposition home or self-care (01) ==
LOC: HO.HBS 07:56
PROVIDERS: PCP Nurse Practitioner Family; Visit Provider Surgery
DX: E66.01 Morbid (severe) obesity due to excess calories (principal); Z68.35 Body mass index [BMI] 35.0-35.9, adult
CPT/HCPCS: 99204

== ENCOUNTER → 2024-02-14 07:56 | Outpatient (BNVA) | payer OTHER, SELFPAY | PROVIDERS: PCP Nurse Practitioner Family; Visit Provider Surgery ==

== ENCOUNTER 2024-02-24 09:39 | Outpatient (REF) | payer OTHER, SELFPAY ==
--- NOTE | 2024-02-24 09:48 | ECG_ITS ---
Test Reason : obs Blood Pressure : / mmHG Vent. Rate : 073 BPM Atrial Rate : 073 BPM P-R Int : 150 ms QRS Dur : 098 ms QT Int : 396 ms P-R-T Axes : 040 051 036 degrees QTc Int : 436 ms Normal sinus rhythm Normal ECG No previous ECGs available Referred By: Shade Arauz Electronically Signed By:ENMA SPRAGUE
[2024-02-24 10:04] LABS: MANUAL DIFF FLAG NO
[2024-02-24 10:13] LABS: Basophils Absolute Auto 0.1 X10*3/uL (0.0-0.2); Basophils Percent Auto 0.7 % (0-2); Eosinophils Absolute Auto 0.2 X10*3/uL (0.0-0.4); Eosinophils Percent Auto 2.8 % (0-4); Hematocrit 39.1 % (37.0-47.0); Hemoglobin 13.5 g/dl (12.0-16.0); Imm Gran Abs Auto 0.03 X10*3/uL (0.00-0.03); Imm Gran Pct Auto 0.4 % (0.0-0.4); Lymphocytes Absolute Auto 1.3 X10*3/uL (1.2-4.9); Lymphocytes Percent Auto 18.5 % (20-40); Mean Corpuscular HGB Conc 34.5 g/dl (31.0-35.0); Mean Corpuscular Hemoglobin 30.4 pg (27.0-33.0); Mean Corpuscular Volume 88.1 fL (80.0-98.0); Mean Platelet Volume 10.3 fL (9.4-12.3); Monocytes Absolute Auto 0.4 X10*3/uL (0.1-1.2); Monocytes Percent Auto 5.5 % (2-11); Neutrophils Absolute Auto 5.1 x10*3/uL (2.0-8.3); Neutrophils Percent Auto 72.1 % (45-73); Platelet Count 278 X10*3/uL (160-400); Red Blood Count 4.44 X10*6/uL (4.20-5.50); Red Cell Distribution Width 11.7 % (11.0-16.0); White Blood Count 7.1 X10*3/uL (4.8-10.8)
[2024-02-24 10:54] LABS: Estimated Average Glucose 105 mg/dL; Hemoglobin A1c % 5.3 % (<6.0); Total Hemoglobin (HGBA1C) 3397.4304 umol/L
[2024-02-24 11:14] LABS: Alanine Aminotransferase 15 U/L (0-31); Albumin Level 4.2 g/dL (3.5-5.0); Alkaline Phosphatase 105 U/L (39-117); Anion Gap 13 (12-20); Aspartate Amino Transferase 19 U/L (5-31); Bilirubin Total 0.3 mg/dL (0.0-1.0); Blood Urea Nitrogen 10 mg/dL (9-16); C Reactive Protein 0.57 mg/dL (< or = 0.50); Calcium 9.5 mg/dL (8.4-10.2); Carbon Dioxide 25 mmol/L (22-29); Chloride 103 mmol/L (96-108); Cholesterol 228 mg/dL (<200); Estimated Glomerular Filt Rate > 60; Glucose Random 93 mg/dL (60-115); HDL Cholesterol 63 mg/dL (>40); Iron 68 mcg/dL (30-160); LDL Cholesterol Calculated 148 mg/dL (<100); Percent Iron Saturation 21 % (15-50); Potassium 3.8 mmol/L (3.3-5.1); Sodium 137 mmol/L (135-145); Total Iron Binding Capacity 318 mcg/dL (228-428); Total Protein 7.4 g/dL (6.5-8.0); Triglycerides 85 mg/dL (<150); Unsaturated Iron Binding 250 ug/dL
[2024-02-24 11:22] LABS: Ferritin 120 ng/mL (10-250); Insulin 6 uU/mL (2-29); TSH reflex Free T4 1.82 uIU/mL (0.32-4.0); Vitamin D 25-OH Total 36.2 ng/mL (>30)
[2024-02-24 11:30] LABS: Folate 15.7 ng/mL (> or = 4.0); Vitamin B12 983 pg/mL (200-900)
[2024-02-28 00:39] LABS: Vitamin A 59 mcg/dL (38-98)
[2024-02-28 11:53] LABS: Zinc 72 mcg/dL (60-130)
[2024-03-02 04:39] LABS: Vitamin B1 18 nmol/L (8-30)
== END 2024-02-24 09:40 | disposition home or self-care (01) ==
LOC: HO.LAB 09:39
PROVIDERS: PCP Nurse Practitioner Family; Visit Provider Surgery
DX: E66.9 Obesity, unspecified (principal); Z68.35 Body mass index [BMI] 35.0-35.9, adult; J45.909 Unspecified asthma, uncomplicated; E03.9 Hypothyroidism, unspecified; E78.5 Hyperlipidemia, unspecified
CPT/HCPCS: 36415; 80053; 80061; 82306; 82607; 82728; 82746; 83036; 83525; 83540; 84425; 84443; 84590; 84630; 85025; 86140; 93005

== ENCOUNTER 2024-02-25 11:44 | Outpatient (REF) | payer OTHER, SELFPAY ==
--- NOTE | ~2024-02-25 | XR_ITS ---
EXAMINATION: XR CHEST 2 VIEWS CLINICAL INFORMATION: Obesity, unspecified E66.9. COMPARISON: XR Chest 09/11/2021 TECHNIQUE: 2 views of the chest were obtained. FINDINGS: The lungs are well-expanded. There is no focal consolidation, edema or effusion. No pneumothorax. The cardiomediastinal silhouette is within normal limits. No acute osseous abnormality. XR/XR chest 2V IMPRESSION: No acute pulmonary disease. Study is assigned for dictation on April 29, 2024 Electronically signed by: Chalino Park MD 04/29/2024 11:48 AM [facility]
== END 2024-02-25 11:45 | disposition home or self-care (01) ==
LOC: HO.XRAY 11:44
PROVIDERS: Visit Provider Surgery
DX: E66.9 Obesity, unspecified (principal); Z68.35 Body mass index [BMI] 35.0-35.9, adult; J45.909 Unspecified asthma, uncomplicated; E03.9 Hypothyroidism, unspecified; E78.5 Hyperlipidemia, unspecified
CPT/HCPCS: 71046

== ENCOUNTER 2024-03-02 09:02 | Outpatient (REF) | payer OTHER, SELFPAY ==
--- NOTE | ~2024-03-02 | US_ITS ---
EXAMINATION: US COMPLETE ABDOMEN WITH LIVER ELASTOGRAPHY CLINICAL INFORMATION: Obesity. COMPARISON: None available. TECHNIQUE: Real-time imaging of the abdominal viscera. Noninvasive ultrasound liver fibrosis assessment is performed using Davon ElastPQ point quantification shear wave elastography (pSWE) with a C5-2 MHz transducer. Multiple elastography samples are obtained. FINDINGS: PANCREAS: Normal. The visualized pancreatic head and body are normal in appearance. The remainder of the pancreas is obscured from visualization by the overlying bowel gas. ABDOMINAL AORTA: The proximal, middle, and distal aortic segments are normal in caliber. INFERIOR VENA CAVA: Visualized portions are normal. LIVER: . The liver demonstrates normal size and contour but demonstrates increased echogenicity consistent with hepatic steatosis. No focal lesion or intrahepatic biliary duct dilatation. The right lobe measures 13.8 cm in length. The left lobe measures 11.4 cm in length. Portal flow is towards the liver (hepatopetal). Shear wave liver elastography median stiffness is 1.06 m/s (reference: normal median stiffness is 1.3 m/s or less). IQR/median stiffness to assess sampling precision is 0.21 (reference: good quality data set is IQR/median stiffness of 0.15 or less). GALLBLADDER: Normal. The gallbladder is physiologically distended without evidence of stones, sludge, polyps, wall thickening or pericholecystic fluid. COMMON BILE DUCT: Normal in caliber measuring 0.3 cm in diameter. RIGHT KIDNEY: Normal. No hydronephrosis. No renal calculi or focal parenchymal lesions. The kidney measures 10.6 cm in maximum dimension. LEFT KIDNEY: Normal. No hydronephrosis. No renal calculi or focal parenchymal lesions. The kidney measures 11.3 cm in maximum dimension. SPLEEN: Normal. The spleen measures 12.1 cm in maximum dimension. FREE FLUID: None. US/US abdomen comp w elastography IMPRESSION: 1. Hepatic steatosis. 2. Liver elastography: Measurements are consistent with a high probability of normal liver stiffness. REFERENCE: Society of Radiologists in Ultrasound Liver Stiffness Thresholds (2020): LIVER STIFFNESS THRESHOLDS: *Liver Stiffness equal or less than 1.3 m/s: High probability of being normal. *Liver Stiffness less than 1.7 m/s: In the absence of other known clinical signs, rules out compensated advanced chronic liver disease. *Liver Stiffness 1.7-2.1 m/s: Suggestive of compensated advanced chronic liver disease but need further test for confirmation. *Liver Stiffness over 2.1 m/s: Rules in compensated advanced chronic liver disease. *Liver Stiffness over 2.4 m/s: Suggestive of clinically significant portal hypertension. QUALITY OF DATA SET: *IQR/Median value equal or less than 0.15 implies a quality data set. *IQR/Median value over 0.15 implies a poor quality data set. SIGNIFICANT CHANGE FROM PRIOR EXAM: Significant change if liver stiffness measurement is 10% or greater from prior exam. OTHER CONSIDERATIONS: The stage of liver fibrosis may be overestimated in the setting of acute hepatitis, liver inflammation, elevated liver function tests, hepatic vascular congestion, obstructive cholestasis, non-fasting state, and infiltrative diseases such as amyloidosis and lymphoma. In some patients with NAFLD, the liver stiffness thresholds for compensated advanced chronic liver disease may be lower. In causes other than viral hepatitis and NAFLD, liver stiffness thresholds are not well established. Electronically signed by: Dillon Barrow MD 04/24/2024 01:40 PM BILL
== END 2024-03-02 09:03 | disposition home or self-care (01) ==
LOC: HO.US 09:02
PROVIDERS: PCP Nurse Practitioner Family; Visit Provider Surgery
DX: E66.9 Obesity, unspecified (principal); Z68.35 Body mass index [BMI] 35.0-35.9, adult; J45.909 Unspecified asthma, uncomplicated; E03.9 Hypothyroidism, unspecified; E78.5 Hyperlipidemia, unspecified
CPT/HCPCS: 76700; 76981

== ENCOUNTER 2024-03-05 09:54 | Day surgery (SDC) | payer OTHER, SELFPAY ==
[2024-03-05 10:14] VITALS: BP 157/84; PULSE 89; RESP 18; TEMP 36.8; O2SAT 97
[2024-03-05 10:19] VITALS: BMI 33.3
--- NOTE | 2024-03-05 10:45 | PC.NURSE ---
Dr. 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 Lehman will speak with patient regarding maintaining pain control at home and which medications to take or not take.
--- NOTE | 2024-03-05 11:16 | MHC.SHP ---
Pre-Procedural Eval Section A - 24 Hr Update-Section A only Date of Service: 03/05/24 The patient is an INPATIENT: No Changes since office visit: No Cold of Flu in the past 2 weeks, No New Medical Problems, No Changes in Medication and No Patient answered all questions The patient has been examined within 24 hours of the surgical procedure. The History & Physical has been completed within 30 days and I have reviewed it.: Yes Section B - Complete if H&P > 30 days Chief Complaint: Carpal tunnel syndrome, left upper limb Allergies: Allergies Allergy/AdvReac Type Severity Reaction Status Date / Time aspirin Allergy Mild mild Verified 03/05/24 10:21 Plan Diagnosis/Plan: Unchanged I have reviewed the history and physical and performed a pertinent physical examination on my patient. No changes have occurred unless specified. Time Spent With Patient Time: Total time managing care of this patient today ____ minutes.
--- NOTE | 2024-03-05 11:17 | W.PM.OPN ---
Operative Note Operative Note Date of Service: 03/05/24 Narrative: Preop diagnosis: 1. Left Carpal tunnel syndrome Postop diagnosis: same Procedure: 1. Left Carpal tunnel release Surgeon: Marilee Lehman MD Rn Supplemental: Tyson MAGAÑA Anesthesia: local block using 1% lidocaine with epinephrine Findings: Thickened transverse carpal ligament. EBL: Less than 5 mL Specimens: None Complications: None Disposition: Brought to recovery room in stable condition Plan: Follow-up for 10-14 days for wound check and suture removal Indications: The patient is 43 years old, with left carpal tunnel syndrome that has been unresponsive to nonoperative management. The risks and benefits of operative treatment including but not limited to risk of damage to blood vessels, nerves, tendons, infection, persistent pain, persistent symptoms, or possible need for additional surgery were discussed with the patient and the patient wishes to proceed with surgery. Procedure: Once consent was obtained a local block was performed using a combination of 1% lidocaine with epinephrine. The patient was then brought back to the operating suite and placed on the operative table in supine position. The left upper extremity was prepped and draped in a standard surgical fashion. Once assured that we had a good block, a 2.0 cm longitudinal incision was made centered over the carpal tunnel. The incision was made through the skin to the subcutaneous tissues using a #15 blade. Dissection was made down to the level of the transverse carpal ligament with care being taken to protect the palmar cutaneous nerve. Once the transverse carpal ligament was clearly visualized, a longitudinal incision was made in the transverse carpal ligament 1st using a #15 blade, then using tenotomy scissors under direct visualization. Care was taken to look for and protect the motor branch of the median nerve when seen in this area. Once satisfied with our carpal tunnel release the wound was copiously irrigated with normal saline and hemostasis was obtained with a brief period of local pressure. The skin edges were reapproximated with some 5.0 nylon suture material and a sterile dressing was applied. The patient appears to have tolerated the procedure well and with no complications. All digits were well vascularized at the conclusion of the case.
[2024-03-05 11:53] VITALS: BP 131/75; PULSE 81; RESP 17; O2SAT 99
== END 2024-03-05 11:57 | disposition home or self-care (01) ==
PROVIDERS: PCP Nurse Practitioner Family; Visit Provider Orthopaedic Surgery
PROC: (CPT 64721; principal; 2024-03-05 10:40)
DX: G56.02 Carpal tunnel syndrome, left upper limb (principal); R20.0 Anesthesia of skin; M77.12 Lateral epicondylitis, left elbow; M79.632 Pain in left forearm; J45.909 Unspecified asthma, uncomplicated; E28.2 Polycystic ovarian syndrome; E66.9 Obesity, unspecified; Z68.34 Body mass index [BMI] 34.0-34.9, adult; Z88.6 Allergy status to analgesic agent; Z98.890 Other specified postprocedural states; Z56.0 Unemployment, unspecified
CPT/HCPCS: 64721; J0171; J2003

== ENCOUNTER → 2024-03-05 09:54 | Outpatient (BNV) | payer OTHER, SELFPAY | PROVIDERS: PCP Nurse Practitioner Family; Visit Provider Orthopaedic Surgery | DX: G56.02 Carpal tunnel syndrome, left upper limb (principal) | CPT/HCPCS: 64721 ==

== ENCOUNTER 2024-03-10 10:14 | Outpatient (AMB) | payer OTHER, SELFPAY ==
--- NOTE | 2024-03-10 10:00 | A.OFFWM_ITS ---
Intake Intake Visit Reasons: VIDEO BH Intake Allergies aspirin Allergy (Mild, Verified 04/07/24 08:18) mild PFSH Medical History (Updated 04/07/24 @ 08:56 by Yeni Singh PA-C) Obesity Asthma PCOS (polycystic ovarian syndrome) Surgical History (Updated 04/07/24 @ 12:00 by Candida Ho, KIERSTEN) History of carpal tunnel release (03/05/24) Hx of laparoscopy Hx of section Social History Housing: Apartment Are you a primary resident care spec to a significant other at home: No Do you presently have visiting nurse or other home services: No Patient Tobacco Use Status: Never used Tobacco e-Cigarette/Vaping Use: Never Used Second Hand Smoke Exposure: No service: No Current occupational status: unemployed 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 PT presents interested in weight-loss treatment due to ongoing issues with obesity after last 1 year ago. Presenting Concerns Referral Source WMP- Provider. PT had initial visit with Dr. Haley Moreno for referral Completion of behavioral health assessment as part of process for weight-loss surgery. Precipitating Event Obesity Food/Weight/Diet Expectations of change Initial goal to lose 10% of your weight before surgery, which is about 19lbs. Ultimate weight goal: 174lbs before surgery. PT started on 02/14/2024 at 192Lbs, and today's weight is 185Lbs. She has lost 7Lbs since started the program. Patient would like to be at her healthy weight and be able to maintain it. PT is implementing the following: Current meal plan: 1 shake, 2 bars and 1 meal. Exercise plan: treadmill History/Relationship with food Example of meals before starting the program: Breakfast: Lunch: Dinner: Snacks: Drinks/Liquids: History/Relationship with weight PT reports she has never been over 200Lbs. Her overall weight as an adult has been 170-185Lbs. PT doesn't remember the last time she was at 150Lbs. In the last 10 years, the patient's Lowest weight was 165Lbs and highest 197Lbs last year after having her youngest daughter. History/Relationship with dieting Gym membership. Weight watchers. Social History Family history and relationship PT Lives with her partner and kids. She has been in a relationship with current partner 8 years ago Her 2 daughters are 18 and 1. Parental/Familial maintenance of way clerk obligations 2 daughters Legal Involvement and History Current or historical involvement with the legal system? None reported. Education Highest grade completed HS. Some college. Preferred learning style Learn by doing Currently enrolled in educational program? No Interested in further educational program? No Educational Interests/Skills loves technology. 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 No Meaningful activities Listen to music, time with her family and pets, and enjoys some crafts specially for special occasions. Enjoys traveling and outdoors, like camping or the beach. Financial Situation Describe current financial situation Comfortable Financial assistance? Food [place] Service Service? No Mental Health and Addiction Treatment Current/Past substance abuse? No Comments Alcohol: Occasionally. But hasn't drink since got with youngest daughter. Cigarettes/Tobacco:None. Cannabis/Edibles: None Current/Past addictive behavior concerns? No Psychiatric history PT states she has never been in counseling or getting prescribed psych meds. PT denies ever being in crisis or inpatient for mental health. There is no history and/or current concern about SI/SA and self-harm or other harm. Medical and Physical Health Summary Additional Medical History not covered in history None additional to listed problems on file. Sexual History concerns None reported. Physical exam in the last year? Yes Pain Screening Current pain? Yes Pain in the last few months? Yes Comments Due to carpel tunnel, plantar fasciitis, knee issues. Medications Is the patient compliant with medications? Yes Does the patient have Davey Guardian in place? Not applicable Does the patient use complimentary health approaches? No Trauma/Abuse History History of trauma? No Questionnaires PHQ-9 Over the last 2 weeks, how often have you been bothered by any of the following problems? 1. Little interest or pleasure in doing things: more than half the days 2. Feeling down, depressed, or hopeless: more than half the days 3. Trouble falling or staying asleep, or sleeping too much: several days 4. Feeling tired or having little energy: several days 5. Poor appetite or overeating: more than half the days 6. Feeling bad about yourself - or that you are a failure or have let yourself or your family down: several days 7. Trouble concentrating on things, such as reading the newspaper or watching television: several days 8. Moving or speaking so slowly that other people could have noticed. Or the opposite - being so fidgety or restless that you have been moving around a lot more than usual: several days 9. Thoughts that you would be better off or of hurting yourself in some way: not at all Total score: 11 Depression Screening Interpretation: Positive (Scores from new PT pack - ) Depression Screening Done: Yes Source: Developed by Drs. Pedro Carmona, Alla Harvey, Adonis Ansari and colleagues, with an educational abraham from [employer] Assessment & Plan Assessment & Plan (1) Adjustment disorder, unspecified: Code(s): F43.20 - Adjustment disorder, unspecified Plan PT not cleared yet. Will be seen again to finish assessment. Next karen: 03/26/2024 Telehealth Telehealth Telehealth Platform: [facility] Location of provider rendering services: other Location of patient: address on file Patient Identification confirmed using: Name, : Yes Telehealth method: video Patient verbally consented to treatment: Yes Patient verbally consented to billing insurance company: Yes Patient informed of any privacy concerns related to visit: Yes Minutes spent on Phone/Video with Pt.: 60 Coding Level of Care Code New Pt Tele Psy Diag Eval (53305) Patient Type New Diagnoses Adjustment disorder, unspecified F43.20 Time Spent (min) 60
== END 2024-03-10 11:00 | disposition home or self-care (01) ==
LOC: HO.HBST 10:14
PROVIDERS: PCP Nurse Practitioner Family; Visit Provider Counselor Mental Health
DX: F43.20 Adjustment disorder, unspecified (principal)
CPT/HCPCS: 90791

== ENCOUNTER → 2024-03-10 10:14 | Outpatient (BNVA) | payer OTHER, SELFPAY | PROVIDERS: PCP Nurse Practitioner Family; Visit Provider Counselor Mental Health ==

== ENCOUNTER 2024-03-18 12:51 | Outpatient (AMB) | payer OTHER, SELFPAY ==
--- NOTE | 2024-03-18 12:56 | A.OFFVIS_ITS ---
Vital Signs 03/18/24 13:00 Height 5 ft 2 in Weight 181 lb BMI 33.1 Handedness Right Intake Visit Reasons: PO LT CTR 03/05/24 AR Intake Note: Christal is a 43 year old right hand dominant female who presents today for a post operative visit s/p left carpal tunnel release w/ Dr Lehman DOS: 03/05/2024. Patient reports she is no longer having numbness and tingling. She expresses pain on the dorsal aspect of her left hand when making a closed fist. She feels discomfort at he incision site and describes it as if something got in there. Denies any discharge from her procedure. Allergies aspirin Allergy (Mild, Verified 03/18/24 13:00) mild HPI HPI PO LT CTR 03/05/24 AR: Details: Patient Is a 40-year-old presents postoperative evaluation status post left carpal tunnel release, DOS 03/05/[address] Lehman. Today, the patient reports that she is feeling very well, and is experiencing no further numbness or tingling in her left hand. The patient states that she has some minor discomfort around the incision site, but nothing she would describe as pain. The patient does state that she has been ?babying? the hand since surgery, and she feels that this may contribute to the fact that she does not feel she is able to make a closed fist with the left hand at this time. Patient states she is still experiencing numbness and tingling in the right upper extremity, but states that her EMG was negative for any right median neuropathy. No other acute complaints or concerns at this time. 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 Neuro: Normal sensation of the tips of all digits of the left hand at this time Vascular: Cap refill brisk Pain: Patient reports some very mild discomfort with palpation of the radial and ulnar aspects of the volar wrist just next to the incision site Patient does also report some discomfort with attempting to make a closed fist with the left hand, but this improves with repeated range of motion ROM: With encouragement, patient is able to make a closed fist and extend all digits of the left hand fully in the office today Skin: Well approximated and well healing incision site noted on the volar left wrist General: No ecchymosis, erythema, or evidence of infection. Psych: Appears grossly normal Affect normal Attitude cooperative Assessment & Plan Assessment & Plan (1) Carpal tunnel syndrome of left wrist: Code(s): G56.02 - Carpal tunnel syndrome, left upper limb Category: Medical (2) Numbness and tingling of right hand: Code(s): R20.0 - Anesthesia of skin; R20.2 - Paresthesia of skin Category: Medical Plan 1. Carpal tunnel syndrome, left, status post carpal tunnel release DOS 03/05/2024 Patient appears to be recovering well postoperatively Patient is educated about the typical recovery course Although the patient is able to make a closed fist in the office today, I did place a referral to occupational therapy for range of motion and particularly strengthening of the left hand, as the patient's ob tech strength on the left is markedly diminished compared to the right Patient is educated that she will not require scheduled follow-up with us, but if she notices that OT is ineffective and getting her range of motion and strength back she should call to make a follow-up appointment Patient understands this is amenable to this plan 2. Numbness and tingling of right hand Symptoms intermittent, daily, worse at night Negative EMG in August At this time, patient was referred for repeat EMG and nerve conduction study to assess the health of the nerves of the right upper extremity Patient will follow-up after EMG and nerve conduction study for results review and discussion of further treatment options Patient was amenable to this plan Patient will follow-up after EMG and nerve conduction study, sooner with any acute concerns Orders: Orders NE electromyogram (EMG) Today R20.0 - Anesthesia of skin, R20.2 - Paresthesia of skin OT Evaluation and Treatment Today G56.02 - Carpal tunnel syndrome, left upper limb NE nerve conduction velocity Today R20.0 - Anesthesia of skin, R20.2 - Paresthesia of skin Coding Level of Care Code Est Pt Level 3 (83163) Global (67932) Diagnoses Carpal tunnel syndrome of left wrist G56.02 Numbness and tingling of right hand R20.0; R20.2
[2024-03-18 13:00] VITALS: BMI 33.1
== END 2024-03-18 13:20 | disposition home or self-care (01) ==
LOC: HO.HOS 12:52
PROVIDERS: PCP Nurse Practitioner Family
DX: R20.0 Anesthesia of skin (principal); R20.2 Paresthesia of skin; G56.02 Carpal tunnel syndrome, left upper limb
CPT/HCPCS: 99024; 99213

== ENCOUNTER → 2024-03-18 12:51 | Outpatient (BNVA) | payer OTHER, SELFPAY | PROVIDERS: PCP Nurse Practitioner Family | DX: R20.0 Anesthesia of skin (principal); R20.2 Paresthesia of skin; Z48.811 Encounter for surgical aftercare following surgery on the nervous system; Z98.890 Other specified postprocedural states | CPT/HCPCS: 99212 ==

== ENCOUNTER 2024-03-26 10:13 | Outpatient (AMB) | payer OTHER, SELFPAY ==
--- NOTE | 2024-03-26 10:05 | MHC.WMTHER ---
Intake Intake Visit Reasons: VIDEO BH F/U Allergies aspirin Allergy (Mild, Verified 04/07/24 08:18) mild PFSH Medical History (Updated 04/07/24 @ 08:56 by Yeni Singh PA-C) Obesity Asthma PCOS (polycystic ovarian syndrome) Surgical History (Updated 04/07/24 @ 12:00 by Candida Ho, KIERSTEN) History of carpal tunnel release (03/05/24) Hx of laparoscopy Hx of section Social History Housing: Apartment Are you a primary md do resident urgent care to a significant other at home: No Do you presently have visiting nurse or other home services: No Patient Tobacco Use Status: Never used Tobacco e-Cigarette/Vaping Use: Never Used Second Hand Smoke Exposure: No service: No Current occupational status: unemployed 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 PT reorts she's interested in weight-loss treatment due to ongoing issues with obesity after last 1 year ago. PT denied any history of mental health treatment and or past hospitalization/crisis for behavioral health. Also, denies any history or recent safety concerns around SI/SA and/or self-harm/other-harm, also there is no history of substance use reported. There is also no evidence for stress/emotional-eating, and scores from BES suggest low risk for binge eating behavior. PHQ- scores also showed no active symptoms/concerns with depression. On the other hand, mental status exam is within normal limits, suggesting person's functioning is not impaired. At this time patient is cleared from the behavioral health standpoint. Presenting Concerns Referral Source WMP- Provider. PT had initial visit with Dr. De Leon Reason for referral Completion of behavioral health assessment as part of process for weight-loss surgery. Precipitating Event Obesity Living Situation Current Living Situation Rent At risk of losing current housing? No Satisfied with current living situation? Yes Comments Pt lives with her 2 children and their pets (2 dogs and 2 birds) Food/Weight/Diet Expectations of change Initial goal to lose 10% of your weight before surgery, which is about 19lbs. Ultimate weight goal: 174lbs before surgery. PT started on 02/14/2024 at 192Lbs, and today's weight is 185Lbs. She has lost 7 lbs since started the program. The patient would like to be at her healthy weight and be able to maintain it. PT is implementing the following: Current meal plan: 1 shake, 2 bars, and 1 meal. Exercise plan: treadmill History/Relationship with food PT reports she tends to skip meals as she's a busy mom. She also follows a -style diet with multiple carbs during the day and/or in 1 meal, not as much veggies, bigger portions in general for dinner, and no exercise within her daily routine. PT denies any HX of stress/emotional/eating. Denies using food as a reward or to lift her mood. Example of meals before starting the program: Breakfast: 9.30am (eggs) Lunch: skips Dinner: 4pm (rice, meat) Snacks: 3-4pm (fruit) Exercise: none Fluids: Coffee: 1 cup/d (milk and sugar), tea: none, soda: rarely, juice: orange juice daily, ETOH: none History/Relationship with weight PT reports she has never been over 200Lbs. Her overall weight as an adult has been 170-185Lbs. PT doesn't remember the last time she was at 150Lbs. In the last 10 years, the patient's Lowest weight was 165Lbs and highest 197Lbs last year after having her youngest daughter. History/Relationship with dieting Gym membership. Weight watchers. Binge Eating Do you frequently eat large amounts of food in short periods of time, not feeling physically hungry? No Do you feel out of control when you eat a large amount of food in a short period of time? No Do you eat large amounts of food rapidly and typically alone? No Night Eating Do you wake up at least once during the night to eat? No If you wake up in the night, do you find that it is necessary to eat something in order to fall back asleep? No Do you have little or no appetite in the morning and feel very hungry in the evening, often overeating between dinner and when you go to bed? Yes Social History Family history and relationship PT Lives with her partner and kids. She has been in a relationship with current partner 8 years ago Her 2 daughters are 18 and 1. Her mother and father live together in front of her. She has two siblings: her brother lives next door, and her sister lives with her parents. The client reports that they are a very close family and have good family relationships overall. Parental/Familial hourly sign language interpreter obligations 2 daughters Developmental history and status None reported. Currently WNL. Social support Parents, siblings, partner. Community support PCP. Christianity/Spirituality Faith. Cultural/Ethnic information . PT was born in [place]. [place]oved [place] the [place] when she was 14 y/o. Legal Involvement and History Current or historical involvement with the legal system? None reported. Education Highest grade completed HS. Some college. Preferred learning style Learn by doing Currently enrolled in educational program? No Interested in further educational program? No Educational Interests/Skills loves technology. 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 No Meaningful activities Listen to music, time with her family and pets, and enjoys some crafts specially for special occasions. Enjoys traveling and outdoors, like camping or the beach. Financial Situation Describe current financial situation Comfortable Financial assistance? Food Ethel Service Service? No Mental Health and Addiction Treatment Current/Past substance abuse? No Comments Alcohol: Occasionally. But hasn't drink since got with youngest daughter. Cigarettes/Tobacco:None. Cannabis/Edibles: None Current/Past addictive behavior concerns? No Psychiatric history PT states she has never been in counseling or getting prescribed psych meds. PT denies ever being in crisis or inpatient for mental health. There is no history and/or current concern about SI/SA and self-harm or other harm. Medical and Physical Health Summary Additional Medical History not covered in history None additional to listed problems on file. Sexual History concerns None reported. Physical exam in the last year? Yes Pain Screening Current pain? Yes Pain in the last few months? Yes Comments Due to carpel tunnel, plantar fasciitis, knee issues. Medications Is the patient compliant with medications? Yes Does the patient have Davey Guardian in place? Not applicable Does the patient use complimentary health approaches? No Trauma/Abuse History History of trauma? No Questionnaires PHQ-9 Over the last 2 weeks, how often have you been bothered by any of the following problems? 1. Little interest or pleasure in doing things: not at all 2. Feeling down, depressed, or hopeless: not at all 3. Trouble falling or staying asleep, or sleeping too much: not at all 4. Feeling tired or having little energy: not at all 5. Poor appetite or overeating: not at all 6. Feeling bad about yourself - or that you are a failure or have let yourself or your family down: not at all 7. Trouble concentrating on things, such as reading the newspaper or watching television: not at all 8. Moving or speaking so slowly that other people could have noticed. Or the opposite - being so fidgety or restless that you have been moving around a lot more than usual: not at all 9. Thoughts that you would be better off or of hurting yourself in some way: not at all Total score: 0 Depression Screening Interpretation: Negative Depression Screening Done: Yes 47247 - PHQ-9 Billing: Yes Source: Developed by Drs. Pedro Carmona, Alla Harvey, Adonis Ansari and colleagues, with an educational abraham from [employer]. Binge Eating Scale Group 1 A. I don't feel self-conscious about my wt. or body size when I'm with others. B. I feel concerned about how I look to others, but it normally does not make me fell disappointed with myself C. I do get self-conscious about my appearance and wt. which makes me feel disappointed in myself. D. I feel very self-conscious about my wt. and frequently I feel intense shame and disgust for myself. I try to avoid social contacts because of my self-consciousness. Response Group 1: C Group 2 A. I don't have any difficulty eating slowly in the proper manner. B. Although I seem to gobble down foods, I don't end up feeling stuffed because of eating to much. C. At times, I tend to eat quickly and then, I feel uncomfortably full afterwards. D. I have the habit of bolting down my food, without really chewing it. When this happens I usually feel uncomfortably stuffed because I've eaten to much. Response Group 2: B Group 3 A. I feel capable to control my eating urges when I want to. B. I feel like I have failed to control my eating more than the average person. C. I feel utterly helpless when it comes to feeling in control of my eating urges. D. Because I feel so helpless about controlling my eating I have become very desperate about trying to get control. Response Group 3: B Group 4 A. I don't have the habit of eating when I'm bored. B. I sometimes eat when I'm bored, but often I'm able to get busy and get my mind off food. C. I have a regular habit of eating when I'm bored, but occasionally, I can use some other activity to get my mind off eating. D. I have a strong habit of eating when I'm bored. Nothing seems to help me breath the habit. Response Group 4: A Group 5 A. I'm usually physically hungry when I eat something. B. Occasionally, I eat something on impulse even though I really am not hungry. C. I have the regular habit of eating foods, that I might not really enjoy, to satisfy a hungry feeling even though physically, I don't need the food. D. Although I'm not physically hungry, I get a hungry feeling in my mouth that only seems to be satisfied when I eat a food, like sandwich, that fills my mouth. Sometimes, when I eat the food to satisfy my mouth hunger, I then spit the food out so I won't gain weight. Response Group 5: B Group 6 A. I don't feel any guilt or self-hate after I overeat. B. After I overeat, occasionally I feel guilt or self-hate. C. Almost all the time I experience strong guilt or self-hate after I overeat. Response Group 6: B Group 7 A. I don't lose total control of my eating when dieting even after periods when I overeat. B. Sometimes when I eat a forbidden food on a diet, I feel like I blew it and eat even more. C. Frequently, I have the habit of saying to myself, I've blown it now, why not go all the way, when I overeat on a diet. When that happens I eat more. D. I have a regular habit of starting a strict diets for myself but I break the diets by going on an eating binge. My life seems to be either a feast or famine. Response Group 7: B Group 8 A. I rarely eat so much food that I feel uncomfortably stuffed afterwards. B. Usually about once a month, I each such a quantity of food, I end up feeling very stuffed. C. I have regular periods during the month when I eat large amounts of food, either at mealtime or at snacks. D. I eat so much food that I regularly feel quite uncomfortable after eating and sometimes a bit nauseous. Response Group 8: C Group 9 A. My level of calorie intake does not go up very high or go down very low on a regular basis. B. Sometimes after I overeat, I will try to reduce my caloric intake to almost nothing to compensate for the excess calories I've eaten. C. I have a regular habit of overeating during the night. It seems that my routine is not to be hungry in the morning but overeat in the evening. D. In my adult years, I have had week-long periods where I practically starve myself. This follows periods when I overeat. It seems I live a life of either feast or famine. Response Group 9: A Group 10 A. I usually am able to stop eating when I want to. I know when enough is enough. B. Every so often, I experience a compulsion to eat which I can't seem to control. C. Frequently, I experience strong urges to eat which I seem unable to control, but at other times I can control my eating urges. D. I feel incapable of controlling urges to eat. I have a fear of not being able to stop eating voluntarily. Response Group 10: B Group 11 A. I don't have any problem stopping eating when I feel full. B. I usually can stop eating when I feel full but occasionally overeat leaving me feeling uncomfortably stuffed. C. I have a problem stopping eating once I start and usually I feel uncomfortably stuffed after I eat a meal. D. Because I have a problem not being able to stop eating when I want, I sometimes have to induce vomiting to relieve my stuffed feeling. Response Group 11: A Group 12 A. I seem to eat just as much when I'm with others, Family social gatherings as when I'm by myself. B. Sometimes, when I'm with other persons, I don't eat as much as I want to eat because I'm self-conscious about my eating. C. Frequently, I eat only a small amount of food when others are present, because I'm very embarrassed about my eating. D. I feel so ashamed about overeating that I pick times to overeat when I know no one will see me. I feel like a closet eater. Response Group 12: A Group 13 A. I eat three meals a day with only an occasional between meal snack. B. I eat 3 meals a day, but I also normally snack between meals. C. When I am snacking heavily, I get in the habit of skipping regular meals. D. There are regular periods when I seem to be continually eating, with no planned meals. Response Group 13: B Group 14 A. I don't think much about trying to control unwanted eating urges. B. At least some of the time, I feel my thoughts are pre-occupied with trying to control my eating urges. C. I feel that frequently I spend much time thinking about how much I ate or about trying not to eat anymore. D. It seems to me that most of my waking hours are pre-occupied by thoughts about eating or not eating. I feel like I'm constantly struggling not to eat. Response Group 14: B Group 15 A. I don't think about food a great deal. B. I have strong craving for food but they last only for brief periods of time. C. I have days when I can't seem to think about anything else but food. D. Most of my days seem to be pre-occupied with thoughts about food. I feel like I live to eat. Response Group 15: A Binge Eating Score: 12 Score less than 17 Minimal Risk Score between 18-26 Moderate Risk Score between 27-46 High Risk Assessment & Plan Assessment & Plan (1) Adjustment disorder, unspecified: Code(s): F43.20 - Adjustment disorder, unspecified Plan PT has been cleared from BH standpoint. She has been advised to discuss with surgeon about her questions regarding surgery and . If client's moves forward with surgery she will be seen post-op for support. NExt karen: 2-4 wks PO Telehealth Telehealth Telehealth Platform: [employer] Location of provider rendering services: other Location of patient: address on file Patient Identification confirmed using: Name, : Yes Telehealth method: voice only Patient verbally consented to treatment: Yes Patient verbally consented to billing insurance company: Yes Patient informed of any privacy concerns related to visit: Yes Minutes spent on Phone/Video with Pt.: 60 Coding Level of Care Code Established Pt Tele Psytx >53 mins (85236) Patient Type Established Diagnoses Adjustment disorder, unspecified F43.20 Additional Codes PHQ-9 - 75348 - PHQ-9 Billing: Yes ([id number]) Time Spent (min) 60
== END 2024-03-26 15:58 | disposition home or self-care (01) ==
LOC: HO.HBST 10:13
PROVIDERS: PCP Nurse Practitioner Family; Visit Provider Counselor Mental Health
DX: F43.20 Adjustment disorder, unspecified (principal)
CPT/HCPCS: 90837

== ENCOUNTER 2024-03-27 09:50 | Outpatient (RCR) | payer OTHER, SELFPAY ==
--- NOTE | 2024-03-27 15:51 | MHC.OT.EP ---
[address] [phone] Occupational Therapy Plan of Care Patient Name: Christal Johnston Date of Evaluation: 03/27/24 Diagnosis: Pain Location: Pain Score: Pain Scale Used: Aggravating Factors: Alleviating Factors: Assessment: Pt is a R hand dominant female who had CTR surgery on her L wrist/palm less than a mos. ago. She reports she had a follow up w/ PA Tyson Michele and the stitches were removed. She was referred to skilled OT therapy to address decreased ROM, and sensitivity of scar. Pt presents today w/ increased ability to make a composite fist as well as denying any numbness or tingling in her digits. she reports mild pain and typically only w/ activity. She has stiffness / decreased ROM w/ wrist extension and mild sensitivity w/ palpation of volar scar (scar is healing well, its light in pink in color, smooth in texture, and cool to touch. 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 Thank you once again for your referral.
--- NOTE | 2024-04-06 08:08 | MHC.OT.DC ---
[address] [phone] F: [phone] Occupational Therapy Discharge Note Patient Name: Christal Johnston Provider: Tyson Michele Diagnosis: Date of Surgery: 03/05/24 Date of Evaluation: 03/27/24 Date of Discharge: Treatments to Date: 1 Cancellations to Date: No Shows to Date: Discharge Status: Patient Elected to Stop Discharge Summary: Pt had eval (1 visit) 03/27/24. and called to cx her follow up today and self discharge due to reports she was feeling better. Electronically Signed By: Analy Multani OTR/L Reviewed/agree with student documentation: N/A Therapist: Please Sign and return to therapist, thank you for your referral.
== END 2024-04-06 08:08 | disposition home or self-care (01) ==
LOC: HO.OT 09:50
PROVIDERS: PCP Nurse Practitioner Family
DX: G56.02 Carpal tunnel syndrome, left upper limb (principal)
CPT/HCPCS: 97110; 97140; 97165

== ENCOUNTER 2024-04-07 08:03 | Outpatient (REF) | payer OTHER, SELFPAY ==
[2024-04-07 13:32] LABS: Influenza A PCR NEGATIVE (Negative); Influenza B PCR NEGATIVE (Negative); Resp Syncy Virus RNA Qual PCR NEGATIVE (Negative); SARS COV2 PCR INHOUSE NEGATIVE (Negative)
== END 2024-04-07 08:04 | disposition home or self-care (01) ==
LOC: HO.LAB 08:03
PROVIDERS: PCP Nurse Practitioner Family; Visit Provider Physician Assistant
DX: J06.9 Acute upper respiratory infection, unspecified (principal); J18.9 Pneumonia, unspecified organism
CPT/HCPCS: 0241U; 87880; 99212

== ENCOUNTER 2024-04-07 08:03 | Outpatient (AMB) | payer OTHER, SELFPAY ==
[2024-04-07 08:06] VITALS: BP 120/80; PULSE 81; TEMP 36.7; O2SAT 97; BMI 32.9
--- NOTE | 2024-04-07 08:06 | MHC.OFFWIV ---
Intake Vital Signs 04/07/24 08:06 Height 5 ft 2 in Weight 180 lb BMI 32.9 BP 120/80 Blood Pressure Location Rt brachial Position Sitting Pulse 81 Pulse Source Pulse Oximeter Temp 98.1 F Temp Source Oral Pulse Oximetry (%) 97 Oxygen Delivery Method Room Air Intake Visit Reasons: EP-sore throat, cough Intake Note: Patient here for sore throat and cough that has been present for about 3 weeks. Patient Tobacco Use Status: Never used Tobacco Allergies aspirin Allergy (Mild, Verified 04/07/24 08:18) mild Do you need a note to return to daycare/school/sports/work: No HPI HPI Comments History of Present Illness Details Patient is a 43-year-old female complaining of 4 days of a sore throat and 3 weeks of a dry cough that is worse at night, head congestion, shortness of breath and wheezing. Patient denies sinus pain, ear pains or fevers. She tells me she does have a history of asthma and has been taking her Advair Diskus as directed and has been using her rescue albuterol inhaler more frequently than typical. She tells me she has tried taking ibuprofen with some relief in her sore throat. She is able to eat and drink normally. She did not test for COVID at home and she denies any sick contacts. 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 Current occupational exposures/hazards: No Cognitive needs: No Hearing needs: No Vision needs: No Review of Systems Const All systems reviewed & are unremarkable except as noted in HPI and below Physical Exam Vital Signs: Last Vital Signs Temp 98.1 F 04/07/24 08:06 Pulse 81 04/07/24 08:06 BP 120/80 04/07/24 08:06 Pulse Ox 97 04/07/24 08:06 Oxygen Delivery Method Room Air 04/07/24 08:06 BMI result Body Mass Index 32.9 Const General: cooperative, healthy appearing, comfortable and no acute distress Orientation/consciousness: patient oriented x3 Limitations: no limitations HEENT Head: Yes normal to inspection Ears: hearing grossly normal bilaterally, external ears normal and TM's normal bilaterally General nose exam: Normal external nose present, Normal nares present and No nasal discharge present Face and sinus: Yes normal facial exam and Yes sinuses nontender Mouth: Normal oral and palatal mucosa present and moist mucous membranes Throat: Yes tonsils normal, Yes uvula midline and Yes posterior oropharynx abnormal (Erythema) Eyes General: appearance normal, both eyes and all related structures Neck Neck: Yes normal visual inspection Resp Effort & Inspection: normal respiratory effort, able to speak in complete sentences, no respiratory distress, not tachypneic, no tripod positioning and no use of accessory muscles Auscultation: clear to auscultation bilaterally Cardio Rate: regular rate Rhythm: regular rhythm Heart sounds: normal S1 and S2 Skin General skin exam: no rashes or lesions noted Neuro General: patient oriented x3 Extrem General: Yes normal to inspection and Yes no clubbing, cyanosis or edema Results AMB Rapid Strep AMB Rapid Strep Negative Last Edit by CARA Gonzales on 04/07/24 09:20 AMB Rapid Strep previously reported as Positive Jaime Medley 04/07/24 09:20 Results Reviewed Results Reviewed: Laboratory Last Values Strep Scn [facility] Positive 04/07/24 08:58 Assessment & Plan Assessment & Plan (1) Atypical pneumonia: Code(s): J18.9 - Pneumonia, unspecified organism Plan: Vital signs are stable, patient well-appearing, we will send a Z-Gera for atypical pneumonia and Tessalon Perles for her cough. Rapid strep in office was negative. Recommended supportive care for her sore throat including hot tea with honey and the throat sprays with numbing action. Also sent flu COVID and RSV testing. Plan See above Coding Level of Care Code Est Pt Level 3 (57300) Diagnoses Atypical pneumonia J18.9
== END 2024-04-07 09:17 | disposition home or self-care (01) ==
PROVIDERS: PCP Nurse Practitioner Family; Visit Provider Physician Assistant
DX: Z13.9 Encounter for screening, unspecified (principal); J18.9 Pneumonia, unspecified organism

== ENCOUNTER 2024-04-14 05:40 | Outpatient (REF) | payer OTHER, SELFPAY ==
--- NOTE | 2024-04-14 05:42 | EMG_ITS ---
Right median and ulnar motor and sensory studies were performed. Right radial and median and lateral antecubital, radial sensory studies were performed and paraspinal muscles were tested with a needle. IMPRESSION: Unremarkable study. MD BENJI Garcia/DIANE / [id number]
== END 2024-04-14 05:41 | disposition home or self-care (01) ==
LOC: HO.NEURO 05:40
PROVIDERS: PCP Nurse Practitioner Family
DX: R20.0 Anesthesia of skin (principal); R20.2 Paresthesia of skin
CPT/HCPCS: 95886; 95910

== ENCOUNTER 2024-06-23 11:19 | Outpatient (REF) | payer OTHER, SELFPAY ==
--- OUTSIDE RECORDS SUMMARY | 2024-06-23 12:21 | XMS_ITS | Clinical Summary ---
Author Organization [facility] Address [address] [place] [address] Care Team Providers Care Checkering Machine Adjuster Name Role Phone Unavailable Primary Care Provider Unavailabl e Source Comments PLEASE NOTE, if this patient is a minor, it may be UNLAWFUL to discuss sensitive information that is contained in these records (such as FAMILY PLANNING, MENTAL HEALTH or SUBSTANCE ABUSE) with the minor patient's parent or other person without the patient's specific authorization.[facility] Immunizations Name Administration Dates Next Due Moderna COVID-19 Vaccine, re d cap blue label, 12+ Primary Series 09/21/2020,08/24/2020 Social History Tobacco Use Types Packs/Day Years Used Date Smoking Tobacco: Never Assessed Social Connections Answer Date Recorded Social Connections and Isolation 0 08/24/2020 Financial Resource Strain Answer Date R ecorded Financial Resource Strain 0 2020 Stress Answer Date Recorded Stress 0 08/24/2020 Physical Activity Answer Date Recorded Physical Activity 0 08/24/2020 Food Insecurity Answer Date Recorded Food 0 08/24/2020 Transportation Needs Answer Date Record ed Transportation 0 08/24/2020 Housing Stability Answer Date Recorded Housing 0 08/24/2020 Safety and Environment Answer Date Jovi rded Safety 0 08/24/2020 Utilities Answer Date Recorded Utilities 0 08/24/2020 Employment Answer Date Recorded Employment 0 08/24/2020 Comments Unknown Sex and Gender Information Value Date Recorded Sex Assigned at Not on file Legal Sex Female 7:44 AM PDT Gender Identity Not on file Sexual Orientation Not on file Plan of Treatment Health Maintenance Due Date Last Done Comments Diabetes Screening 1980 HPV Screening 1980 Hepatitis C Screening 1980 Lipid Screening 1980 Pap + HPV 1980 Tobacco Screening 1980 HIV Screening 1995 Relationship Safety Screening/Counseling 1995 Annual Preventive Care Visit 1998 Hypertension Screening (#1) 1998 Imm-Hepatitis B (1 of 3 - 19 + 3-dose series) 1999 Cervical Cancer Screening 2001 Pap Smear 2001 Breast Cancer Screening (Mammogram) 2020 Imm-DTaP/Tdap/Td (2 - Td or Tdap) 05/07/2022 012 Alcohol and Drug Screen 05/20/2023 Depression Annual Screen 05/20/2023 [id number] ( season) 2024 021, 08/24/2020 Imm-Influenza (#1) 2024 02/01/2020, 0 01/17/2019, 03/30/2014, Additional history exists Cervical Ablation/Cold-Knife Conization Discontinued Cervical Cryotherapy Discontinued Colposcopy Discontinued Endometrial Biopsy Discontinued Excision/Leep Discontinued HPV Genotyping Discontinued Vaginal Pap Discontinued Vulvoscopy Discontinued Insurance [employer] PLAN Member Subscriber Plan / Payer (Ef fective 2020-Present) Name:Christal Johnston Relation to Subscriber:Self Name:Christal Johnston Payer ID:[id number] Group ID:[id number] Type:Medicaid Address: [facility] [address] [place] [address]
--- OUTSIDE RECORDS SUMMARY | 2024-06-23 12:21 | XMS_ITS | Encounter Summary ---
Author Organization [employer] [facility] Address [address] [place] [address] Care Team Providers Care Instrument Mechanic Weapons System Name Role Phone Unavailable Primary Care Provider Unavailabl e Encounter Details Date Type Department Care Team (Latest Contact Info) Description 08/15/2018 Abstract [facility] CONVERSIONS Dental, Provider, DDS Social History Tobacco Use Types Packs/Day Years Used Date Smoking Tobacco: Never Assessed Comments Unknown Sex and Gender Information Value Date Recorded Sex Assigned at Female 03/19/2022 10:32 AM EDT Legal Sex Female 10:32 AM EDT Gender Identity Not on file Sexual Orientation Not on file documented as of this encounter Plan of Treatment Not on file documented as of this encounter Visit Diagnoses Not on filedocumented in this encounter
--- OUTSIDE RECORDS SUMMARY | 2024-06-23 12:21 | XMS_ITS | Clinical Summary ---
Author Organization [facility] [employer] Address [address] [facility] [facility] [address] [place] [address] Care Team Providers Care Farm Equipment Engineer Name Role Phone Unavailable Primary Care Provider Unavailabl e Social History Tobacco Use Types Packs/Day Years Used Date Smoking Tobacco: Never Assessed Comments Unknown Sex and Gender Information Value Date Recorded Sex Assigned at Female 03/19/2022 10:32 AM EDT Legal Sex Female 10:32 AM EDT Gender Identity Not on file Sexual Orientation Not on file Plan of Treatment Health Maintenance Due Date Last Done Comments Depression Screening 1980 Alcohol/Substance Use Screening 1992 Tobacco Screening 1992 Family Planning (PISQ) 1995 DTaP/Tdap/Td Vaccines (1 - Tdap) 1999 Hepatitis B Vaccines (1 of 3 - 19+ 3-dose series) 1999 Pap Smear 2001 Cervical Cancer Screening 2010 HPV/Cotest 2010 Mammogram 2020 COVID-19 Vaccine (1 - 2023-2 5 season) 2024 Influenza Vaccine (#1) 2024 Zoster Vaccines (1 of 2) 2030 RSV Patients and Pa tients Aged 60 years or older (1 - 1-dose 75+ series) 2055 HIB Vaccines Aged Out No longer eligi ble based on patient's age to complete this topic HPV Vaccines Aged Out No longer eligi ble based on patient's age to complete this topic Hepatitis A Vaccines Aged Out No long er eligible based on patient's age to complete this topic IPV Vaccines Aged Out No longer eligi ble based on patient's age to complete this topic Meningococcal Vaccine Aged Out No reba deyvi eligible based on patient's age to complete this topic Pneumococcal Vaccine: Pediat rics (0 to 5 Years) and At-Risk Patients (6 to 49) Years) Aged Out No longer eligible b ased on patient's age to complete this topic RSV under 20 months Aged Out No longe r eligible based on patient's age to complete this topic Rotavirus Vaccines Aged Out No longer eligible based on patient's age to complete this topic
[2024-06-23 13:19] LABS: MANUAL DIFF FLAG NO
[2024-06-23 13:32] LABS: Basophils Percent Auto 0.4 % (0-2); Eosinophils Absolute Auto 0.1 X10*3/uL (0.0-0.4); Eosinophils Percent Auto 1.9 % (0-4); Hematocrit 36.1 % (37.0-47.0); Hemoglobin 12.3 g/dl (12.0-16.0); Imm Gran Abs Auto 0.02 X10*3/uL (0.00-0.03); Imm Gran Pct Auto 0.3 % (0.0-0.4); Lymphocytes Absolute Auto 1.6 X10*3/uL (1.2-4.9); Lymphocytes Percent Auto 20.6 % (20-40); Mean Corpuscular HGB Conc 34.1 g/dl (31.0-35.0); Mean Platelet Volume 11.9 fL (9.4-12.3); Monocytes Absolute Auto 0.4 X10*3/uL (0.1-1.2); Monocytes Percent Auto 5.7 % (2-11); Neutrophils Absolute Auto 5.4 x10*3/uL (2.0-8.3); Neutrophils Percent Auto 71.1 % (45-73); Platelet Count 248 X10*3/uL (160-400); Red Cell Distribution Width 12.4 % (11.0-16.0); White Blood Count 7.5 X10*3/uL (4.8-10.8)
[2024-06-23 14:13] LABS: Alanine Aminotransferase 12 U/L (0-31); Albumin Level 3.7 g/dL (3.5-5.0); Alkaline Phosphatase 85 U/L (39-117); Anion Gap 18 (12-20); Aspartate Amino Transferase 17 U/L (5-31); Bilirubin Total 0.3 mg/dL (0.0-1.0); Blood Urea Nitrogen 8 mg/dL (9-16); Calcium 8.8 mg/dL (8.4-10.2); Carbon Dioxide 21 mmol/L (22-29); Chloride 103 mmol/L (96-108); Estimated Glomerular Filt Rate > 60; Glucose Random 73 mg/dL (60-115); Potassium 3.7 mmol/L (3.3-5.1); Sodium 138 mmol/L (135-145); Total Protein 7.1 g/dL (6.5-8.0)
[2024-06-23 14:16] LABS: TSH reflex Free T4 2.27 uIU/mL (0.32-4.0)
[2024-06-23 14:24] LABS: Vitamin B12 514 pg/mL (200-900)
[2024-06-27 01:08] LABS: Zinc 74 mcg/dL (60-130)
== END 2024-06-23 11:20 | disposition home or self-care (01) ==
LOC: HO.HMGCLDS 11:19
PROVIDERS: PCP Nurse Practitioner Family; Visit Provider Nurse Practitioner Family
DX: L65.9 Nonscarring hair loss, unspecified (principal)
CPT/HCPCS: 36415; 80053; 82607; 82746; 84443; 84630; 85025

== ENCOUNTER 2024-07-08 09:07 | Outpatient (REF) | payer OTHER, SELFPAY ==
--- OUTSIDE RECORDS SUMMARY | 2024-07-08 13:16 | XMS_ITS | Clinical Summary ---
Author Organization [facility] Address [address] [place] [address] Care Team Providers Care Cd Reactor Operator Head Name Role Phone Unavailable Primary Care Provider [...] Drug Screen 05/20/2023 Depression Annual Screen 05/20/2023 [id number] ( season) 2024 021, 08/24/2020 Imm-Influenza (#1) 2024 02/01/2020, 0 01/17/2019, 03/30/2014, Additional history exists Cervical Ablation/Cold-Knife Conization Discontinued Cervical Cryotherapy Discontinued Colposcopy Discontinued Endometrial Biopsy Discontinued Excision/Leep Discontinued HPV Genotyping Discontinued Vaginal Pap Discontinued Vulvoscopy Discontinued Insurance [employer] PLAN Member Subscriber Plan / Payer (Ef fective 2020-Present) Name:Christal Johnston Relation to Subscriber:Self Name:Christal Johnston Payer ID:[id number] Group ID:[id number] Type:Medicaid Address: [facility] [address] [place] [address]
[2024-07-08 13:53] LABS: Influenza A PCR NEGATIVE (Negative); Influenza B PCR NEGATIVE (Negative); Resp Syncy Virus RNA Qual PCR NEGATIVE (Negative); SARS COV2 PCR INHOUSE NEGATIVE (Negative)
== END 2024-07-08 09:08 | disposition home or self-care (01) ==
LOC: HO.LNP 09:07
PROVIDERS: PCP Nurse Practitioner Family; Visit Provider Physician Assistant
DX: J11.1 Influenza due to unidentified influenza virus with other respiratory manifestations (principal)
CPT/HCPCS: 0241U; 87880; 99212

== ENCOUNTER 2024-07-08 09:07 | Outpatient (AMB) | payer OTHER, SELFPAY ==
--- NOTE | 2024-07-08 09:13 | AM.OFFWIN_ITS ---
Intake Vital Signs 07/08/24 09:18 Height 5 ft 2 in Weight 178 lb BMI 32.6 BP 130/90 H Blood Pressure Location Lt brachial Position Sitting Pulse 113 H Pulse Source Pulse Oximeter Temp 98.6 F Temp Source Oral Pulse Oximetry (%) 98 Oxygen Delivery Method Room Air Intake Visit Reasons: EP sore throat, body aches, cough Intake Note: Patient here for SOB, cough, sore throat and body aches that started yesterday. Patient Tobacco Use Status: Never used Tobacco Allergies aspirin Allergy (Mild, Verified 07/08/24 09:19) mild Do you need a note to return to daycare/school/sports/work: No HPI HPI Comments History of Present Illness Details Patient is a 44yo F who is 11wks who presents to office wi ST since last night She states onset congestion, poor sleeping due to post nasal drip Upon waking uo + body aches No medicine taken No fever or chills + fatigue Okay appetite + cough that is dry She denies nausea/vomiting/diarrhea PFSH Medical History (Updated 07/08/24 @ 09:31 by Damari Rueda PA-C) Obesity Asthma PCOS (polycystic ovarian syndrome) Surgical History (Updated 04/07/24 @ 12:00 by Candida Ho RN) History of carpal tunnel release (03/05/24) Hx of laparoscopy Hx of section Social History Housing: Apartment Are you a primary career transition specialist to a significant other at home: No Do you presently have visiting nurse or other home services: No Patient Tobacco Use Status: Never used Tobacco e-Cigarette/Vaping Use: Never Used Second Hand Smoke Exposure: No service: No Current occupational status: unemployed 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 Current occupational exposures/hazards: No Cognitive needs: No Hearing needs: No Vision needs: No Review of Systems Const Reports body aches, Reports fatigue and Denies fever(s) ENT Denies dizziness, Denies otalgia, Reports nasal congestion and Reports sore throat Card Denies chest pain and Denies dyspnea Resp Denies change in phlegm color, Reports cough, Denies hemoptysis and Denies dyspnea GI Denies abdominal pain, Denies diarrhea, Denies nausea and Denies vomiting Musc Reports myalgias Neuro Denies dizziness Endo Reports fatigue Physical Exam Vital Signs: Last Vital Signs Temp 98.6 F 07/08/24 09:18 Pulse 113 H 07/08/24 09:18 BP 130/90 H 07/08/24 09:18 Pulse Ox 98 07/08/24 09:18 Oxygen Delivery Method Room Air 07/08/24 09:18 BMI result Body Mass Index 32.6 General: Non-toxic, NAD. Speaking full sentences. Skin: Warm dry throughout Eye: EOMI HENT: Airway patent. Uvula midline. No pharyngeal erythema or edema. No BREASTFEEDING PEER COUNSELOR. Bilateral canals clear. TM non-erythematous, non-bulging. No TM perforation or hemotympanum noted. Respiratory: CTA bilaterally. No wheezes, rales or rhonchi Cardiac: RRR. No murmur MSK: Full ROM extremities. Neurology: Alert. No aphasia or facial droop. Gait without abnormality Psych: Good mood and affect Assessment & Plan Assessment & Plan (1) Influenza-like illness: Code(s): J11.1 - Influenza due to unidentified influenza virus with other respiratory manifestations Plan: Patient seen and evaluated. HR normalized on auscultation Strep negative Flu/rsv/covid swab obtained and sent We discussed tylenol and fluids If flu +, can call in tamiflu Any worsening concerns go to ER Patient gave verbal understanding and had no additional questions or concerns at time of discharge All questions answered Orders: Orders SARS-CoV2/FLU/RSV Today J11.1 - Influenza due to unidentified influenza virus with other respiratory manifestations Coding Level of Care Code Est Pt Level 3 (30583) Diagnoses Influenza-like illness J11.1
[2024-07-08 09:18] VITALS: BP 130/90; PULSE 113; TEMP 37; O2SAT 98; BMI 32.6
--- OUTSIDE RECORDS SUMMARY | 2024-07-08 09:19 | XMS_ITS | Clinical Summary ---
Author Organization [facility] Address [address] [place] [address] Care Team Providers Care Seamer Operator Name Role Phone Unavailable Primary Care Provider [...] Drug Screen 05/20/2023 Depression Annual Screen 05/20/2023 [id number] ( season) 2024 021, 08/24/2020 Imm-Influenza (#1) 2024 02/01/2020, 0 01/17/2019, 03/30/2014, Additional history exists Cervical Ablation/Cold-Knife Conization Discontinued Cervical Cryotherapy Discontinued Colposcopy Discontinued Endometrial Biopsy Discontinued Excision/Leep Discontinued HPV Genotyping Discontinued Vaginal Pap Discontinued Vulvoscopy Discontinued Insurance [employer] PL[employer] Member Subscriber Plan / Payer (Ef fective 2020-Present) Name:Christal Johnston Relation to Subscriber:Self Name:Christal Johnston Payer ID:[id number] Group ID:[id number] Type:Medicaid Address: [facility] [address] [place] [address]
--- OUTSIDE RECORDS SUMMARY | 2024-07-08 09:19 | XMS_ITS | Clinical Summary ---
Author Organization [employer] Address [address] [facility] [address] [place] [address] Care Team Providers Care Cuffer Name Role Phone Unavailable Primary Care Provider [...]
--- OUTSIDE RECORDS SUMMARY | 2024-07-08 09:19 | XMS_ITS | Encounter Summary ---
Author Organization [facility] Address [address] [place] [address] Care Team Providers Care Fractionating Still Operator Name Role Phone Unavailable Primary Care Provider Unavailabl e Encounter Details Date Type Department Care Team (Latest Contact Info) Description 08/15/2018 Abstract [facility] CONVERSIONS Dental, Provider, DDS Social History [...]
--- NOTE | 2024-07-08 09:46 | MHC.OFFWIV ---
Intake Vital Signs 07/08/24 09:18 Height 5 ft 2 in Weight 178 lb BMI 32.6 BP 130/90 H Blood Pressure Location Lt brachial Position Sitting Pulse 113 H Pulse Source Pulse Oximeter Temp 98.6 F Temp Source Oral Pulse Oximetry (%) 98 Oxygen Delivery Method Room Air Intake Visit Reasons: EP sore throat, body aches, cough Patient Tobacco Use Status: Never used Tobacco Allergies aspirin Allergy (Mild, Verified 07/08/24 09:19) mild PFSH Medical History (Updated 07/08/24 @ 09:31 by Damari Rueda PA-C) Obesity Asthma PCOS (polycystic ovarian syndrome) Surgical History (Updated 04/07/24 @ 12:00 by Candida Ho RN) History of carpal tunnel release (03/05/24) Hx of laparoscopy Hx of section Social History Housing: Apartment Are you a primary home care music therapist to a significant other at home: No Do you presently have visiting nurse or other home services: No Patient Tobacco Use Status: Never used Tobacco e-Cigarette/Vaping Use: Never Used Second Hand Smoke Exposure: No service: No Current occupational status: unemployed 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 Current occupational exposures/hazards: No Cognitive needs: No Hearing needs: No Vision needs: No Physical Exam Vital Signs: Last Vital Signs Temp 98.6 F 07/08/24 09:18 Pulse 113 H 07/08/24 09:18 BP 130/90 H 07/08/24 09:18 Pulse Ox 98 07/08/24 09:18 Oxygen Delivery Method Room Air 07/08/24 09:18 BMI result Body Mass Index 32.6 Results AMB Rapid Strep AMB Rapid Strep Negative Last Edit by CARA Gonzales on 07/08/24 09:46 Results Reviewed Results Reviewed: Laboratory Last Values Strep Scn [facility] Clinic Negative 07/08/24 09:45 Assessment & Plan Assessment & Plan (1) Influenza-like illness: Code(s): J11.1 - Influenza due to unidentified influenza virus with other respiratory manifestations Orders: Orders AMB Rapid Strep Screen Today Z13.9 - Encounter for screening, unspecified SARS-CoV2/FLU/RSV Today J11.1 - Influenza due to unidentified influenza virus with other respiratory manifestations Coding Diagnoses Influenza-like illness J11.1
== END 2024-07-08 10:03 | disposition home or self-care (01) ==
PROVIDERS: PCP Nurse Practitioner Family; Visit Provider Physician Assistant
DX: J11.1 Influenza due to unidentified influenza virus with other respiratory manifestations (principal); Z13.9 Encounter for screening, unspecified

== ENCOUNTER 2025-01-29 14:33 | Outpatient (AMB) | payer OTHER, SELFPAY ==
--- NOTE | 2025-01-29 14:43 | MHC.OFFVIS ---
Vital Signs 01/29/25 14:49 Height 5 ft 2 in Weight 178 lb BMI 32.6 Intake Visit Reasons: OV: Right hand pain/numbness Intake Note: Christal is a 44 year old right hand dominant female who presents today for follow up of her Right Hand Numbness and Tingling. Patient states her symptoms are daily and constant, however her symptoms are now only affecting her finger tips rather than the entire hand. Patient thinks this was gestational carpal tunnel syndrome as she has noticed improvement since giving 3 weeks ago. During her , she was using a compression glove and a wrist brace with relief. Currently, she is not taking any pain medications for this. History of left carpal tunnel release, DOS: 03/05/[address] Lehman. EMG performed prior to pregancy. Allergies aspirin Allergy (Mild, Verified 01/29/25 14:43) mild HPI HPI OV: Right hand pain/numbness: Details: Christal is a 44 year old right hand dominant female who presents today for follow up of her Right Hand Numbness and Tingling. Patient states her symptoms are daily and constant, however her symptoms are now only affecting her finger tips rather than the entire hand. Patient thinks this was gestational carpal tunnel syndrome as she has noticed improvement since giving 3 weeks ago. During her , she was using a compression glove and a wrist brace with relief. Currently, she is not taking any pain medications for this. History of left carpal tunnel release, DOS: 03/05/[address] Lehman. EMG performed prior to pregancy. [facility] Medical History (Updated 12/23/24 @ 12:13 [facility] Obesity Asthma PCOS (polycystic ovarian syndrome) Surgical History (Updated 04/07/24 @ 12:00 by Candida Ho RN) History of carpal tunnel release (03/05/24) Hx of laparoscopy Hx of section Social History Housing: Apartment Are you a primary residential child care counselor to a significant other at home: No Do you presently have visiting nurse or other home services: No Patient Tobacco Use Status: Never used Tobacco e-Cigarette/Vaping Use: Never Used Second Hand Smoke Exposure: No service: No Current occupational status: unemployed 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 Normal sensation to all other digits in the right hand today. Normal sensation in the tips of all digits of the left hand today. No thenar or intrinsic wasting. Good APB muscle firing and good finger cross. Vascular: Capillary refill brisk. ROM: Patient can make a fist and extend all their digits. Skin: No lacerations or abrasions noted. General: No ecchymosis. No erythema or evidence of infection. Assessment & Plan Assessment & Plan (1) Numbness and tingling of right hand: Code(s): R20.0 - Anesthesia of skin; R20.2 - Paresthesia of skin Category: Medical Plan 1. Numbness and tingling in median nerve distribution of right hand Symptoms constant, daily, worse at night Patient is educated about this condition Patient is educated about the typical Treatment course At this time, patient is referred for EMG and nerve conduction study to his assess the health of the nerves of the right upper extremity Patient will follow-up after EMG and nerve conduction study for results review and discussion of further treatment options if indicated Patient understands this and is amenable to this plan Orders: Orders NE nerve conduction velocity Today R20.0 - Anesthesia of skin, R20.2 - Paresthesia of skin NE electromyogram (EMG) Today R20.0 - Anesthesia of skin, R20.2 - Paresthesia of skin Coding Level of Care Code Est Pt Level 3 (27995) Diagnoses Numbness and tingling of right hand R20.0; R20.2
[2025-01-29 14:49] VITALS: BMI 32.6
--- OUTSIDE RECORDS SUMMARY | 2025-01-29 17:20 | XMS_ITS | Clinical Summary ---
Author Organization [facility] Address [address] [place] [address] Care Team Providers Care Brace End Mainspring Former Name Role Phone Unavailable Primary Care Provider Unavailabl e Source Comments PLEASE NOTE, if this patient is a minor, it may be UNLAWFUL to discuss sensitive information that is contained in these records (such as FAMILY PLANNING, MENTAL HEALTH or SUBSTANCE ABUSE) with the minor patient's parent or other person without the patient's specific authorization.[facility] Immunizations Immunization Administration Dates Next Due Moderna COVID-19 Vaccine, [...] Health Maintenance Due Date Last Done Comments Anxiety Screening 1980 Diabetes Screening 1980 HPV Screening 1980 Hepatitis C Screening 1980 Lipid Screening 1980 Pap + HPV 1980 Tobacco Screening 1980 HIV Screening 1995 Relationship Safety Screening/Counseling 1995 Hypertension Screening (#1) 1998 Imm-Hepatitis B (1 of 3 - 19 + 3-dose series) 1999 Cervical Cancer Screening 2001 Pap Smear 2001 Breast Cancer Screening (Mammogram) 2020 Imm-DTaP/Tdap/Td (2 - Td or Tdap) 05/07/2022 012 Alcohol and Drug Screen 05/20/2024 Depression Annual Screen 05/20/2024 [id number] ( season) 2025 021, 08/24/2020 Imm-Influenza (#1) 2025 02/01/2020, 0 01/17/2019, 03/30/2014, Additional history exists Cervical Ablation/Cold-Knife Conization Discontinued Cervical Cryotherapy Discontinued Colposcopy Discontinued Endometrial Biopsy Discontinued Excision/Leep Discontinued HPV Genotyping Discontinued Vaginal Pap Discontinued Vulvoscopy Discontinued Insurance [employer] PLAN Member Subscriber Plan / Payer (Ef fective 2020-Present) Name:Christal Johnston Relation to Subscriber:Self Name:Christal Johnston Payer ID:[id number] Group ID:[id number] Type:Medicaid Address: [facility] [address] [place] [address]
--- OUTSIDE RECORDS SUMMARY | 2025-01-29 17:20 | XMS_ITS | Clinical Summary ---
Author Organization [employer] Address [address] [facility] [address] [place] [address] Care Team Providers Care Medical Writer Name Role Phone Unavailable Primary Care Provider [...] Date Last Done Comments Depression Screening 1980 Disability Screening 1980 Alcohol/Substance Use Screening 1992 Tobacco Screening 1992 Family Planning (PISQ) 1995 HPV Vaccines (1 - 3-dose series) 1995 DTaP/Tdap/Td Vaccines (1 - Tdap) 1999 Hepatitis B Vaccines (1 of 3 - 19+ 3-dose series) 1999 Pap Smear 2001 Cervical Cancer Screening 2010 HPV/Cotest 2010 Mammogram 2020 COVID-19 Vaccine (1 - 2023-2 5 season) 2025 Influenza Vaccine (#1) 2025 Zoster Vaccines (1 of 2) 2030 RSV [...] patient's age to complete this topic Meningococcal B Vaccine Aged Out No l onger eligible based on patient's age to complete this topic Meningococcal Vaccine Aged Out No reba deyvi eligible based on patient's age to complete this topic Pneumococcal Vaccine: Pediat rics (0 to 5 Years) and At-Risk Patients (6 to 49) Years Aged Out No longer eligible b ased on patient's age to complete this topic RSV under 20 months Aged Out No longe r eligible based on patient's age to complete this topic Rotavirus Vaccines Aged Out No longer eligible based on patient's age to complete this topic
--- OUTSIDE RECORDS SUMMARY | 2025-01-29 17:20 | XMS_ITS | Encounter Summary ---
Author Organization [facility] [facility] Address [address] [facility] [address] [place] [address] Care Team Providers Care Software Support Specialist Name Role Phone Unavailable Primary Care Provider Unavailabl e Encounter Details Date Type Department Care Team (Latest Contact Info) Description 08/15/2018 Abstract [facility] CONVERSIONS Dental, Provider, DDS Social History [...]
== END 2025-01-29 15:19 | disposition home or self-care (01) ==
LOC: HO.HOS 14:34
PROVIDERS: PCP Nurse Practitioner Family
DX: R20.0 Anesthesia of skin (principal); R20.2 Paresthesia of skin
CPT/HCPCS: 99213

== ENCOUNTER → 2025-01-29 14:33 | Outpatient (BNVA) | payer OTHER, SELFPAY | PROVIDERS: PCP Nurse Practitioner Family | DX: R20.2 Paresthesia of skin (principal); R20.0 Anesthesia of skin | CPT/HCPCS: 99212 ==

== ENCOUNTER 2025-02-25 10:53 | Outpatient (AMB) | payer OTHER, SELFPAY ==
--- NOTE | 2025-02-25 10:55 | A.OFFVIS_ITS ---
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 Witnessed apnea/gasping. Patient has (7wks) Accompanied by: Self / Same As Patient Allergies aspirin Allergy (Mild, Verified 02/25/25 11:01) mild HPI Comments Details: 44 year old female presents for an evaluation of sleep apnea She has a 7 week old baby and goes to bed at about 8pm and wakes up 1am or 2am to feed baby and then go back to sleep and wakes up at 7am with baby. She had gestational htn during her , and was prescribed nifedipine 90mg daily. Her BP is well managed. She snores loudly at night, has shortness of breath, gasps for air, and this was worse at the end of her . Her partner complains this has not improved since having the baby. She has asthma and uses 2 inhalers daily and is chronically fatigued. She denies morning headaches and has bruxism. She denies RLS symptoms and parasomnias. Memory, mood and diet is stable. She is staying well hydrated as she is nursing. 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 Current occupational exposures/hazards: No Cognitive needs: No Hearing needs: No Vision needs: No Physical Exam Vital Signs: Last Vital Signs Pulse 90 02/25/25 10:56 BP 126/82 02/25/25 10:56 Pulse Ox 97 02/25/25 10:56 Oxygen Delivery Method Room Air 02/25/25 10:56 BMI result Body Mass Index 32.6 Const General: cooperative, comfortable and no acute distress Nutritional Appearance: average body habitus Orientation/consciousness: patient oriented x3 Resp Effort & Inspection: normal respiratory effort and able to speak in complete sentences Neuro General: patient oriented x3 and moves all extremities Cranial nerves: Yes Normal facial strength present, Yes Ability to bilaterally rotate head present and Yes Ability to bilaterally elevate shoulders present Gait exam (Neuro): Normal gait present Motor exam (neuro): 5/5 motor strength present throughout and Normal motor muscle tone present throughout Psych Appearance: grossly normal Speech and movement: Normal speech and movement present Thought process: Normal thought process present Results Reviewed Results Reviewed: Right median and ulnar motor and sensory studies were performed. Right radial and median and lateral antecubital, radial sensory studies were performed and paraspinal muscles were tested with a needle. IMPRESSION: Unremarkable study. Assessment & Plan Assessment & Plan (1) Excessive daytime sleepiness: Code(s): G47.19 - Other hypersomnia Category: Medical (2) Loud snoring: Code(s): R06.83 - Snoring Category: Medical Plan HST r/o rowena CTS EMG reviewed Labs from 06/2024 reveiwed Labs requested from [facility] Orders: Orders RT home sleep study Today G47.19 - Other hypersomnia Patient Instructions: Sleep Hygiene provided: set a scheduled bedtime and wake time to help regulate the circadian rhythm and balance the release of pituitary hormones. Sleep in a dark room, temperatures below 68 degrees, and no devices n bed. Limit caffeinated products 6 hours prior to bed, and limit fluids 2-4 hours prior to bed. Gentle night yoga, diffusing essential oils, and playing soft music can be relaxing. Coding Level of Care Code New Pt Level 4 (37549) Diagnoses Excessive daytime sleepiness G47.19 Loud snoring R06.83 Sleep Questionnaire Difficulty falling asleep: No Difficulty staying asleep?: No Number of arousals: 2x Snoring: Yes Witnessed apneas: Yes Gasping arousals: Yes Nocturia: No GERD: Yes Vivid dreams: No Acting out dreams: No Abnormal behavior in sleep: No Abnormal movements in sleep: No Morning headaches: No Excessive daytime sleepiness: No Daytime naps: No Restless legs: No Hallucinations: No Sleep paralysis: No Drop attacks: No Sleep Study: No CPAP: No
[2025-02-25 10:56] VITALS: BP 126/82; PULSE 90; O2SAT 97; BMI 32.6
== END 2025-02-25 11:24 | disposition home or self-care (01) ==
LOC: HO.HSMS 10:54
PROVIDERS: PCP Nurse Practitioner Family; Visit Provider Physician Assistant Medical
DX: G47.19 Other hypersomnia (principal); R06.83 Snoring
CPT/HCPCS: 99204

== ENCOUNTER → 2025-02-25 10:53 | Outpatient (BNVA) | payer OTHER, SELFPAY | PROVIDERS: PCP Nurse Practitioner Family; Visit Provider Physician Assistant Medical | DX: G47.19 Other hypersomnia (principal); G47.63 Sleep related bruxism; R06.83 Snoring; J45.909 Unspecified asthma, uncomplicated | CPT/HCPCS: 99202 ==

== ENCOUNTER 2025-04-02 13:01 | Outpatient (REF) | payer OTHER, SELFPAY ==
--- NOTE | 2025-04-02 13:03 | EMG_ITS ---
Chief complaint: Chronic right hand numbness, particularly 1st to 3rd digits Last EMG on right side 04/14/[address] Tena was normal. Reason for referral: Evaluate for Carpal Tunnel Syndrome Referred by: Tyson MAGAÑA Procedure done: Right upper extremity NCS/EMG Precautions and/or limitations: None The limb temperature was monitored continuously and remained between 32-36 degrees C during the performance of the NCS. Nerve Conduction Studies Anti Sensory Summary Table ?Stim Site NR Onset (ms) Norm Onset (ms) Peak (ms) Norm Peak (ms) O-P Amp (?V) Norm O-P Amp Site1 Site2 Delta-0 (ms) Dist (cm) Harman (m/s) Norm Harman (m/s) Right Median Anti Sensory (2nd Digit) Wrist ? 3.6 4.6 <3.6 6.3 >10 Wrist 2nd Digit 3.6 14.0 39 Right Radial Anti Sensory (Thumb) Forearm ? 1.2 1.8 <3.1 23.7 Forearm Thumb 1.2 0.0 Right Ulnar Anti Sensory (5th Digit) Wrist ? 1.9 2.5 <3.7 22.8 >15.0 Wrist 5th Digit 1.9 14.0 74 Motor Summary Table ?Stim Site NR Onset (ms) Norm Onset (ms) O-P Amp (mV) Norm O-P Amp iAmp (mV) Amp (1st) (%) Site1 Site2 Delta-0 (ms) Dist (cm) Harman (m/s) Norm Harman (m/s) Right Median Motor (Abd Poll Brev) Wrist ? 4.5 <3.9 10.5 >4.5 12.4 100.0 Elbow Wrist 3.5 19.0 54 >45 Elbow ? 8.0 11.2 13.2 106.7 Right Ulnar Motor (Abd Dig Minimi) Wrist ? 2.5 <3.0 7.8 >5 9.6 100.0 B Elbow Wrist 2.7 16.5 61 >45 B Elbow ? 5.2 7.5 9.7 96.2 A Elbow B Elbow 0.9 10.0 111 >45 A Elbow ? 6.1 7.1 9.6 91.0 EMG ?Side Muscle Nerve Root Ins Act Fibs Psw Amp Dur Poly Recrt Int Pat Comment Right 1stDorInt Ulnar C8-T1 Nml Nml Nml Nml Nml 0 Nml Complete Right FlexCarRad Median C6-7 Nml Nml Nml Nml Nml 0 Nml Complete Right Biceps Musculocut C5-6 Nml Nml Nml Nml Nml 0 Nml Complete Right Triceps Radial C6-7-8 Nml Nml Nml Nml Nml 0 Nml Complete Right Deltoid Axillary C5-6 Nml Nml Nml Nml Nml 0 Nml Complete FINDINGS: Right median motor nerve showed prolonged distal latency, normal amplitude and normal conduction velocity. Right median sensory nerve showed small amplitude and prolonged peak latency. All other nerves tested were within normal. Concentric needle EMG was performed in selected muscles of the right upper extremity. Study did not reveal signs of electric abnormalities as shown in the table above. IMPRESSION: 1. This is an abnormal study. 2. There is electrodiagnostic evidence for right moderate-severe median neuropathy at the wrist, consistent with carpal tunnel syndrome. 3. There is no electrodiagnostic evidence for ulnar neuropathy, brachial plexopathy, or cervical radiculopathy. Thank you for your kind referral. Neha Gonzalez MD, JUANCARLOS Board Certified, [place] Board of Physical Medicine and Rehabilitation (ABPMR) Board Certified, [place] Board of Electrodiagnostic Medicine (ABEM) CODIN 15600 x 1 extremity MTDD
--- OUTSIDE RECORDS SUMMARY | 2025-04-02 19:14 | XMS_ITS | Clinical Summary ---
Author Organization [facility] Address [address] [place] [address] Care Team Providers Care Marketing Sales Supervisor Name Role Phone Unavailable Primary Care Provider [...] Screening 1980 Diabetes Screening 1980 HPV Screening (self-collect) 1980 HPV Screening 1980 Hepatitis C Screening 1980 Lipid Screening 1980 Pap + HPV 1980 Tobacco Screening 1980 HIV Screening 1995 Relationship Safety Screening/Counseling 1995 Hypertension Screening (#1) 1998 Imm-Hepatitis B (1 of 3 - 19 + 3-dose series) 1999 Cervical Cancer Screening 2001 Pap Smear 2001 Imm-HPV (1 - 3-dose SCDM series) 2007 Breast Cancer Screening (Mammogram) 2020 Imm-DTaP/Tdap/Td (2 - Td or Tdap) 05/07/2022 012 Alcohol and Drug Screen 05/20/2024 Depression Annual Screen 05/20/2024 [id number] ( season) 2025 021, 08/24/2020 Imm-Influenza (#1) 2025 02/01/2020, 0 01/17/2019, 03/30/2014, Additional history exists Cervical Ablation/Cold-Knife Conization Discontinued Cervical Cryotherapy Discontinued Colposcopy Discontinued Excision/Leep Discontinued HPV Genotyping Discontinued Vaginal Pap Discontinued Vulvoscopy Discontinued Insurance [employer] PLAN Member Subscriber Plan / Payer (Ef fective 2020-Present) Name:Christal Johnston Relation to Subscriber:Self Name:Christal Johnston Payer ID:[id number] Group ID:[id number] Type:Medicaid Address: [facility] [address] [place] [address]
--- OUTSIDE RECORDS SUMMARY | 2025-04-02 19:14 | XMS_ITS | Clinical Summary ---
Author Organization [employer] Address [address] [place] [address] Care Team Providers Care Results Engineer Name Role Phone Unavailable Primary Care [...]
--- OUTSIDE RECORDS SUMMARY | 2025-04-02 19:14 | XMS_ITS | Encounter Summary ---
Author Organization [facility] Address [address] [place] [address] Care Team Providers Care Senior Commissary Agent Name Role Phone Unavailable Primary Care Provider Unavailabl e Encounter Details Date Type Department Care Team (Latest Contact Info) Description 08/15/2018 Abstract [facility] CONVERSIONS Dental, Provider, DDS Social History Tobacco [...]
== END 2025-04-02 13:02 | disposition home or self-care (01) ==
LOC: HO.NEURO 13:01
PROVIDERS: PCP Nurse Practitioner Family
DX: R20.0 Anesthesia of skin (principal); R20.2 Paresthesia of skin
CPT/HCPCS: 95886; 95909

== ENCOUNTER → 2025-04-02 13:03 | Outpatient (BNV) | payer OTHER, SELFPAY | PROVIDERS: PCP Nurse Practitioner Family; Visit Provider Physical Medicine & Rehabilitation | DX: G56.11 Other lesions of median nerve, right upper limb (principal) | CPT/HCPCS: 95886; 95909 ==

== ENCOUNTER 2025-04-03 11:46 | Outpatient (REF) | payer OTHER, SELFPAY ==
--- OUTSIDE RECORDS SUMMARY | 2025-04-03 11:50 | XMS_ITS | Encounter Summary ---
Author Organization [facility] Address [address] [place] [address] Care Team Providers Care Junior Accountant Bookkeeper Name Role Phone Unavailable Primary Care Provider Unavailabl e Encounter Details Date Type Department Care Team (Latest Contact Info) Description 08/15/2018 Abstract [facility] CONVERSIONS Dental, Provider, DDS Social History [...]
--- OUTSIDE RECORDS SUMMARY | 2025-04-03 11:50 | XMS_ITS | Clinical Summary ---
Author Organization [facility] Address [address] [place] [address] Care Team Providers Care Observation Assistant Name Role Phone Unavailable Primary Care Provider [...] Drug Screen 05/20/2024 Depression Annual Screen 05/20/2024 [id number]-70 ( season) 2025 021, 08/24/2020 Imm-Influenza (#1) 2025 02/01/2020, 0 01/17/2019, 03/30/2014, Additional history exists Cervical Ablation/Cold-Knife Conization Discontinued Cervical Cryotherapy Discontinued Colposcopy Discontinued Excision/Leep Discontinued HPV Genotyping Discontinued Vaginal Pap Discontinued Vulvoscopy Discontinued Insurance [employer] PLAN Member Subscriber Plan / Payer (Ef fective 2020-Present) Name:Christal Johnston Relation to Subscriber:Self Name:Christal Johnston Payer ID:[id number] Group ID:[id number] Type:Medicaid Address: [facility] [address] [place] [address]
--- OUTSIDE RECORDS SUMMARY | 2025-04-03 11:50 | XMS_ITS | Clinical Summary ---
Author Organization [employer] Address [address] [place] [address] Care Team Providers Care Plaster Model And Mold Maker Name Role Phone Unavailable Primary Care Provider [...]
[2025-04-03 13:39] LABS: MANUAL DIFF FLAG NO
[2025-04-03 13:45] LABS: Hematocrit 38.8 % (37.0-47.0); Hemoglobin 12.9 g/dl (12.0-16.0); Imm Gran Abs Auto 0.01 X10*3/uL (0.00-0.03); Imm Gran Pct Auto 0.2 % (0.0-0.4); Lymphocytes Absolute Auto 1.4 X10*3/uL (1.2-4.9); Mean Corpuscular HGB Conc 33.2 g/dl (31.0-35.0); Mean Corpuscular Hemoglobin 29.5 pg (27.0-33.0); Mean Corpuscular Volume 88.6 fL (80.0-98.0); NRBC Abs Auto 0.000 X10*3/uL (0.0-0.012); NRBC Pct Auto 0.0 /100WBC (0.0-0.2); Platelet Count 242 X10*3/uL (160-400); Red Blood Count 4.38 X10*6/uL (4.20-5.50); White Blood Count 5.1 X10*3/uL (4.8-10.8)
[2025-04-03 13:48] LABS: Appearance Urine Clear; Glucose Urine UA Negative (Negative); PH 6.0 (5.0-9.0); Specific Gravity - Urine 1.025 (1.005-1.025); UMIC TRIGGER UACC YES
[2025-04-03 13:54] LABS: UACC Culture Trigger YES
[2025-04-03 14:02] LABS: Alanine Aminotransferase 23 U/L (0-31); Albumin Level 4.4 g/dL (3.5-5.0); Alkaline Phosphatase 109 U/L (39-117); Anion Gap 16 (12-20); Aspartate Amino Transferase 22 U/L (5-31); Blood Urea Nitrogen 13 mg/dL (9-16); Calcium 9.5 mg/dL (8.4-10.2); Carbon Dioxide 23 mmol/L (22-29); Chloride 106 mmol/L (96-108); Cholesterol 257 mg/dL (<200); Estimated Glomerular Filt Rate > 60; HDL Cholesterol 69 mg/dL (>40); Potassium 4.1 mmol/L (3.3-5.1); Sodium 141 mmol/L (135-145); Total Protein 7.3 g/dL (6.5-8.0); Triglycerides 72 mg/dL (<150)
== END 2025-04-03 11:47 | disposition home or self-care (01) ==
LOC: HO.HMGCLDS 11:46
PROVIDERS: PCP Nurse Practitioner Family; Visit Provider Nurse Practitioner Family
DX: Z00.00 Encounter for general adult medical examination without abnormal findings (principal)
CPT/HCPCS: 36415; 80053; 80061; 81001; 84443; 85025; 87086; 87147

== ENCOUNTER 2025-04-08 14:11 | Outpatient (AMB) | payer OTHER, SELFPAY ==
[2025-04-08 14:16] VITALS: BP 118/78; PULSE 79; RESP 16; O2SAT 98; BMI 33.8
--- NOTE | 2025-04-08 14:16 | A.OFFPC_ITS ---
Vital Signs 04/08/25 14:16 Height 5 ft 2 in Weight 185 lb BMI 33.8 BP 118/78 Blood Pressure Location Lt brachial Position Sitting Respiration 16 Pulse 79 Pulse Source Pulse Oximeter Pulse Oximetry (%) 98 Oxygen Delivery Method Room Air Intake Visit Reasons: Annual PE/Overdue was supposed to be in July Check Cashier Required: No Accompanied by: Self / Same As Patient Allergies aspirin Allergy (Mild, Verified 04/08/25 15:10) mild Medication List - Last Reconciled 04/08/25 by PARIS Yeboah- Advair Diskus 100-50 mcg/dose (fluticasone propion-salmeterol) 1 inh inhalation BID NS [biotin PO] cefuroxime axetil 250 mg PO BID 5 days cetirizine (All Day Allergy (cetirizine)) 10 mg PO DAILY PRN 90 days levothyroxine 88 mcg PO DAILY [prenatals PO] Ventolin HFA 90 mcg/actuation (albuterol sulfate) 2 puffs inhalation Q6H PRN NS Tobacco use date assessed: 04/08/25 Dental Screening Dental Screen Date: 04/08/25 Did you have a dental visit in the last 12 months?: Yes Did you have a dental problem in the last 6 months where you did not have access to dental care?: No Was dental information given to patient?: Patient has dentist HPI Annual PE/Overdue was supposed to be in July HPI Details History of Present Illness The patient is a 44 year old individual presenting for a physical exam. The patient reports doing well overall and denies chest pain, shortness of breath, abdominal pain, diarrhea, suicidal ideation, homicidal ideation, and current sy mptoms of a urinary tract infection. The patient reports constipation and takes Miralax daily for it. Recent labs revealed dyslipidemia. A recent urine culture was positive for Group B Streptococcus. 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 Health Maintenance The patient is due for a mammogram, and an order will be placed now. As the patient will be turning 45 soon, arrangements will be made for a colonoscopy. Social History - The patient is currently . Review of Systems - General: Reports doing well overall. - Cardiovascular: Denies chest pain. - Respiratory: Denies shortness of breat h. - Gastrointestinal: Reports constipation . Denies abdominal pain or diarrhea. - Genitourinary: Denies current signs or symptoms of a UTI. - Psychiatric: Denies suicidal or homici rafael ideation. Physical Exam General: Cooperative, healthy appearing, comfortable, no acute distress and well developed Orientation: Patient oriented x3 Limitations: No limitations Head: Normal to inspection Ears: Hearing grossly normal bilaterally Nose: Normal external nose present Face and sinus: Normal facial exam Eyes: Appearance normal, both eyes and all related structures Neck: Normal visual inspection and Yes full ROM Respiratory: Normal respiratory effort and able to speak in complete sentences. Clear to auscultation bilaterally Cardiovascular: Regular rate and rhythm. Normal S1 and S2 GI: Normal to inspection. Soft to palpation and nontender Skin: No rashes or lesions noted Neuro: Patient oriented x3 Extremities: Normal to inspection Results - Labs: Recent labs show dyslipidemia. - Tests and Diagnostics: Urine culture w as positive for Group B Streptococcus. Plan 1. Group B Streptococcus Bacteriuria The patient has a positive urine culture for Group B Streptococcus but denies symptoms of a UTI. Will treat with a cephalosporin, which is a - safe medication. 2. Constipation The patient reports constipation despite taking MiraLax daily. The plan is to increase MiraLax to twice a day. 3. Dyslipidemia Recent labs showed dyslipidemia. Given that the patient is , medication will be held, and the patient is advised to work on dietary modifications. Follow-up will occur in six months to re-evaluate labs. Discussion Notes I discussed the positive Group B Streptococcus culture and will treat the patient with a cephalosporin, which is safe during . For constipation, I advised the patient to increase MiraLax to twice daily. We reviewed the recent labs showing dyslipidemia, and I recommended focusing on diet while holding medication due to , with a plan to recheck labs in six months. I informed the patient that I am placing an order for a mammogram and will also arrange for a colonoscopy, as the patient is turning 45 soon. Patient Instructions - For your constipation, please increase your MiraLax dose to twice a day. - You will be prescribed an antibiotic ( a cephalosporin) to treat the bacteria found in your urine. This medicine is safe to take while you are . - To help manage your cholesterol, vikram e focus on improving your diet. We will not start any medication at this time because you are . - Please schedule a follow-up appointmen t in six months to check your lab work again. - An order has been placed for you to ge t a mammogram. - We will also get you scheduled for a c olonoscopy for colon cancer screening, as you will be turning 45 soon. 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 1. Little interest or pleasure in doing things: not at all 2. Feeling down, depressed, or hopeless: not at all 3. Trouble falling or staying asleep, or sleeping too much: not at all 4. Feeling tired or having little energy: not at all 5. Poor appetite or overeating: not at all 6. Feeling bad about yourself - or that you are a failure or have let yourself or your family down: not at all 7. Trouble concentrating on things, such as reading the newspaper or watching television: not at all 8. Moving or speaking so slowly that other people could have noticed. Or the opposite - being so fidgety or restless that you have been moving around a lot more than usual: not at all 9. Thoughts that you would be better off or of hurting yourself in some way: not at all Total score: 0 Source: Developed by Drs. Pedro Carmona, Alla Harvey, Adonis Ansari and colleagues, with an educational abraham from [employer]. Thrive Questionnaire Date Thrive assessed: 04/05/25 I am a: Patient What is your living situation today?: I have a steady place to live Within the past 12 months, did the food you bought not last and you didn't have the money to get more?: Never true Within the past 12 months, did you worry whether your food would run out before you got money to buy more?: Never true Do you have trouble paying for medicines?: No Do you have trouble getting transportation to medical appointments?: No Do you have trouble paying your heating and electricity bill?: No Do you have trouble taking care of your child, family member or friend?: No Do you have trouble with day-to-day activities such as bathing, preparing meals, shopping, managing finances, etc.?: No Are you currently unemployed and looking for a job?: No Are you interested in more education?: No Please select the resources that you would like help with: None Currently or been in a relationship where the following occur: No concerns reported THRIVE Score: 0 AUDIT C Alcohol Use Questionnaire (AUDIT-C) 1. How often do you have a drink containing alcohol?: Never Total Score: 0 MARSHALL-7 AMB Questionnaire MARSHALL-7 Date MARSHALL - 7 assessed: 08/05/23 Feeling nervous, anxious, or on edge: 0 = Not at all Not being able to stop or control worryin = Not at all Worrying too much about different things: 0 = Not at all Trouble relaxin = Not at all Being so restless that it is hard to sit still: 0 = Not at all Becoming easily annoyed or irritable: 0 = Not at all Feeling afraid as if something awful might happen: 0 = Not at all Total MARSHALL-7 score (0-4 normal; 5-9 mild; 10-14 moderate; 15-21 severe): 0 Source: Developed by Drs. Pedro Carmona, Alla Harvey, Adonis Ansari and colleagues, with an educational abraham from [employer]. Physical exam (Primary Care) Vital Signs: Last Vital Signs Pulse 79 04/08/25 14:16 Resp 16 04/08/25 14:16 BP 118/78 04/08/25 14:16 Pulse Ox 98 04/08/25 14:16 Oxygen Delivery Method Room Air 04/08/25 14:16 BMI result Body Mass Index 33.8 Tobacco/Smoking Status: Tobacco use Status Tobacco use date assessed 04/08/25 04/08/25 14:22 Patient Tobacco Use Status Never used Tobacco 04/08/25 14:18 e-Cigarette/Vaping Use Never Used 04/08/25 14:18 PHQ-9: PHQ-9 Score PHQ-9: Total score 0 04/08/25 14:18 Thrive Assessment: Date of Thrive Assessment Date Thrive assessed 04/05/25 04/08/25 14:18 Currently or been in a relationship where the following occur: No concerns reported Coding Level of Care Code Est Pt Level 3 (68091) Est Pt Prev Care 40-64y(04846) Diagnoses Encounter for routine adult physical exam with abnormal findings Z00.01 UTI (urinary tract infection) N39.0 Constipation K59.00 Dyslipidemia E78.5 Assessment & Plan Assessment & Plan (1) Encounter for routine adult physical exam with abnormal findings: Code(s): Z00.01 - Encounter for general adult medical examination with abnormal findings Category: Medical (2) UTI (urinary tract infection): Code(s): N39.0 - Urinary tract infection, site not specified Category: Medical (3) Constipation: Code(s): K59.00 - Constipation, unspecified Category: Medical (4) Dyslipidemia: Code(s): E78.5 - Hyperlipidemia, unspecified Category: Medical Plan . Orders: Orders MM tomosynthesis screening BI Today Z12.31 - Encounter for screening mammogram for malignant neoplasm of breast Referrals Gastroenterology Referral Z12.11 - Encounter for screening for malignant neoplasm of colon Medications: New cefuroxime axetil 250 mg PO BID 10 tabs 0RF 5 days
--- OUTSIDE RECORDS SUMMARY | 2025-04-08 19:36 | XMS_ITS | Encounter Summary ---
Author Organization [facility] Address [address] [place] [address] Care Team Providers Care Small Appliance Assembly Supervisor Name Role Phone Unavailable Primary Care Provider Unavailabl e Encounter Details Date Type Department Care Team (Latest Contact Info) Description 08/15/2018 Abstract [facility] CONVERSIONS Dental, Provider, DDS Social History [...]
--- OUTSIDE RECORDS SUMMARY | 2025-04-08 19:36 | XMS_ITS | Clinical Summary ---
Author Organization [employer] Address [address] [place] [address] Care Team Providers Care It Infrastructure Engineer Name Role Phone Unavailable Primary Care [...] 2010 Mammogram 2020 COVID-19 Vaccine (1 - 2024-2 6 season) 2025 Influenza Vaccine (#1) 2025 Zoster [...]
== END 2025-04-08 15:36 | disposition home or self-care (01) ==
LOC: HO.HMCC 14:11
PROVIDERS: PCP Nurse Practitioner Family; Visit Provider Nurse Practitioner Family
DX: Z00.01 Encounter for general adult medical examination with abnormal findings (principal); N39.0 Urinary tract infection, site not specified; K59.00 Constipation, unspecified; E78.5 Hyperlipidemia, unspecified

== ENCOUNTER → 2025-04-08 14:11 | Outpatient (BNVA) | payer OTHER, SELFPAY | PROVIDERS: PCP Nurse Practitioner Family; Visit Provider Nurse Practitioner Family | DX: Z00.01 Encounter for general adult medical examination with abnormal findings (principal); N39.0 Urinary tract infection, site not specified; K59.00 Constipation, unspecified; E78.5 Hyperlipidemia, unspecified | CPT/HCPCS: 99212; 99396 ==

== ENCOUNTER → 2025-05-19 14:29 | Outpatient (REF) | payer OTHER, SELFPAY ==
--- OUTSIDE RECORDS SUMMARY | 2025-05-19 15:37 | XMS_ITS | Clinical Summary ---
Author Organization [employer] Address [address] [place] [address] Care Team Providers Care U.S. Commissioner Name Role Phone Unavailable Primary Care Provider [...]
--- OUTSIDE RECORDS SUMMARY | 2025-05-19 15:38 | XMS_ITS | Encounter Summary ---
Author Organization [employer] [facility] Address [address] [place] [address] Care Team Providers Care Preventive Maintenance Coordinator Name Role Phone Unavailable Primary Care Provider Unavailabl e Encounter Details Date Type Department Care Team (Latest Contact Info) Description 08/15/2018 Abstract [facility] CONVERSIONS Dental, Provider, DDS Social History Tobacco [...]
== END ==
LOC: HO.SL 14:29
PROVIDERS: PCP Nurse Practitioner Family; Visit Provider Physician Assistant Medical
DX: G47.19 Other hypersomnia (principal)
CPT/HCPCS: 95806